=== PATIENT | female | born 1940 | race Caucasian/White ===

== ENCOUNTER 2021-12-04 18:03 | Emergency (ER) | payer MEDICARE, OTHER, SELFPAY ==
[2021-12-04 18:10] VITALS: BP 144/53; PULSE 56; TEMP 36.3; O2SAT 96; BMI 22.7
--- NOTE | 2021-12-04 18:23 | CRLHL7_ITS ---
For Patients: As a result of the Century Cures Act, medical imaging exams and procedure reports are released immediately into your electronic medical record. You may view this report before your referring provider. If you have questions, please contact your health care provider. Indication: Right buttock pain. Technique: Pelvis 1 view. Comparison: None. Findings: Bones: Alignment is normal. No fractures or bone lesions. Joint spaces: Mild degenerative changes of the bilateral SI joints and bilateral hips.. Soft tissues: Unremarkable. Impression: No findings to explain pain. Dictated by Jerry Reyes MD @ 12/04/2021 6:46:44 PM (Electronically Signed)
--- NOTE | 2021-12-04 18:24 | ED.BACK ---
HPI - Back Pain/Injury General Chief Complaint: Back Injury/Pain Stated Complaint: Lower back Pain Time Seen by Provider: 12/04/21 18:14 History of Present Illness HPI Narrative: This 81-year-old female comes in reporting pain in her right upper buttock radiating down a bit into her right upper leg. This began about a week ago and is not related to any particular injury event or strenuous activity. The patient states that she typically walks but has not had any new activity. She states that this pain keeps her awake at night. She does not report any midline pain along her spine. Related Data Home Medications Medication Instructions Recorded Confirmed fluoxetine 20 mg capsule 20 mg PO DAILY 12/04/21 12/04/21 folic acid 1 mg tablet 1 mg PO DAILY 12/04/21 12/04/21 methotrexate sodium 2.5 mg tablet 15 mg PO .weekly 12/04/21 12/04/21 Previous Rx's Medication Instructions Recorded methylprednisolone 4 mg tablets in 4 mg PO DAILY #21 ea 12/04/21 a dose pack (Medrol (Jessee)) Allergies Allergy/AdvReac Type Severity Reaction Status Date / Time No Known Drug Allergies Allergy Verified 12/04/21 18:13 Review of Systems Status of ROS: Reports: 10 or more systems reviewed and unremarkable except as noted in History and below Narrative: Constitutional: No fevers, no weight gain or loss. Eyes: No discharge. No vision changes. HENT: No congestion, no sore throat, no ear pain. Cardiovascular: No chest pain, no palpitations. Respiratory: No shortness of breath, no wheezes, no cough. Gastrointestinal: No abdominal pain, no vomiting, no diarrhea. Genitourinary: No dysuria, no hematuria. Musculoskeletal: Low back pain and right buttock pain as described above. Skin: No rashes, no pruritis. Neurological: No dizziness, weakness, sensory change, speech change. Endo/Heme/Allergies: No bruising or bleeding. No polydipsia. Pysch: no suicidality, no anxiety, no insomnia. All other systems reviewed and are negative. Exam Narrative: Exam Narrative: Constitutional: Well-developed, well-nourished, no acute distress. HEENT: Normocephalic, atraumatic. Neck: Normal range of motion. Nontender. Supple. Heart: Regular. No murmurs. Normal rate. Intact distal pulses. Lungs: Clear to auscultation. No chest discomfort. No wheezes, rhonchi, or rales. Abdomen: Normal bowel sounds. Nontender. No rebound tenderness. Genitalia: Deferred. Back: No midline tenderness. Normal range of motion. Pain is localized in right buttock just below the belt line and radiating a bit down into the lower buttock and right upper leg. Extremities: Normal range of motion. No injury. Skin: Intact. No rash. Warm. No erythema or pallor. Neurologic: No altered sensation. No weakness. Alert and oriented. Psychiatric: No suicidality. No anxiety or depression. No insomnia. Nursing notes and vitals signs are reviewed. Const: Vital Signs, click to edit/add: Vital Signs - 24 hr 12/04/21 18:10 Temperature 97.4 F L Pulse Rate [Left P ulse Oximeter] 56 L Blood Pressure [Ri ght Upper Arm] 144/53 H Pulse Oximetry 96 Oxygen Delivery Me thod Room Air Course Vital Signs Vital signs: Initial Vital Signs Temperature 97.4 F L 12/04/21 18:10 Temperature Source Temporal Artery Scan 12/04/21 18:10 Pulse Rate 56 L 12/04/21 18:10 Blood Pressure 144/53 H 12/04/21 18:10 Blood Pressure Mean 83 12/04/21 18:10 Blood Pressure Position Supine 12/04/21 18:10 Pulse Oximetry 96 12/04/21 18:10 Oxygen Delivery Method 12/04/21 18:10 Vital Signs Temperature 97.4 F L 12/04/21 18:10 Pulse Rate 56 L 12/04/21 18:10 Blood Pressure 144/53 H 12/04/21 18:10 Pulse Oximetry 96 12/04/21 18:10 Oxygen Delivery Method 12/04/21 18:10 Temperature 97.4 F L 12/04/21 18:10 Pulse Rate 56 L 12/04/21 18:10 Blood Pressure 144/53 H 12/04/21 18:10 Pulse Oximetry 96 12/04/21 18:10 Oxygen Delivery Method 12/04/21 18:10 MDM - Back Pain/Injury MDM Narrative Medical decision making narrative: This patient comes in with rather severe pain in her right buttock as described above. There was no particular injury event or strenuous activity to bring this on. X-ray of the pelvis was completed and the patient received an intramuscular injection of morphine 5 mg. X-ray of the pelvis shows no findings to explain the patient's pain. This is more likely due to soft tissue, in particular, the sciatic nerve and muscle spasm in the buttock. The patient did receive prescription for some tablets of [place] and Flexeril. These are sedating medicines but she was unable to sleep because the pain. She also received a prescription for Medrol Dosepak. I advised her to follow-up with her primary physician for further evaluation and management if not improving. Imaging Data XR Pelvis: Radiologist's impression: No findings to explain pain. Discharge Plan Discharge Clinical Impression: Sciatica Patient Disposition: Home, Self-Care Condition: Stable Instructions: Sciatica (ED) Additional Instructions: Take medication as needed and prescribed. Follow up with primary physician for ongoing management as needed. Prescriptions: New methylprednisolone [Medrol (Jessee)] 4 mg tablets,dose pack 4 mg PO DAILY Qty: 21 0RF No Action fluoxetine 20 mg capsule 20 mg PO DAILY Label Comments: TAKE ONE CAPSULE BY MOUTH (20MG) ONCE DAILY folic acid 1 mg tablet 1 mg PO DAILY Label Comments: TAKE ONE TABLET BY MOUTH ONCE DAILY methotrexate sodium 2.5 mg tablet 15 mg PO .weekly Label Comments: TAKE 6 TABLETS (15MG) BY MOUTH ONCE WEEKLY Follow Up/Referrals: Guerrero Hodge MD [Primary Care Provider] - Stand Alone Forms: [employer] Info Instructions
--- NOTE | 2021-12-04 18:36 | ED.NURSE ---
Apparent medication discrepancy noted by credit underwriter. Pt had 2 bottle of Prozac, many pills in both bottles still. Bottle instructions were 1 tablet daily. First bottle was fill date of 08/20/21 with original qty 90 pills (still many pills left). 2nd bottle was fill date of 11/15/21 and appeared unopened. MD and pt's daughter notified of discrepancy.
[2021-12-04] MEDS: MORPHINE 10 MG/ML inj 5 MG IM (18:51)
[2021-12-04 19:08] VITALS: BP 148/67; PULSE 56; RESP 18; O2SAT 95
== END 2021-12-04 19:15 | disposition home or self-care (01) ==
PROVIDERS: Emergency Provider Emergency Medicine Emergency Medical Services; PCP Family Medicine
DX: M54.41 Lumbago with sciatica, right side (principal)
CPT/HCPCS: 72170; 96372; 99283; 99284; J2270

== ENCOUNTER 2021-12-13 13:02 | Outpatient (CLI) | payer MEDICARE, OTHER, SELFPAY | END 2021-12-13 13:03 | disposition home or self-care (01) | PROVIDERS: PCP Family Medicine; Visit Provider Family Medicine | DX: S89.92XA Unspecified injury of left lower leg, initial encounter (principal); R44.1 Visual hallucinations; R41.82 Altered mental status, unspecified; W18.30XA Fall on same level, unspecified, initial encounter; Y92.099 Unspecified place in other non-institutional residence as the place of occurrence of the external cause | CPT/HCPCS: A0425; A0427 ==

== ENCOUNTER 2021-12-13 13:22 | Inpatient (IN) | payer MEDICARE, OTHER, SELFPAY ==
--- NOTE | 2021-12-13 13:47 | CRLHL7_ITS ---
For Patients: As a result of the Century Cures Act, medical imaging exams and procedure reports are released immediately into your electronic medical record. You may view this report before your referring provider. If you have questions, please contact your health care provider. INDICATION: Fall with confusion and weakness. TECHNIQUE: CT head without contrast. COMPARISON: None. FINDINGS: CSF spaces: Within normal limits for age. Brain parenchyma and extra-axial spaces: The schultz-white differentiation is normal. No sign of mass, hemorrhage, or midline shift. No extra-axial fluid collection. Right occipital lobe encephalomalacia. Skull base and calvarium: The visualized paranasal sinuses and mastoid air cells demonstrate no acute or significant findings. The visualized orbits are grossly unremarkable. No skull fractures. IMPRESSION: No acute findings present. 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 Remainder of the exam is unremarkable. Please note that all CT scans at this facility use dose modulation, iterative reconstruction, and/or weight-based dosing when appropriate to reduce radiation dose to as low as reasonably achievable. Dictated by Everardo Chandler MD @ 12/13/2021 2:40:31 PM (Electronically Signed)
--- NOTE | 2021-12-13 13:47 | CRLHL7_ITS ---
For Patients: As a result of the 21st Century Cures Act, medical imaging exams and procedure reports are released immediately into your electronic medical record. You may view this report before your referring provider. If you have questions, please contact your health care provider. INDICATION: Trauma COMPARISON: No TECHNIQUE: CT examination of the chest, abdomen and pelvis was performed without intravenous contrast. Thin section axial images were obtained from the thoracic inlet through the pubic symphysis. Oral contrast was not administered. Sagittal and coronal reformatted imaging was performed Please note that all CT scans at this facility use dose modulation, iterative reconstruction, and/or weight-based dosing when appropriate to reduce radiation dose to as low as reasonably achievable. FINDINGS: CHEST: Heart size normal. No mediastinal or hilar adenopathy or mass. No pericardial effusion. No abnormal fluid in the mediastinum. Atherosclerotic vascular and valvular calcifications noted. The lungs show biapical pleural-parenchymal scarring. Background pattern of emphysema and linear and reticular opacities consistent with scarring and fibrosis. Bibasilar atelectasis. No definite acute posttraumatic finding. No pleural effusion or pneumothorax. A few small nodules are noted which are statistically most likely benign. ABDOMEN AND PELVIS: LIVER/BILIARY SYSTEM:The liver is normal in size and configuration given the lack of intravenous contrast. There is no visible focal mass and there is no intra- or extra hepatic biliary ductal dilatation.The gall bladder appears normal. ADRENALS: Normal non-contrast appearance KIDNEYS, URETERS and BLADDER:The right kidney is unremarkable. And 2.8 centimeters cyst noted in the midpole on the left appearing to no obstructive uropathy. Distended but otherwise unremarkable appearing bladder. SPLEEN:Normal non-contrast appearance. PANCREAS: Normal non-contrast appearance. RETROPERITONEUM and MESENTERY: There is no mass, adenopathy or aortic aneurysm. Dense atherosclerotic vascular calcifications GASTROINTESTINAL SYSTEM: There is no evidence of diverticulitis, colitis, mechanical obstruction, or appendicitis. The small bowel as visualized appears normal.Fecal retention. Diverticulosis PELVIS: No mass, adenopathy or free fluid. OSSEOUS STRUCTURES and ABDOMINAL WALL: Demineralized osseous structures and degenerative changes. No visible acute osseous injury. Cutaneous and subcutaneous induration in the high left thoracic region anteriorly is probably hemorrhage associated with direct trauma. This is in the region of the left clavicle which is not fully visualized on this study. Consider radiography of this area. OTHER: No free fluid or free air. IMPRESSION: 1. CHEST: No evidence of intrathoracic injury on this noncontrast study. Chronic appearing abnormalities as described above 2. ABDOMEN AND PELVIS: No visible acute injury on this noncontrast study 3. SOFT TISSUES AND OSSEOUS STRUCTURES: Cutaneous and subcutaneous induration anterior to the left clavicle which is not fully visualized on this study. This is probably soft tissue contusion though consider clavicle radiography if this area is tender. No visible acute fracture or destructive process identified on this exam. Please note that all CT scans at this facility use dose modulation, iterative reconstruction, and/or weight-based dosing when appropriate to reduce radiation dose to as low as reasonably achievable. Dictated by Marko Bernard MD @ 12/13/2021 2:40:36 PM (Electronically Signed)
--- NOTE | 2021-12-13 13:51 | ED.GENADULT ---
HPI - General Adult General Time Seen by Provider: 13:51 Date Seen: 12/13/21 Chief complaint: Fall/Minor Trauma Stated complaint: Fall Time Seen by Provider: 12/13/21 13:33 Source: patient Mode of arrival: EMS Limitations: no limitations History of Present Illness HPI narrative: Patient is an 81 year white female who lives at [facility] in apparently assisted living, she was found on the ground this morning and brought by EMS to the hospital. The patient reports her about 3 years ago, but she has been confused about person place; at this point in the ER we do not note her baseline is in terms of mental status. She denies pain or injury, but there is some blistering on her left arm and some superficial skin avulsion consistent with being down for period of time. The patient's mouth is very dry. She denies other complaints. From her chart appear she has been on methotrexate. Denies cough fever, but the patient is a poor historian likely due to her medical illness Related Data Home Medications Medication Instructions Recorded Confirmed fluoxetine 20 mg capsule 20 mg PO DAILY 12/04/21 12/04/21 folic acid 1 mg tablet 1 mg PO DAILY 12/04/21 12/04/21 methotrexate sodium 2.5 mg tablet 15 mg PO .weekly 12/04/21 12/04/21 Previous Rx's Medication Instructions Recorded methylprednisolone 4 mg tablets in 4 mg PO DAILY #21 ea 12/04/21 a dose pack (Medrol ([place])) Allergies Allergy/AdvReac Type Severity Reaction Status Date / Time No Known Drug Allergies Allergy Verified 12/04/21 18:13 Review of Systems Narrative: Unable to obtain accurate review of systems due to patient's cognitive condition, she denies any pain or discomfort, denies chest pain or shortness of breath Exam Narrative: Exam Narrative: Objective: In general the patient is alert, she talks in understandable sentences, but she appears easily confused. Talks about living with her but he 3 years ago by her report Vital signs are being obtained HEENT shows severely dry mucous membranes in the mouth no obvious facial asymmetry neck is supple Chest is clear Heart rate and rhythm regular 2/6 systolic murmur occasional ectopic beat noted Abdomen benign soft nontender, extremities she moves her hips fully I am able to flex extend her hips fully internally externally rotate them she has got some skin changes on her left forearm that are like small blisters that are opened, non infectious, she denies any back pain. Neurologically is grossly nonfocal Const: Vital Signs, click to edit/add: Vital Signs - 24 hr 12/13/21 14:09 Temperature 96.7 F L Pulse Rate [Right Pulse Oximeter] 86 Respiratory Rate 18 Blood Pressure [Ri ght Upper Arm] 180/64 H Pulse Oximetry 97 Oxygen Delivery Me thod Room Air Course Vital Signs Vital signs: Initial Vital Signs Temperature 96.7 F L 12/13/21 14:09 Temperature Source Temporal Artery Scan 12/13/21 14:09 Pulse Rate 86 12/13/21 14:09 Respiratory Rate 18 12/13/21 14:09 Blood Pressure 180/64 H 12/13/21 14:09 Blood Pressure Mean 102 12/13/21 14:09 Blood Pressure Position Sitting 12/13/21 14:09 Pulse Oximetry 97 12/13/21 14:09 Oxygen Delivery Method 12/13/21 14:09 Vital Signs Temperature 96.7 F L 12/13/21 14:09 Pulse Rate 86 12/13/21 14:09 Respiratory Rate 18 12/13/21 14:09 Blood Pressure 180/64 H 12/13/21 14:09 Pulse Oximetry 97 12/13/21 14:09 Oxygen Delivery Method 12/13/21 14:09 Temperature 96.7 F L 12/13/21 14:09 Pulse Rate 86 12/13/21 14:09 Respiratory Rate 18 12/13/21 14:09 Blood Pressure 180/64 H 12/13/21 14:09 Pulse Oximetry 97 12/13/21 14:09 Oxygen Delivery Method 12/13/21 14:09 Medical Decision Making [facility] Narrative Medical decision making narrative: Patient is an 81 year white female with probable rheumatic disease on methotrexate by chart history, who lives in assisted living and has possibly been down for at least a couple of days on the ground. She is severely dehydrated. I think would be appropriate to rule out infection, check urinalysis, blood cultures, CT scan of the head chest abdomen. Urinalysis cardiac studies, EKG, telemetry, oximetry, IV fluid as mention. CPK will be checked as well rule out rhabdo Lab Data Labs: Lab Results 12/13/21 12/13/21 12/13/21 Range/Units 13:49 14:00 14:00 WBC 21.78 H (4.50-11.00) K/uL RBC 4.02 (4.00-5.20) m/uL Hgb 12.9 (12.0-16.0) gm/dL Hct 38.1 (33.0-51.0) % MCV 95 (80-100) fL MCH 32 (26-34) pg MCHC 34 (32-36) gm/dL RDW Coeff of Kathleen 15.0 (11.5-15.5) % Plt Count 237 (140-440) K/uL Neut % (Auto) 89.5 H (42.0-72.0) % Lymph % (Auto) 1.9 L (20-44) % Dillon % (Auto) 8.1 (0.0-11.0) % Eos % (Auto) 0.0 (0.0-7.0) % Baso % (Auto) 0.0 (0.0-3.0) % Neut # (Auto) 19.50 H (1.7-7.0) K/uL Lymph # (Auto) 0.40 L (0.90-2.90) K/uL Dillon # (Auto) 1.80 H (0.00-0.90) K/UL Eos # (Auto) 0.00 (0.00-0.50) K/uL Baso # (Auto) 0.00 (0.00-0.30) K/uL Abs Immat Gran (auto) 0.11 (0.00-0.30) K/uL VBG pH (7.32-7.43) VBG pCO2 (40-50) mmHG VBG pO2 (25-47) mmHG VBG HCO3 (21-28) mmol/L Sodium Cancelled Potassium Cancelled Chloride Cancelled Carbon Dioxide Cancelled BUN Cancelled Creatinine Cancelled Estimated Creat Clear Cancelled Estimated GFR Cancelled Glucose Cancelled Venous Lactic Acid (Serial Order) Calcium Cancelled Total Bilirubin (0.1-1.5) mg/dL Direct Bilirubin (0.0-0.5) mg/dL AST (12-35) U/L ALT (4-35) U/L Alkaline Phosphatase (40-150) U/L Total Creatine Kinase Cancelled Troponin I (0.01-0.04) ng/mL C-Reactive Protein (0.5-1.0) mg/dL NT-Pro-B Natriuret Pep (0-450) PG/mL Total Protein (6.0-8.3) g/dL Albumin (3.3-5.0) g/dL Amylase Cancelled Ethyl Alcohol (0.01-0.03) % SARS-CoV-2 (PCR) (Negative) 12/13/21 12/13/21 12/13/21 Range/Units 14:00 14:00 14:25 WBC (4.50-11.00) K/uL RBC (4.00-5.20) m/uL Hgb (12.0-16.0) gm/dL Hct (33.0-51.0) % MCV (80-100) fL MCH (26-34) pg MCHC (32-36) gm/dL RDW Coeff of Kathleen (11.5-15.5) % Plt Count (140-440) K/uL Neut % (Auto) (42.0-72.0) % Lymph % (Auto) (20-44) % Dillon % (Auto) (0.0-11.0) % Eos % (Auto) (0.0-7.0) % Baso % (Auto) (0.0-3.0) % Neut # (Auto) (1.7-7.0) K/uL Lymph # (Auto) (0.90-2.90) K/uL Dillon # (Auto) (0.00-0.90) K/UL Eos # (Auto) (0.00-0.50) K/uL Baso # (Auto) (0.00-0.30) K/uL Abs Immat Gran (auto) (0.00-0.30) K/uL VBG pH 7.343 (7.32-7.43) VBG pCO2 41 (40-50) mmHG VBG pO2 59.8 H (25-47) mmHG VBG HCO3 23 (21-28) mmol/L Sodium 136 Potassium 3.9 Chloride 101 Carbon Dioxide 21 BUN 42 H Creatinine 0.8 Estimated Creat Clear Estimated GFR 74 Glucose 147 H Venous Lactic Acid (Serial Order) Calcium 8.9 Total Bilirubin 1.1 (0.1-1.5) mg/dL Direct Bilirubin 0.7 H (0.0-0.5) mg/dL AST 87 H (12-35) U/L ALT 71 H (4-35) U/L Alkaline Phosphatase 145 (40-150) U/L Total Creatine Kinase 479 H Troponin I 0.02 (0.01-0.04) ng/mL C-Reactive Protein 5.4 H (0.5-1.0) mg/dL NT-Pro-B Natriuret Pep 2740 H (0-450) PG/mL Total Protein 7.9 (6.0-8.3) g/dL Albumin 3.9 (3.3-5.0) g/dL Amylase 61 Ethyl Alcohol < 0.01 L (0.01-0.03) % SARS-CoV-2 (PCR) Negative SARS-CoV-2 (Negative) Discharge Plan Discharge Clinical Impression: Weakness Prescriptions: No Action fluoxetine 20 mg capsule 20 mg PO DAILY Label Comments: TAKE ONE CAPSULE BY MOUTH (20MG) ONCE DAILY folic acid 1 mg tablet 1 mg PO DAILY Label Comments: TAKE ONE TABLET BY MOUTH ONCE DAILY methotrexate sodium 2.5 mg tablet 15 mg PO .weekly Label Comments: TAKE 6 TABLETS (15MG) BY MOUTH ONCE WEEKLY methylprednisolone [Medrol ([place])] 4 mg tablets,dose pack 4 mg PO DAILY Qty: 21 0RF Follow Up/Referrals: Guerrero Hodge MD [Primary Care Provider] -
[2021-12-13 14:09] VITALS: BP 180/64; PULSE 86; RESP 18; TEMP 35.9; O2SAT 97
[2021-12-13 14:11] LABS: HCO3 VBG 23 mmol/L (21-28); PCO2 VBG 41 mmHG (40-50); PO2 VBG 59.8 mmHG (25-47); pH VBG 7.343 (7.32-7.43)
[2021-12-13 14:18] LABS: Lactate Sepsis w/Reflex* 3.4 mmol/L (0.5-1.9)
[2021-12-13 14:42] LABS: INR 1.47 (0.91-1.10); Prothrombin Time 18.2 Seconds
[2021-12-13 14:43] LABS: Partial Thromboplastin Time* 36 Seconds (23-33)
[2021-12-13 14:47] LABS: Albumin* 3.9 g/dL (3.3-5.0); Chloride* 101 mmol/L (96-114)
[2021-12-13 14:48] LABS: Potassium* 3.9 mmol/L (3.6-5.1); Sodium* 136 mmol/L (135-149)
[2021-12-13 14:50] LABS: Amylase* 61 U/L (18-89); Bilirubin Direct* 0.7 mg/dL (0.0-0.5); Bilirubin Total* 1.1 mg/dL (0.1-1.5); Carbon Dioxide* 21 mmol/L (20-32); Creatinine* 0.8 mg/dL (0.5-1.5); Estimated Glomerular Filt Rate 74 ml/min; Total Protein* 7.9 g/dL (6.0-8.3)
[2021-12-13 14:51] LABS: Alanine Aminotransferase* 71 U/L (4-35); Alkaline Phosphatase* 145 U/L (40-150); Aspartate Amino Transferase* 87 U/L (12-35); Blood Urea Nitrogen* 42 mg/dL (7-30); Calcium* 8.9 mg/dL (8.4-10.6); Creatine Kinase* 479 U/L (41-117); Glucose* 147 mg/dL (60-115)
[2021-12-13 14:53] LABS: C Reactive Protein* 5.4 mg/dL (0.5-1.0)
[2021-12-13 14:54] LABS: Ethanol* < 0.01 % (0.01-0.03); Hematocrit 38.1 % (33.0-51.0); Hemoglobin* 12.9 gm/dL (12.0-16.0); Immature Granulocytes Abs Auto 0.11 K/uL (0.00-0.30); Lymphocytes Percent Auto 1.9 % (20-44); Mean Corpuscular HGB Conc 34 gm/dL (32-36); Mean Corpuscular Hemoglobin 32 pg (26-34); Mean Corpuscular Volume 95 fL (80-100); Monocytes Percent Auto 8.1 % (0.0-11.0); Neutrophils Percent Auto 89.5 % (42.0-72.0); Platelet Count* 237 K/uL (140-440); Red Blood Count 4.02 m/uL (4.00-5.20); White Blood Count* 21.78 K/uL (4.50-11.00)
[2021-12-13 14:56] LABS: Slide Review Reflex No
[2021-12-13 14:59] LABS: NT Pro B Type NatriureticPept* 2740 PG/mL (0-450)
[2021-12-13] MEDS: 0.9 % SODIUM CHLORIDE 1000 ml 1,000 ML 6000 ML IV (15:00)
[2021-12-13 15:02] LABS: Troponin I* 0.02 ng/mL (0.01-0.04)
[2021-12-13 15:33] VITALS: BP 170/78; PULSE 88; RESP 18; TEMP 36.2; O2SAT 97
[2021-12-13 15:33] LABS: SARS PCR* Negative SARS-CoV-2 (Negative)
[2021-12-13] MEDS: PIPERACILLIN/TAZOBACTAM 3.375 GM in 0.9 % SODIUM CHLORIDE Mini-bag 100 ML IVPB (15:48)
--- NOTE | 2021-12-13 15:54 | W.PC.EDHO ---
Primary Language: Preferred Language: Orientation Status: [] Alert & Oriented [x] Slight Confusion [] Known Dx Dementia Transfers By: [] Assist of 1 [x] Assist of 2 [] Lift Active Medications Discontinued Medications Generic Name Dose Route Start Last Admin Trade Name Freq PRN Reason Stop Dose Admin Sodium Chloride 1,000 mls @ 6,000 mls/hr 12/13/21 14:00 12/13/21 15:00 0.9 % Sodium Chloride 1000 Ml IV 12/13/21 14:09 6,000 mls/hr .Q10M JIMMY Administration Piperacillin Sod/Tazobactam 100 mls @ 200 mls/hr 12/13/21 15:03 12/13/21 15:48 Sod 3.375 gm/ Sodium Chloride IVPB 12/13/21 15:04 200 mls/hr ONCE ONE Administration Description of Symptoms ED Triage Present Problem per EMS, pt was found down on floor x 3 days. pt Description has no physical Female History Patient Patient No Oxygen Administration Pulse Oximetry 97 Oxygen Delivery Method Room Air
[2021-12-13 16:39] LABS: Lactate Sepsis 2 Hour 1.6 mmol/L (0.5-1.9)
[2021-12-13 17:03] VITALS: BP 163/72; PULSE 74; RESP 20; TEMP 37.4; O2SAT 97
[2021-12-13] MEDS: 0.9 % SODIUM CHLORIDE 1000 ml 1,000 ML IV (18:04)
--- NOTE | 2021-12-13 18:18 | PC.NURSE ---
End of Shift Note: Patient arrived to the floor around 1700 from the ER. Patient at first was answering questions appropriately she was able to tell me her name and that she was in the hospital but when asked her what year it is she responds with 2020. She the proceeds to talk to others in the room that are not present at this time as it was only her and this designer writer in the room. Noted her to be inc of urine so did wash her up from head to toe. Was able to then view her skin which is intact for the most part slightly pink groin. Her bottom is intact no open areas noted is slightly pink. Back too is intact. Under her breast is a little reddened. She is currently eating dinner so have not completed a whole assessment heart, lungs, bowels as of yet. She also needs to do some oral care yet. She does have two daughters who are present currently in the room with her. She is currently receiving IV fluids. Still needs to do a UA. When she was inc urine does appear to be on the dark side from what could see in her brief. She also has a cardiac catheterization technician on but with her eating and moving have been unable to get a tele strip ran on her. Will continue to monitor and give report to the next shift.
[2021-12-13 19:45] VITALS: BP 169/90; PULSE 94; RESP 24; TEMP 37.4; O2SAT 100
--- NOTE | 2021-12-13 20:05 | P.IMHP_ITS ---
Hospitalist- H&P: HPI History of Present Illness Time Seen by Provider: 15:00 Date Seen: 12/13/21 Chief complaint: Fall Narrative: Lori Scott is a 81 year old woman who lives in an assisted living setting at [facility]. Today the patient failed to pick and shovel worker her meals on wheels. Staff were concerned and checked on her and found her on the floor. Patient was not making sense when they try talking with her. They brought to the emergency department for further assessment. In trying to piecemeal what happened, they are getting virtually no meaningful information from the patient. According to the patient's daughters, the assisted living setting has a procedure for checking on patient's daily via telephone call and sometimes monitoring there temperatures daily. For some reason it appears as though this was not followed on Monday, Monday, Monday. In hindsight no one has spoken with the patient or seen the patient during this time frame. The conjecture that likely the patient was on the floor for at least the past 3 days. All of her medications that she ordinarily takes and are set up in [facility] [employer] were still not taken from that time frame. Patient has back and lower extremity pains and discomforts which are chronic. Does not have worsening of these pains. Does not have loss of function of any extremity or side of her body. It is difficult to carry on a conversation with the patient due to her hyper alert and manic type disposition. Be that as it may, she denies loss of consciousness. She does not recall much of the past several days. She states she has not ate or drank for a while and that she does not have an appetite. Denies fevers, rigors, diaphoresis. Denies chest heaviness, pressure, tightness, or pain. Denies dyspnea or cough. Denies syncope or near-syncope. Denies nausea or vomiting. Denies palpitations. Denies edema. Denies constipation, diarrhea. Denies dysphagia, odynophagia, dyspepsia or abdominal pain. Denies any type of blood loss. No recent trauma or injury. Review of Systems Status of ROS: Reports: 10 or more systems reviewed and unremarkable except as noted in History and below Narrative: No weight gain or weight loss. No upper or lower respiratory tract symptoms. No gastrointestinal or genitourinary tract symptoms. Seems to have very little memory of what transpired over the last 2-3 days. Speaking rapidly and sequentially about various things. She tells me and others to speak with people who are around her home we cannot see. Some of these people whom she refers to our relatives including her . Easily redirectable in conversation. No obvious suicidal thoughts or ideations. No obvious homicidal thoughts or ideations. No focal motor neurologic deficits. No polyuria, polydipsia, polyphagia. [facility] Medical History Cognitive impairment Dysthymia Essential (primary) hypertension Memory deficit Methotrexate, termite control service representative, current use Rheumatoid arthritis, seropositive Sensorineural hearing loss (SNHL) of both ears Surgical History History of section Family History Mother Gastric cancer Father Cancer Brother Cancer Social History Highest level of school completed/degree received: don't know Smoking Status: Unknown if ever smoked Do you use any of these nicotine containing products: None Second hand tobacco smoke exposure: No How often do you have a drink containing alcohol: monthly or less AUDIT-C Alcohol total score: 1 Non-prescribed substance use: denies use Meds Home Medications and Allergies Home Medications Medication Instructions Recorded Confirmed Type fluoxetine 20 mg capsule 20 mg PO DAILY 12/04/21 12/13/21 History folic acid 1 mg tablet 1 mg PO DAILY 12/04/21 12/13/21 History methotrexate sodium 2.5 mg tablet 15 mg PO .weekly 12/04/21 12/13/21 History aspirin 81 mg tablet,delayed 81 mg PO DAILY 12/13/21 12/13/21 History release donepezil 5 mg tablet 5 mg PO HS 12/13/21 12/13/21 History rivastigmine 4.6 mg/24 hour 1 patch transdermal DAILY 12/13/21 12/13/21 History transdermal patch Allergies Allergy/AdvReac Type Severity Reaction Status Date / Time No Known Drug Allergies Allergy Verified 12/04/21 18:13 Exam Narrative: Exam Narrative: Appears manic. Speaking a lot and not listening well. Moves from 1 topic to another quickly. Often interjects and ask questions of people who are not there and asked us to talk with him as well. Appears comfortable and in no acute distress. Alert, oriented to self only not place, time, or situation. Has disorganized thinking. Nevertheless recognizes her daughters. Has inattention. Difficult for her to focus. Almost has a flight of ideas. By the time I see her she is certainly moving all 4 extremities. Fidgety. Seems hypervigilant. Pupils are equally round and reactive to light and accommodation. Extraocular muscles intact. Vision seems preserved. Hearing for the most part preserved and intact. Normal tympanic membranes bilaterally. Midline nasal septum. Very dry buccal mucosa. Lungs remarkably clear to auscultation. Heart tones with regular rhythm normal S1-S2. Abdomen with active bowel sounds, soft, nontender. No rebound or guarding. [id number] swelling of left upper extremity with blistering. Reportedly this is improving over time from when she was 1st found. Skin otherwise intact. No petechiae, rashes, cyanosis. Moves all 4 extremities. Const: Vital Signs, click to edit/add: Vital Signs - 24 hr 12/13/21 14:09 12/13/21 15:33 12/13/21 17:03 Temperature 96.7 F L 97.2 F L 99.4 F Pulse Rate [Right Pulse Oximeter] 86 88 Pulse Rate [Right Radial] 74 Respiratory Rate 18 18 20 Blood Pressure [Ri ght Arm] 163/72 H Blood Pressure [Ri ght Upper Arm] 180/64 H 170/78 H Pulse Oximetry 97 97 97 Oxygen Delivery Me thod Room Air Room Air Room Air Documenting provider has reviewed patient's vital signs: yes Hospitalist - H&P: Result Labs Labs: Short CBC 12/13/21 Range/Units 14:00 WBC 21.78 H (4.50-11.00) K/uL Hgb 12.9 (12.0-16.0) gm/dL Hct 38.1 (33.0-51.0) % Plt Count 237 (140-440) K/uL BMP 12/13/21 12/13/21 14:00 14:00 Sodium Cancelled 136 Potassium Cancelled 3.9 Chloride Cancelled 101 Carbon Dioxide Cancelled 21 BUN Cancelled 42 H Creatinine Cancelled 0.8 Glucose Cancelled 147 H Calcium Cancelled 8.9 Cardiac Enzymes 12/13/21 12/13/21 12/13/21 Range/Units 14:00 14:00 14:00 Total Creatine Kinase Cancelled 479 H Cancelled Troponin I 0.02 (0.01-0.04) ng/mL Liver Function 12/13/21 Range/Units 14:00 Total Bilirubin 1.1 (0.1-1.5) mg/dL Direct Bilirubin 0.7 H (0.0-0.5) mg/dL AST 87 H (12-35) U/L ALT 71 H (4-35) U/L Alkaline Phosphatase 145 (40-150) U/L Albumin 3.9 (3.3-5.0) g/dL Assessment and Plan Assessment and plan (1) Acute delirium: Status: Acute Assessment and Plan: Etiology is likely multifactorial. With baseline declining cognition, most consistent with evolving dementia of the Alzheimer's type, in combination with her acute condition, these seem to have culminated in her delirious state. Consider head injury and trauma, liver failure, infection, evolving psychiatric condition. (2) Weakness: Status: Acute (3) Memory deficit: Status: Acute (4) Cognitive impairment: Status: Acute (5) Methotrexate, termite control service representative, current use: Status: Acute (6) Rheumatoid arthritis, seropositive: Status: Acute (7) Sciatica: Status: Acute (8) Sensorineural hearing loss (SNHL) of both ears: Status: Acute (9) Rhabdomyolysis: Status: Acute (10) Abnormal liver function tests: Status: Acute (11) Leukocytosis: Status: Acute (12) Dehydration: Status: Acute Plan 1. Reviewed impression with patient and her 2 daughters Supriya and Luciana. 2. Initiated discussion with our social insurance adviser staff, requesting them to assist with discharge disposition planning. 3. Physical occupational therapy to assess and treat. 4. Will attempt non pharmacological support of her delirium at this time. 5. IV fluid rehydration regarding the rhabdomyolysis. Monitor CKs. 6. Monitor other labs including CBC and liver function studies. Certainly the methotrexate that she takes can cause these liver function abnormalities. 7. Hold the methotrexate for now. 8. Continue with other supportive efforts. 9. Blood cultures urine cultures obtained. Will hold off on empiric antibiotics at this juncture. 10. The patient and her 2 daughters are agreeable to above stated plans and recommendations.
[2021-12-13 22:03] VITALS: PULSE 87
[2021-12-13 23:00] VITALS: BP 142/68; PULSE 88; RESP 28; TEMP 37.3; O2SAT 100
[2021-12-14] VITALS (21 sets, daily range): BP systolic 91–167; BP diastolic 47–79; PULSE 69–88; RESP 20–28; TEMP 36.2–37.2; O2SAT 92–98
--- NOTE | 2021-12-14 04:36 | PC.NURSE ---
[facility] notified of positive BC
--- NOTE | 2021-12-14 04:54 | W.PM.CROSSCO ---
Assessment and Plan Assessment and plan (1) Leukocytosis: Status: Acute (2) Bacteremia: Status: Acute Plan Clyde Immanuel Pattersonist Cross Cover Note eHospitalist was contacted by nursing staff with concern of positive blood cultures Notified of persistently positive blood cultures, + GPC. Chart reviewed. Patient is on vancomycin. Prior culture results reviewed, appears organism is MSSA. If no evidence of MRSA, would transition from vancomycin to cefazolin or nafcillin/oxacillin. Will defer to day provider to adjust if feel it is warranted. Thank you for including Carlos A Carvajal in this patient's care. This service is available for further assistance as requested by your care team by calling [phone]. Dictation Comment: This document was transcribed utilizing [id number] technology ([employer] software). Occasional mistranslation may occur.
[2021-12-14] MEDS: PIPERACILLIN/TAZOBACTAM 3.375 GM in 0.9 % SODIUM CHLORIDE Mini-bag 100 ML IVPB ×4 (05:42→22:39)
[2021-12-14 06:47] LABS: HCO3 VBG 24 mmol/L (21-28); Lactate* 0.8 mmol/L (0.5-1.9); PCO2 VBG 36 mmHG (40-50); PO2 VBG 79.7 mmHG (25-47); pH VBG 7.437 (7.32-7.43)
[2021-12-14 06:56] LABS: Basophils Percent Auto 0.1 % (0.0-3.0); Eosinophils Percent Auto 0.1 % (0.0-7.0); Hematocrit 31.3 % (33.0-51.0); Hemoglobin* 10.6 gm/dL (12.0-16.0); Immature Granulocytes Abs Auto 0.04 K/uL (0.00-0.30); Lymphocytes Percent Auto 4.2 % (20-44); Mean Corpuscular HGB Conc 34 gm/dL (32-36); Mean Corpuscular Hemoglobin 32 pg (26-34); Mean Corpuscular Volume 94 fL (80-100); Monocytes Percent Auto 9.5 % (0.0-11.0); Neutrophils Percent Auto 85.8 % (42.0-72.0); Platelet Count* 191 K/uL (140-440); RDW Coefficient of Variation % 15.5 % (11.5-15.5); Red Blood Count 3.32 m/uL (4.00-5.20); White Blood Count* 15.59 K/uL (4.50-11.00)
--- NOTE | 2021-12-14 06:58 | PC.NURSE ---
END OF SHIFT NOTE: PT PLEASANTLY CONFUSED. PT SHOWS SIGNS OF DELIRIUM; HALLUCINATING AND SPEAKING TO PEOPLE NOT PRESENT IN THE ROOM; INCLUDING HER WHO HAS BEEN FOR 1.5YRS. PT EASILY DISTRACTED AND SPEAKING TO HALLUCINATIONS.?ATTEMPTED TO PROVIDED ORAL HYGIENE TO PT; PT DECLINED. ATTEMPTED TO TRANSFER PT TO [facility] TO VOID, HOWEVER PT WAS TOO WEAK TO SIT UP. UPDATE VIA PHONE CALL WITH DAUGHTER ALIRIO. T&P Q2H. BLOOD CULTURE RESULTS- GRAM POSITIVE COCCI IN CLUSTERS. TELE READS NSR. PT STARTED ZOSYN AND VANCOMYCIN. MILD SWELLING TO LUE AND BLISTERING. OPEN TO AIR NO DRAINAGE. ATTEMPTED TO OBTAIN UA WITH BED KEE; PT UNABLE TO VOID AT THAT TIME. CHANGED X2 INCONTINENT WET BRIEFS.
[2021-12-14 07:06] LABS: Slide Review Reflex No
[2021-12-14 07:09] LABS: Albumin* 2.7 g/dL (3.3-5.0); Chloride* 105 mmol/L (96-114)
[2021-12-14 07:10] LABS: Potassium* 3.5 mmol/L (3.6-5.1); Sodium* 133 mmol/L (135-149)
[2021-12-14 07:11] LABS: Cholesterol* 163 mg/dL (90-199); Creatinine* 0.8 mg/dL (0.5-1.5); Est. Creatinine Clearance* 38.75; Estimated Glomerular Filt Rate 74 ml/min
[2021-12-14 07:12] LABS: Alkaline Phosphatase* 89 U/L (40-150); Aspartate Amino Transferase* 83 U/L (12-35); Bilirubin Direct* 0.3 mg/dL (0.0-0.5); Bilirubin Total* 0.6 mg/dL (0.1-1.5); Blood Urea Nitrogen* 31 mg/dL (7-30); Carbon Dioxide* 23 mmol/L (20-32); Gamma Glutamyl Transpeptidase* 51 U/L (8-55); Glucose* 129 mg/dL (60-115); Phosphorus* 2.1 mg/dL (2.5-4.5); Total Protein* 5.8 g/dL (6.0-8.3); Triglycerides* 88 mg/dL (40-149)
[2021-12-14 07:13] LABS: Alanine Aminotransferase* 51 U/L (4-35); Calcium* 7.7 mg/dL (8.4-10.6); HDL Cholesterol* 37 mg/dL (>=50); LDL Cholesterol Calculated 108 mg/dL (<100); Magnesium* 2.1 mg/dL (1.5-2.6)
[2021-12-14 07:34] LABS: INR 1.17 (0.91-1.10); Prothrombin Time 15.3 Seconds; Troponin I* 0.07 ng/mL (0.01-0.04)
[2021-12-14 07:42] LABS: Thyroid Stimulating Hormone* 0.777 uIU/mL (0.270-4.20)
[2021-12-14] MEDS: ACETAMINOPHEN 325 MG TABLET 650 MG PO (07:49)
[2021-12-14 08:00] LABS: Creatine Kinase* 206 U/L (41-117)
[2021-12-14 08:10] LABS: NT Pro B Type NatriureticPept* 3080 PG/mL (0-450)
[2021-12-14] MEDS: ASPIRIN 81 MG TABLET EC PO (08:37)
[2021-12-14] MEDS: FLUOXETINE HCL 20 MG CAPSULE PO (08:37)
[2021-12-14] MEDS: FOLIC ACID 1 MG TABLET PO (08:37)
[2021-12-14 10:07] LABS: Appearance Urine Slightly Cloudy (Clear); Bilirubin Urine Negative (Negative); Blood Urine 2+ (Negative); Color Urine Yellow (Yellow); Glucose Urine Negative (Negative); Ketones Urine Trace (Negative); Leukocyte Esterase Urine Negative (Negative); Nitrite Urine Negative (Negative); Protein Urine 2+ (Negative); Specific Gravity Urine 1.025 (1.000-1.030)
--- NOTE | 2021-12-14 10:11 | PM.IMPN1 ---
Progress Note: A&P Assessment and plan (1) Sepsis, Gram positive: Status: Acute Assessment and Plan: move to CCU portable chest place garza gram + bacteremia. source unclear at this time - mouth/skin. no obvious joints involved. IV vanc and zosyn fluids coagulopathy improved blood mayra unremarkable, reassuring bilirubin improving (2) Gram-positive bacteremia: Status: Acute Assessment and Plan: IV vanc/zosyn awaiting c/s (3) Acute delirium: Status: Acute Assessment and Plan: worsening. less responsive. (4) Leukocytosis: Status: Acute Assessment and Plan: improving (5) Rhabdomyolysis: Status: Acute Assessment and Plan: mild, improving. normal renal function. (6) CHF with unknown LVEF: Status: Acute Assessment and Plan: fluid status: weight is up from baseline, down overnight IV lasix one dose, potassium supplementation (7) Coagulation disorder: Status: Acute Assessment and Plan: improved (8) Cognitive impairment: Status: Acute (9) Rheumatoid arthritis, seropositive: Status: Acute (10) Methotrexate, alf, current use: Status: Acute Subjective Date Seen: 12/14/21 Interval history: Daily Progress Note - Hospital Medicine Day #: 1 CC: Sepsis, positive blood cultures. OVERNIGHT UPDATES FROM STAFF & MED, LAB, IMAGING UPDATES Team Note END OF SHIFT NOTE: PT PLEASANTLY CONFUSED. PT SHOWS SIGNS OF DELIRIUM; HALLUCINATING AND SPEAKING TO PEOPLE NOT PRESENT IN THE ROOM; INCLUDING HER WHO HAS BEEN FOR 1.5YRS. PT EASILY DISTRACTED AND SPEAKING TO HALLUCINATIONS. ATTEMPTED TO PROVIDED ORAL HYGIENE TO PT; PT DECLINED. ATTEMPTED TO TRANSFER PT TO [facility] TO VOID, HOWEVER PT WAS TOO WEAK TO SIT UP. UPDATE VIA PHONE CALL WITH DAUGHTER ALIRIO. T&P Q2H. BLOOD CULTURE RESULTS- GRAM POSITIVE COCCI IN CLUSTERS. TELE READS NSR. PT STARTED ZOSYN AND VANCOMYCIN. MILD SWELLING TO LUE AND BLISTERING. OPEN TO AIR NO DRAINAGE. ATTEMPTED TO OBTAIN UA WITH BED KEE; PT UNABLE TO VOID AT THAT TIME. CHANGED X2 INCONTINENT WET BRIEFS. Spoke with her daughters who are bedside this morning. Lori is much less responsive. We have noted the below findings which include positive blood cultures, bruising on the left side of her face. We discussed sepsis and the organ systems it seems to be affecting. I talked about my treatment plan. Spent 30 minutes bedside. All imaging reviewed: CT head, CAP CT and pelvic xray. LABS: Her leukocytosis is downtrending 21-15. She is growing Gram-positive cocci in at least 1 of her bottles. With hydration it shows that she is anemic 10.6 Coagulopathy has somewhat improved Troponin bumped this morning from normal yesterday Her potassium has dropped to mildly low Her CK is down trending. Blood gas was reassuring The bilirubin has improved REVIEW OF SYSTEMS: SEE SUBJECTIVE Not possible given her current alertness OBJECTIVE: VITALS: SEE ABOVE LUNGS: CLEAR. Coarse sounds bilaterally CARDIAC: S1S2. HER WEIGHT THE LAST TIME SHE WAS IN THE EMERGENCY ROOM EARLIER THIS MONTH WAS 58 KG, 127 LB. LAST NIGHT HER WEIGHT WAS 139.7 LB, 63.5 KILOS THIS MORNING IS 134, 61 KILOS Patient is less responsive today. sleeping and groggy to stimulation. I spoke to her and she opened her eyes and tried to smile - she looked to her left and noted her daughters and promptly went back to sleep. Mild tachypnea without accessory muscle use. Sats borderline at 90% on room air. The left side of her face, left shoulder are bruised/swollen. tender across left rib cage and grimaces with range of motion of her left leg. skin irritation on her right elbow and left forearm. DISPOSITION/POTENTIAL DISCHARGE - LIKELY TO RETURN TO PREVIOUS LIVING SITUATION. TOTAL TIME IS 35 MINUTES WITH GREATER THAN 50% SPENT IN COUNSELING AND COORDINATION OF CARE. Exam Const: Vital Signs, click to edit/add: Vital Signs - 24 hr 12/13/21 14:09 12/13/21 15:33 12/13/21 17:03 Temperature 96.7 F L 97.2 F L 99.4 F Pulse Rate Pulse Rate [Right Pulse Oximeter] 86 88 Pulse Rate [Right Radial] 74 Respiratory Rate 18 18 20 Blood Pressure [Ri ght Arm] 163/72 H Blood Pressure [Ri ght Upper Arm] 180/64 H 170/78 H Pulse Oximetry 97 97 97 Oxygen Delivery Me thod Room Air Room Air Room Air 12/13/21 19:45 12/13/21 22:03 12/13/21 23:00 Temperature 99.3 F Pulse Rate 87 Pulse Rate [Right Pulse Oximeter] Pulse Rate [Right Radial] 94 88 Respiratory Rate 24 28 H Blood Pressure [Ri ght Arm] 169/90 H Blood Pressure [Ri ght Upper Arm] Pulse Oximetry 100 Oxygen Delivery Me thod Room Air 12/13/21 23:00 12/14/21 03:00 12/14/21 07:00 Temperature 99.2 F 98.7 F Pulse Rate Pulse Rate [Right Pulse Oximeter] Pulse Rate [Right Radial] 88 86 88 Respiratory Rate 28 H 28 H 25 H Blood Pressure [Ri ght Arm] 142/68 H 156/74 H Blood Pressure [Ri ght Upper Arm] Pulse Oximetry 100 92 Oxygen Delivery Me thod Room Air Room Air 12/14/21 07:00 Temperature 98.9 F Pulse Rate Pulse Rate [Right Pulse Oximeter] Pulse Rate [Right Radial] 88 Respiratory Rate 25 H Blood Pressure [Ri ght Arm] 167/79 H Blood Pressure [Ri ght Upper Arm] Pulse Oximetry 95 Oxygen Delivery Me thod Room Air Labs Labs: Laboratory Results - last 24 hr 12/13/21 12/13/21 12/13/21 13:49 14:00 14:00 WBC 21.78 H RBC 4.02 Hgb 12.9 Hct 38.1 MCV 95 MCH 32 MCHC 34 RDW Coeff of Kathleen 15.0 Plt Count 237 Neut % (Auto) 89.5 H Lymph % (Auto) 1.9 L [place] % (Auto) 8.1 Eos % (Auto) 0.0 Baso % (Auto) 0.0 Neut # (Auto) 19.50 H Lymph # (Auto) 0.40 L [place] # (Auto) 1.80 H Eos # (Auto) 0.00 Baso # (Auto) 0.00 Abs Immat Gran (auto) 0.11 INR APTT VBG pH VBG pCO2 VBG pO2 VBG HCO3 Sodium Cancelled Potassium Cancelled Chloride Cancelled Carbon Dioxide Cancelled BUN Cancelled Creatinine Cancelled Estimated Creat Clear Cancelled Estimated GFR Cancelled Glucose Cancelled Lactate Venous Lactic Acid (Serial Order) Calcium Cancelled Phosphorus Magnesium Total Bilirubin Direct Bilirubin GGT AST ALT Alkaline Phosphatase Total Creatine Kinase Cancelled Troponin I C-Reactive Protein NT-Pro-B Natriuret Pep Total Protein Albumin Triglycerides Cholesterol LDL Cholesterol, Calc HDL Cholesterol Amylase Cancelled TSH Ethyl Alcohol SARS-CoV-2 (PCR) 12/13/21 12/13/21 12/13/21 14:00 14:00 14:00 WBC RBC Hgb Hct MCV MCH MCHC RDW Coeff of Kathleen Plt Count Neut % (Auto) Lymph % (Auto) [place] % (Auto) Eos % (Auto) Baso % (Auto) Neut # (Auto) Lymph # (Auto) [place] # (Auto) Eos # (Auto) Baso # (Auto) Abs Immat Gran (auto) INR 1.47 H APTT 36 H VBG pH 7.343 VBG pCO2 41 VBG pO2 59.8 H VBG HCO3 23 Sodium 136 Potassium 3.9 Chloride 101 Carbon Dioxide 21 BUN 42 H Creatinine 0.8 Estimated Creat Clear Estimated GFR 74 Glucose 147 H Lactate Venous Lactic Acid (Serial Order) Calcium 8.9 Phosphorus Magnesium Total Bilirubin 1.1 Direct Bilirubin 0.7 H GGT AST 87 H ALT 71 H Alkaline Phosphatase 145 Total Creatine Kinase 479 H Troponin I 0.02 C-Reactive Protein 5.4 H NT-Pro-B Natriuret Pep 2740 H Total Protein 7.9 Albumin 3.9 Triglycerides Cholesterol LDL Cholesterol, Calc HDL Cholesterol Amylase 61 TSH Ethyl Alcohol < 0.01 L SARS-CoV-2 (PCR) 12/13/21 12/13/21 12/14/21 14:00 14:25 06:12 WBC 15.59 H RBC 3.32 L Hgb 10.6 L Hct 31.3 L MCV 94 MCH 32 MCHC 34 RDW Coeff of Kathleen 15.5 Plt Count 191 Neut % (Auto) 85.8 H Lymph % (Auto) 4.2 L [place] % (Auto) 9.5 Eos % (Auto) 0.1 Baso % (Auto) 0.1 Neut # (Auto) 13.40 H Lymph # (Auto) 0.70 L [place] # (Auto) 1.50 H Eos # (Auto) 0.00 Baso # (Auto) 0.00 Abs Immat Gran (auto) 0.04 INR APTT VBG pH VBG pCO2 VBG pO2 VBG HCO3 Sodium Potassium Chloride Carbon Dioxide BUN Creatinine Estimated Creat Clear Estimated GFR Glucose Lactate Venous Lactic Acid (Serial Order) Calcium Phosphorus Magnesium Total Bilirubin Direct Bilirubin GGT AST ALT Alkaline Phosphatase Total Creatine Kinase Cancelled Troponin I C-Reactive Protein NT-Pro-B Natriuret Pep Total Protein Albumin Triglycerides Cholesterol LDL Cholesterol, Calc HDL Cholesterol Amylase TSH Ethyl Alcohol SARS-CoV-2 (PCR) Negative SARS-CoV-2 12/14/21 12/14/21 12/14/21 06:12 06:12 06:12 WBC RBC Hgb Hct MCV MCH MCHC RDW Coeff of Kathleen Plt Count Neut % (Auto) Lymph % (Auto) [place] % (Auto) Eos % (Auto) Baso % (Auto) Neut # (Auto) Lymph # (Auto) [place] # (Auto) Eos # (Auto) Baso # (Auto) Abs Immat Gran (auto) INR 1.17 H APTT VBG pH 7.437 H VBG pCO2 36 L VBG pO2 79.7 H VBG HCO3 24 Sodium 133 L Potassium 3.5 L Chloride 105 Carbon Dioxide 23 BUN 31 H Creatinine 0.8 Estimated Creat Clear 38.75 Estimated GFR 74 Glucose 129 H Lactate 0.8 Venous Lactic Acid (Serial Order) Calcium 7.7 L Phosphorus 2.1 L Magnesium 2.1 Total Bilirubin 0.6 Direct Bilirubin 0.3 GGT 51 AST 83 H ALT 51 H Alkaline Phosphatase 89 Total Creatine Kinase 206 H Troponin I 0.07 H* C-Reactive Protein NT-Pro-B Natriuret Pep 3080 H Total Protein 5.8 L Albumin 2.7 L Triglycerides 88 Cholesterol 163 LDL Cholesterol, Calc 108 H HDL Cholesterol 37 L Amylase TSH Ethyl Alcohol SARS-CoV-2 (PCR) 12/14/21 06:12 WBC RBC Hgb Hct MCV MCH MCHC RDW Coeff of Kathleen Plt Count Neut % (Auto) Lymph % (Auto) [place] % (Auto) Eos % (Auto) Baso % (Auto) Neut # (Auto) Lymph # (Auto) [place] # (Auto) Eos # (Auto) Baso # (Auto) Abs Immat Gran (auto) INR APTT VBG pH VBG pCO2 VBG pO2 VBG HCO3 Sodium Potassium Chloride Carbon Dioxide BUN Creatinine Estimated Creat Clear Estimated GFR Glucose Lactate Venous Lactic Acid (Serial Order) Calcium Phosphorus Magnesium Total Bilirubin Direct Bilirubin GGT AST ALT Alkaline Phosphatase Total Creatine Kinase Troponin I C-Reactive Protein NT-Pro-B Natriuret Pep Total Protein Albumin Triglycerides Cholesterol LDL Cholesterol, Calc HDL Cholesterol Amylase TSH 0.777 Ethyl Alcohol SARS-CoV-2 (PCR)
[2021-12-14 10:43] LABS: WBC Urine 0-2 (0-5)
[2021-12-14 10:44] LABS: Amorphous Sediment Urine Moderate; Bacteria Urine Moderate
--- NOTE | 2021-12-14 10:45 | CRLHL7_ITS ---
For Patients: As a result of the Cures Act, medical imaging exams and procedure reports are released immediately into your electronic medical record. You may view this report before your referring provider. If you have questions, please contact your health care provider. INDICATION: Sepsis. TECHNIQUE: Chest 1 views. COMPARISON: None. FINDINGS: Lungs: Coarse interstitial markings suggest chronic changes. No focal consolidation. Pleura: Small left pleural effusion. Heart and Mediastinum: The cardiomediastinal silhouette is normal. The vessels are unremarkable. Bones: Unremarkable. IMPRESSION: Small left pleural effusion. Dictated by Keagan Delgado MD @ 12/14/2021 11:16:52 AM (Electronically Signed)
--- NOTE | 2021-12-14 10:57 | REH.PT ---
Pt moving to CCU advised writer technical publications to hold PT at this time. Will recheck status tomorrow.
[2021-12-14] MEDS: POTASSIUM CHLORIDE 10 MEQ/100 ML PIGGYBACK 100 MEQ IVPB ×2 (10:59→12:13)
[2021-12-14] MEDS: FUROSEMIDE 10 MG/ML inj 40 MG IVP (10:59)
[2021-12-14] MEDS: 0.9 % SODIUM CHLORIDE 1000 ml 1,000 ML 100 ML IV ×2 (11:34→20:47)
[2021-12-14] MEDS: PANTOPRAZOLE SODIUM 40 MG INJ IVP (11:36)
[2021-12-14 12:18] LABS: PCR FLU A Negative PCR FLU A (Negative); PCR FLU B Negative PCR FLU B (Negative); PCR RSV Negative PCR RSV (Negative)
[2021-12-14 12:19] LABS: SARS PCR* Negative SARS-CoV-2 (Negative)
--- NOTE | 2021-12-14 13:00 | PC.NURSE ---
orthostatic blood pressure not done as patient is too weak to participate and just woke up at noon today. Is visiting with the daughters at bedside.
[2021-12-14 13:23] LABS: C Reactive Protein* 8.9 mg/dL (0.5-1.0)
[2021-12-14 13:42] LABS: Troponin I* 0.08 ng/mL (0.01-0.04)
--- NOTE | 2021-12-14 14:42 | PC.NURSE ---
Pt transferred from room 245 to CCU status for sepsis/AMS (CCU-3) at 10:55 am. Pt unresponsive and on 2L/NC. Please see frequent VS and eMar for medications administered. Assumed care of this patient from Maryse Miguel RN, pt settled per Paulo Tompkins RN w/assist of Herminia Pham RN and myself. Dtr Supriya updated and present in room. Pt received IV Lasix 40 mg and first of KCL 10 mEQ IV infusions. Second IV site started #20 R hand by Paulo BEY. IVF NS @ 100cc/hr initiated, pt also received IV Protonix 40 mg and IV Zosyn per the 2nd IV site. Portable CXR completed. Second Potassium 10mEq infused w/o difficulty to left IV site. COVID swab, influenza A& B and RSV obtained, all serology results negative. Troponin repeated 0.08 and CRP noted to be 8.9, Herminia Pham RN notified Dr. Heaton of these elevated lab values. Pt became more awake after #16 Garza catheter inserted and she couldn't remember what had happened earlier in the shift. Pt's dtr (POA) Luciana updated on lab results and plan of care for her mother at bedside. Echocardiogram completed. Pt sleeping on the left side, RR normal, sats maintained on room air at this time. Tele indicates NSR w/o ectopy. Orthostatic bps deferred d/to pt's weakness and AMS this am. Tolerated 75% of her lunch tray and 1000cc drained from garza catheter (450cc from initial insertion and 550cc @ 1400). Report to oncoming shift.
--- NOTE | 2021-12-14 15:28 | PC.NURSE ---
Pt. lethargic and difficult to arouse, woke w/sternal rub. Tachypneic w/RR 28, O2 sats 89% MD notified in to see pt. at bedside. 2L NC placed, family at bedside. Straight cath for UA. transferred to CCU at 1050.
--- NOTE | 2021-12-14 18:14 | PC.NURSE ---
Pt. drowsy, lethargic. Continuous visitors presented throughout the afternoon/evening, pt. able to carry on meaningful conversations. O2 sats mid 90s on RA. RR 18-20. Lung sounds coarse throughout. Afebrile. Denies pain.
[2021-12-14] MEDS: ENOXAPARIN 40 MG/0.4 ML INJ SUBCUT (20:47)
[2021-12-15] VITALS (11 sets, daily range): BP systolic 125–178; BP diastolic 56–78; PULSE 66–82; RESP 18–48; TEMP 36.7–37.9; O2SAT 93–96
[2021-12-15] MEDS: ACETAMINOPHEN 325 MG TABLET 650 MG PO ×3 (01:22→18:21)
[2021-12-15] MEDS: PIPERACILLIN/TAZOBACTAM 3.375 GM in 0.9 % SODIUM CHLORIDE Mini-bag 100 ML IVPB ×3 (04:49→17:06)
--- NOTE | 2021-12-15 05:15 | PC.NURSE ---
Positive blood culture called to [facility]
--- NOTE | 2021-12-15 06:52 | PC.NURSE ---
Alert and pleasantly confused. Needs reminders for orientation. Vitals stable. On room air. Afebrile. Slept late around 0100 because she wanted to go home. Reoriented and repositioned to help with back pain. Tylenol also administered for pain. Valladares intact and patent. Abx administered as per orders. No further concerns noted
[2021-12-15 07:08] LABS: HCO3 VBG 27 mmol/L (21-28); Ionized Calcium* 1.02 mmol/L (1.11-1.30); Lactate* 0.8 mmol/L (0.5-1.9); PCO2 VBG 43 mmHG (40-50); PO2 VBG 49.4 mmHG (25-47); pH VBG 7.403 (7.32-7.43)
[2021-12-15 07:12] LABS: Hematocrit 30.6 % (33.0-51.0); Hemoglobin* 10.4 gm/dL (12.0-16.0); Mean Corpuscular HGB Conc 34 gm/dL (32-36); Mean Corpuscular Hemoglobin 32 pg (26-34); Mean Corpuscular Volume 93 fL (80-100); Platelet Count* 172 K/uL (140-440); Red Blood Count 3.28 m/uL (4.00-5.20); White Blood Count* 11.34 K/uL (4.50-11.00)
[2021-12-15 07:13] LABS: Slide Review Reflex No
[2021-12-15 07:34] LABS: INR 1.26 (0.91-1.10); Prothrombin Time 16.2 Seconds
[2021-12-15 07:40] LABS: Albumin* 2.3 g/dL (3.3-5.0); Chloride* 102 mmol/L (96-114); Sodium* 133 mmol/L (135-149)
[2021-12-15 07:43] LABS: Alkaline Phosphatase* 106 U/L (40-150); Aspartate Amino Transferase* 85 U/L (12-35); Bilirubin Total* 0.7 mg/dL (0.1-1.5); Carbon Dioxide* 25 mmol/L (20-32); Creatinine* 0.8 mg/dL (0.5-1.5); Est. Creatinine Clearance* 38.75; Estimated Glomerular Filt Rate 74 ml/min; Total Protein* 5.1 g/dL (6.0-8.3)
[2021-12-15 07:44] LABS: Alanine Aminotransferase* 58 U/L (4-35); Blood Urea Nitrogen* 18 mg/dL (7-30); Calcium* 6.9 mg/dL (8.4-10.6); Gamma Glutamyl Transpeptidase* 145 U/L (8-55); Glucose* 101 mg/dL (60-115); Lipase* 75 U/L (23-300); Magnesium* 1.8 mg/dL (1.5-2.6)
[2021-12-15 07:52] LABS: NT Pro B Type NatriureticPept* 2860 PG/mL (0-450)
[2021-12-15 07:53] LABS: Potassium* 2.7 mmol/L (3.6-5.1)
[2021-12-15 07:59] LABS: Troponin I* 0.12 ng/mL (0.01-0.04)
[2021-12-15 08:14] LABS: Creatine Kinase* 73 U/L (41-117)
--- NOTE | 2021-12-15 08:14 | CRLHL7_ITS ---
For Patients: As a result of the Century Cures Act, medical imaging exams and procedure reports are released immediately into your electronic medical record. You may view this report before your referring provider. If you have questions, please contact your health care provider. Indication: LT CLAVICULAR/SHOULDER PAIN Technique: Two views left clavicle Comparison: None Findings: No fracture is present. Scarring at the right lung apex. Vascular calcifications. Chronic degenerative cystic changes at the left humeral head at the greater tuberosity. Mild spurring at the AC joint. Left lung apex clear. Impression: Intact left clavicle without fracture or destructive osseous lesion. Dictated by Dalton Ramirez MD @ 12/15/2021 10:42:49 AM (Electronically Signed)
[2021-12-15] MEDS: POTASSIUM CHLORIDE 10 MEQ/100 ML PIGGYBACK 100 MEQ IVPB ×3 (08:41→11:11)
--- NOTE | 2021-12-15 09:41 | P.IMPN_ITS ---
Progress Note: A&P Assessment and plan (1) Rhabdomyolysis: Status: Acute Assessment and Plan: Improving with normal CK today. (2) Gram-positive bacteremia: Status: Acute Assessment and Plan: Continue to follow blood cultures until negative. Continue vancomycin and Zosyn. (3) Abnormal liver function tests: Status: Acute Assessment and Plan: Presumably related to recent fall and acute illness. Continue to follow. (4) Rheumatoid arthritis, seropositive: Status: Acute (5) Sciatica: Status: Acute Assessment and Plan: Appreciate input from PT. Trial of Lidocaine patch. (6) Weakness: Status: Acute Assessment and Plan: Appreciate input from PT and OT; will likely require SNF placement on discharge. (7) Hypokalemia: Status: Acute Assessment and Plan: Replace, continue to follow. (8) Normocytic anemia: Status: Acute Assessment and Plan: No evidence of acute bleeding, continue to follow. (9) Elevated troponin: Status: Acute Assessment and Plan: Patient denies chest pain. Echo findings per above. Plan 81-year-old female admitted after fall at home, down for 3 days, problem list per above. Lovenox for prophylaxis. Dispo: See above; appreciate input from PT, OT, and social work. Daughters updated at bedside, questions answered. Time Spent With Patient Total time spent: 45, > 50% in chart review and coordination Subjective Date Seen: 12/15/21 Interval history: Lori continues to have intermittent confusion, but symptoms are improved from admission. Her primary complaint is pain in her right lateral hip region, somewhat different than her known right-sided sciatica. She had been treated with steroids for her sciatica just prior to admission; she did not complete the course of steroids as prescribed (had 2 days of steroids left when she fell at home). Specifically denies chest pain or dyspnea, continues to have intermittent L shoulder pain. Dedicated clavicular x-ray negative for acute fx. TTE was completed on 12/14 with the below findings: 1. Normal left ventricular size, mildly increased wall thickness, hyperdynamic global systolic function, calculated EF of 78 %. 2. Grade 1 pattern of LV diastolic filling. 3. The aortic valve is trileaflet and sclerotic, no stenosis and no re gurgitation. 4. The mitral valve is sclerotic, mild mitral regurgitation. 5. Mildly increased estimated pulmonary pressures by tricuspid regurgitation velocity and right atrial pressure (32 mmHg plus RAP). Exam Narrative: Exam Narrative: GEN: Laying comfortably in bed. She is alert, intermittently requires redirection HEENT: Normal external ears, EOMIs bilaterally, no scleral icterus CV: RRR, No concerning murmurs, rubs, or gallops R: LCTA bilaterally without concerning wheezing, rales, or rhonchi, air movement adequate Ext: wwp, no concerning edema. Tenderness over left clavicle without any obvious deformity Skin: Abrasions to bilateral upper extremities, unchanged from admission Const: Vital Signs, click to edit/add: Vital Signs - 24 hr 12/14/21 10:57 12/14/21 10:39 12/14/21 11:44 Temperature 98.0 F Pulse Rate Pulse Rate [Right Radial] 74 Respiratory Rate 28 H 28 H 26 H Blood Pressure [Ri ght Arm] 122/58 L Pulse Oximetry 96 96 96 Oxygen Delivery Me thod Room Air Nasal Cannula Nasal Cannula Oxygen Flow Rate 2 Fraction of Inspir ed Oxygen 2 12/14/21 12:50 12/14/21 13:00 12/14/21 11:00 Temperature 97.1 F L Pulse Rate 70 Pulse Rate [Right Radial] 71 Respiratory Rate 28 H Blood Pressure [Ri ght Arm] 120/61 Pulse Oximetry 96 96 Oxygen Delivery Me thod Room Air Nasal Cannula Oxygen Flow Rate 2 Fraction of Inspir ed Oxygen 12/14/21 11:07 12/14/21 12:00 12/14/21 12:30 Temperature Pulse Rate Pulse Rate [Right Radial] 70 70 69 Respiratory Rate 24 22 22 Blood Pressure [Ri ght Arm] 120/62 128/60 108/58 L Pulse Oximetry 97 97 97 Oxygen Delivery Me thod Nasal Cannula Room Air Room Air Oxygen Flow Rate 2 Fraction of Inspir ed Oxygen 12/14/21 13:00 12/14/21 13:30 12/14/21 14:00 Temperature 97.5 F L Pulse Rate Pulse Rate [Right Radial] 76 83 80 Respiratory Rate 20 20 20 Blood Pressure [Ri ght Arm] 114/62 107/51 L 98/63 Pulse Oximetry 97 98 96 Oxygen Delivery Me thod Room Air Room Air Room Air Oxygen Flow Rate Fraction of Inspir ed Oxygen 12/14/21 16:31 12/14/21 15:49 12/14/21 16:00 Temperature 98.2 F Pulse Rate 76 Pulse Rate [Right Radial] 80 73 Respiratory Rate 20 Blood Pressure [Ri ght Arm] 91/49 L 97/47 L Pulse Oximetry 96 Oxygen Delivery Me thod Room Air Oxygen Flow Rate Fraction of Inspir ed Oxygen 12/14/21 17:00 12/14/21 18:00 12/14/21 21:13 Temperature 98.2 F Pulse Rate Pulse Rate [Right Radial] 75 74 79 Respiratory Rate 20 Blood Pressure [Ri ght Arm] 105/54 L 111/56 L 122/64 Pulse Oximetry 94 Oxygen Delivery Me thod Room Air Oxygen Flow Rate Fraction of Inspir ed Oxygen 12/14/21 22:51 12/14/21 22:54 12/15/21 02:00 Temperature 98.2 F Pulse Rate 73 Pulse Rate [Right Radial] 83 70 Respiratory Rate 20 Blood Pressure [Ri ght Arm] 147/61 H Pulse Oximetry 94 Oxygen Delivery Me thod Room Air Oxygen Flow Rate Fraction of Inspir ed Oxygen 12/15/21 05:30 Temperature 98.2 F Pulse Rate Pulse Rate [Right Radial] 70 Respiratory Rate 20 Blood Pressure [Ri ght Arm] 147/61 H Pulse Oximetry 94 Oxygen Delivery Me thod Room Air Oxygen Flow Rate 2 Fraction of Inspir ed Oxygen 2 Labs Labs: Laboratory Results - last 24 hr 12/13/21 12/14/21 12/14/21 10:00 06:12 10:48 WBC RBC Hgb Hct MCV MCH MCHC Plt Count INR VBG pH VBG pCO2 VBG pO2 VBG HCO3 Sodium Potassium Chloride Carbon Dioxide BUN Creatinine Estimated Creat Clear Estimated GFR Glucose Lactate Calcium Ionized Calcium Leatha Magnesium Total Bilirubin GGT AST ALT Alkaline Phosphatase Total Creatine Kinase Troponin I C-Reactive Protein 8.9 H NT-Pro-B Natriuret Pep Total Protein Albumin Lipase Urine Color Yellow Urine Appearance Slightly Cloudy A Urine pH 6.0 Ur Specific Springer 1.025 Urine Protein 2+ A Urine Glucose (UA) Negative Urine Ketones Trace A Urine Blood 2+ A Urine Nitrite Negative Urine Bilirubin Negative Urine Urobilinogen 1.0 Ur Leukocyte Esterase Negative Urine RBC 2-5 A Urine WBC 0-2 Ur Squamous Epith Cells None Amorphous Sediment Moderate A Urine Bacteria Moderate A SARS-CoV-2 (PCR) Negative SARS-CoV-2 Influenza Type A (PCR) Negative PCR FLU A Influenza Type B (PCR) Negative PCR FLU B RSV (PCR) Negative PCR RSV 12/14/21 12/15/21 12/15/21 12:57 06:44 06:44 WBC 11.34 H RBC 3.28 L Hgb 10.4 L Hct 30.6 L MCV 93 MCH 32 MCHC 34 Plt Count 172 INR 1.26 H VBG pH VBG pCO2 VBG pO2 VBG HCO3 Sodium Potassium Chloride Carbon Dioxide BUN Creatinine Estimated Creat Clear Estimated GFR Glucose Lactate Calcium Ionized Calcium Leatha Magnesium Total Bilirubin GGT AST ALT Alkaline Phosphatase Total Creatine Kinase Troponin I 0.08 H* C-Reactive Protein NT-Pro-B Natriuret Pep Total Protein Albumin Lipase Urine Color Urine Appearance Urine pH Ur Specific Springer Urine Protein Urine Glucose (UA) Urine Ketones Urine Blood Urine Nitrite Urine Bilirubin Urine Urobilinogen Ur Leukocyte Esterase Urine RBC Urine WBC Ur Squamous Epith Cells Amorphous Sediment Urine Bacteria SARS-CoV-2 (PCR) Influenza Type A (PCR) Influenza Type B (PCR) RSV (PCR) 12/15/21 12/15/21 06:44 06:44 WBC RBC Hgb Hct MCV MCH MCHC Plt Count INR VBG pH 7.403 VBG pCO2 43 VBG pO2 49.4 H VBG HCO3 27 Sodium 133 L Potassium 2.7 L* Chloride 102 Carbon Dioxide 25 BUN 18 Creatinine 0.8 Estimated Creat Clear 38.75 Estimated GFR 74 Glucose 101 Lactate 0.8 Calcium 6.9 L Ionized Calcium Leatha 1.02 L Magnesium 1.8 Total Bilirubin 0.7 GGT 145 H AST 85 H ALT 58 H Alkaline Phosphatase 106 Total Creatine Kinase 73 Troponin I 0.12 H* C-Reactive Protein 17.0 H NT-Pro-B Natriuret Pep 2860 H Total Protein 5.1 L Albumin 2.3 L Lipase 75 Urine Color Urine Appearance Urine pH Ur Specific Springer Urine Protein Urine Glucose (UA) Urine Ketones Urine Blood Urine Nitrite Urine Bilirubin Urine Urobilinogen Ur Leukocyte Esterase Urine RBC Urine WBC Ur Squamous Epith Cells Amorphous Sediment Urine Bacteria SARS-CoV-2 (PCR) Influenza Type A (PCR) Influenza Type B (PCR) RSV (PCR)
[2021-12-15] MEDS: LIDOCAINE 5% PATCH 1 PATCH TRANSDERMA (09:55)
--- NOTE | 2021-12-15 11:05 | PC.SOCIAL ---
Met with pt. and daughters to discuss discharge plans. Pt. will need short-term rehab at discharge and prefer [facility]. [facility] has a bed and is assessing.
[2021-12-15] MEDS: 0.9 % SODIUM CHLORIDE 1000 ml 1,000 ML 100 ML IV ×2 (12:29→22:51)
[2021-12-15 14:56] LABS: Potassium* 3.1 mmol/L (3.6-5.1)
--- NOTE | 2021-12-15 15:12 | PC.NURSE ---
Pt evaluated by Dr. Mayorga, PT, OT and myself on day shift. Dtrs Luciana and Supriya updated on pt's new lab values and plan of care by hospitalist. Blood cultures repeated times two. Clavicle of left X-ray completed at bedside. Pt had a total of 3 IVPB potassium bumps, IV Zosyn and one IVPB of Calcium Gluconate. Please see Medication record for other meds given with sips of water. Pt received prn tylenol for her chronic Right Lower Back pain secondary to sciatica. New order for Lidoderm patch to Right Lower Back initiated. Rivastigmine patch not available from pharmacy. RN was able to obtain a set of orthostatic BPs during therapy session. Lying BP 133/66 HR 71 Sats 94%, Sitting 132/58 HR 76 Sats 93%, Standing 118/88 HR 75 w/sats 95%. Pt remains weak and was returned to bed after therapy. Rested aromatherapy patch allowed pt to rest this shift. Hourly checks. Report to oncoming shift. Troponin 0.08 is trending down.
[2021-12-15 15:21] LABS: Troponin I* 0.08 ng/mL (0.01-0.04)
--- NOTE | 2021-12-15 15:22 | PC.NURSE ---
Tele indicates NSR on this patient w/o ectopy noted.
--- NOTE | 2021-12-15 15:36 | PC.NURSE ---
Critical troponin 0.08 called from lab at shift change, results shared with Dr. Lewis who also reviewed orthostatic bps taken during therapy session.
--- NOTE | 2021-12-15 17:27 | PC.NURSE ---
PATIENT PLEASANT AND COOPERATIVE, [facility], FAMILY AT BEDSIDE, POOR APPETITE BUT WILLING TO TRY SOME SOUP FOR DINNER, TURN AND REPO, NEFF CATH DRAINING, DECLINING PAIN.
[2021-12-15] MEDS: ENOXAPARIN 40 MG/0.4 ML INJ SUBCUT (20:32)
--- NOTE | 2021-12-15 21:19 | CRLHL7_ITS ---
For Patients: As a result of the Cures Act, medical imaging exams and procedure reports are released immediately into your electronic medical record. You may view this report before your referring provider. If you have questions, please contact your health care provider. INDICATION: Tachypnea. Fever. COMPARISON: 14 December 2021. FINDINGS: Small left dependent pleural effusion and left base airspace opacity similar to comparison. Pulmonary vascularity is normal. No new focal airspace opacity. Dictated by Scott Hernandez MD @ 12/15/2021 9:58:25 PM (Electronically Signed)
[2021-12-15 21:46] LABS: HCO3 VBG 24 mmol/L (21-28); PCO2 VBG 33 mmHG (40-50); PO2 VBG 54.7 mmHG (25-47); pH VBG 7.478 (7.32-7.43)
[2021-12-15 21:57] LABS: Lactate* 2.2 mmol/L (0.5-1.9)
--- NOTE | 2021-12-15 22:06 | W.PM.CROSSCO ---
Subjective Subjective Time Seen by Provider: 21:00 Date Seen: 12/15/21 Principal diagnosis: T 100.2, RR 40 Interval history: Nurse notified me of change in patient vitals. Patient indicates she generally feels well. Has right iliac crest pain, not new. She has no chest heaviness, pressure, tightness, or pain. Denies cough or dyspnea. Denies pre-syncope, near syncope, or syncope. Denies palpitations, nausea, vomiting, or abdominal pain. Objective Objective Data Details: Vitals are reviewed. T 100.2, RR 40 bpm at rest and semi-recumbent. Pulse 80 bpm, regular. SBP 150 mmHg. No acute distress. Appears comfortable. Talkative. Articulate. Alert, oriented to self, place; re-orientable to time and situation. No focal motor deficits, except chronic decreased hearing bilaterally. Lungs are for the most part clear, except fine, end-inspiratory rales right > left bases. Heart tones with regular rhythm, normal S1S2. Abdomen with active bowels sounds, soft, non-tender. Extremities without edema. No peripheral edema. Capillary refill < 3 seconds. No cyanosis, petechia, or rashes. ECG: NSR. No acute ST segment changes. Portable CXR (my interpretation) is essentially unchanged from earlier today. Poor inspiratory effort. LLL small pleural effusion. Venous pH 7.48, pCO2 33 mmHg. Lactate 2.2. Tro-I and D-Dimer are pending. I nikunj another blood culture. Initial blood culture grew out G+ cocci (organism not specified) pham-sensitive. I reviewed the transthoracic ECHO report. Assessment and Plan Assessment and plan (1) Hyperventilation: Status: Acute (2) Respiratory alkalosis: Status: Acute (3) Lactic acidosis: Status: Acute (4) Pulmonary atelectasis: Status: Acute (5) Gram-positive bacteremia: Status: Acute (6) Cognitive impairment: Status: Acute (7) Hypertensive heart disease with biventricular congestive heart failure: Status: Acute Plan 1. NS IVF bolus. 2. Recheck lactate level. 3. If persistent, consider chest CT with PE protocol - on enoxaparin 40 mg subcut qHS for VTE prophylaxis already. 4. Recheck labs in AM, including repeat NT pro-BNP. 5. Daily weight. 6. Consider furosemide diuresis. 7. Await organism ID. Stop IV Zosyn and Vanco. Start IV cefazolin.
[2021-12-15 22:16] LABS: D Dimer Quantitative* 4.81 ug/ml (0.00-0.50)
[2021-12-15 22:26] LABS: Lactate* 1.9 mmol/L (0.5-1.9)
[2021-12-15 22:30] LABS: Troponin I* 0.07 ng/mL (0.01-0.04)
[2021-12-15] MEDS: 0.9 % SODIUM CHLORIDE 1000 ml 1,000 ML IV (22:51)
[2021-12-16] VITALS (9 sets, daily range): BP systolic 121–190; BP diastolic 54–76; PULSE 69–78; RESP 18–40; TEMP 35.9–38; O2SAT 91–98
[2021-12-16] MEDS: CEFAZOLIN 2 GM in 0.9 % SODIUM CHLORIDE Mini-bag 100 ML IVPB ×3 (00:23→16:27)
--- NOTE | 2021-12-16 03:58 | PC.NURSE ---
Addendum entered by Kyrie Hdz RN 12/16/21 06:44: Then c/o lower back pain warm gel pad tucked under Addendum entered by Kyrie Hdz RN 12/16/21 06:36: Tylenol given for right hip pain when up to scale Addendum entered by Kyrie Hdz RN 12/16/21 04:26: Tele NSR Original Note: Temp 100.2 gave Tylenol. RR 48 w/slight end expiratory wheeze to left base, provided IS used to 500, has not required O2 w/sats remaining >90%. Dr. Lewis was notified and orders given for labs, 12 lead, PCXR and 1L NS bolus. Dr. Lewis notified of previous blood culture sensitivity results and antibiotic orders were changed which was then run late d/t pharmacy problems and subsequent doses were retimed. Temp resolved by 0300. Has denied pain. Has a couple of abrasions to left forearm and thigh. The distal abrasion on the left forearm seems to be associated with an area of redness. Pt was initially very confused and wanted to go to her room etc needing multiple episodes of reorientation and is very much not aware of situation. Was up to BR tolerated ambulation well and over the course of about 1.5 hours had a smear of BM. Pt was however independent w/cares using minimal cueing. Valladares draining clear lt yasmany urine lightening some towards morning.
[2021-12-16] MEDS: ACETAMINOPHEN 325 MG TABLET 650 MG PO ×2 (06:24→16:45)
[2021-12-16 07:32] LABS: HCO3 VBG 27 mmol/L (21-28); Lactate* 1.2 mmol/L (0.5-1.9); PCO2 VBG 38 mmHG (40-50); PO2 VBG 40.4 mmHG (25-47); pH VBG 7.458 (7.32-7.43)
[2021-12-16 07:35] LABS: Basophils Percent Auto 0.1 % (0.0-3.0); Hemoglobin* 10.2 gm/dL (12.0-16.0); Immature Granulocytes Abs Auto 0.14 K/uL (0.00-0.30); Lymphocytes Percent Auto 8.5 % (20-44); Mean Corpuscular HGB Conc 34 gm/dL (32-36); Mean Corpuscular Hemoglobin 32 pg (26-34); Mean Corpuscular Volume 93 fL (80-100); Monocytes Percent Auto 10.1 % (0.0-11.0); Neutrophils Percent Auto 79.1 % (42.0-72.0); Platelet Count* 195 K/uL (140-440); RDW Coefficient of Variation % 15.2 % (11.5-15.5); Red Blood Count 3.24 m/uL (4.00-5.20); White Blood Count* 11.79 K/uL (4.50-11.00)
[2021-12-16 07:55] LABS: Slide Review Reflex No
[2021-12-16 08:02] LABS: Blood Urea Nitrogen* 8 mg/dL (7-30); Carbon Dioxide* 27 mmol/L (20-32); Creatinine* 0.6 mg/dL (0.5-1.5); Est. Creatinine Clearance* 38.75; Estimated Glomerular Filt Rate 91 ml/min
[2021-12-16 08:03] LABS: Calcium* 7.1 mg/dL (8.4-10.6); Glucose* 111 mg/dL (60-115); Phosphorus* 1.4 mg/dL (2.5-4.5)
[2021-12-16 08:05] LABS: NT Pro B Type NatriureticPept* 3500 PG/mL (0-450)
[2021-12-16 08:08] LABS: Troponin I* 0.05 ng/mL (0.01-0.04)
[2021-12-16 08:13] LABS: Procalcitonin* 1.84 ng/mL (<0.50)
[2021-12-16 08:16] LABS: C Reactive Protein* 16.3 mg/dL (0.5-1.0)
[2021-12-16 08:18] LABS: Potassium* 2.9 mmol/L (3.6-5.1); Sodium* 131 mmol/L (135-149)
[2021-12-16 08:19] LABS: Albumin* 2.2 g/dL (3.3-5.0); Chloride* 101 mmol/L (96-114)
[2021-12-16 08:23] LABS: D Dimer Quantitative* 4.73 ug/ml (0.00-0.50)
[2021-12-16] MEDS: POTASSIUM BICARB 25 MEQ EFFERVESCENT TAB PO ×5 (08:46→16:45)
--- NOTE | 2021-12-16 09:30 | CRLHL7_ITS ---
For Patients: As a result of the Century Cures Act, medical imaging exams and procedure reports are released immediately into your electronic medical record. You may view this report before your referring provider. If you have questions, please contact your health care provider. INDICATION: Left facial droop. Technique Multiplanar multisequence noncontrast MR images acquired. Comparison CT brain 12/13/2021. Findings Prominence of the ventricles and sulci compatible mild to moderate diffuse cerebral volume loss. No mass effect or midline shift. Scattered T2 FLAIR hyperintensities in the supratentorial white matter, typical for mild chronic microvascular ischemic changes. Moderate chronic infarction right occipital lobe associated with ex vacuo dilatation of the right occipital horn. No diffusion restriction to suggest acute infarction. No recent intracranial hemorrhage or pathologic extra-axial fluid collection. The major arterial flow voids of the skullbase are preserved. The globes are symmetric. Mild right sphenoid sinus mucosal thickening. Trace bilateral mastoid effusions. Small osteoma projecting from the outer table of the right frontal calvarium. IMPRESSION: 1. No acute infarction, mass effect, or recent intracranial hemorrhage. 2. Moderate chronic infarction right occipital lobe. 3. Mild chronic microvascular ischemic changes and [id number] diffuse cerebral volume loss. Dictated by David Kennedy MD @ 12/16/2021 1:05:50 PM (Electronically Signed)
[2021-12-16 09:38] LABS: Alanine Aminotransferase* 48 U/L (4-35); Alkaline Phosphatase* 126 U/L (40-150); Aspartate Amino Transferase* 76 U/L (12-35); Bilirubin Direct* 0.3 mg/dL (0.0-0.5); Bilirubin Total* 0.4 mg/dL (0.1-1.5); Total Protein* 5.2 g/dL (6.0-8.3)
[2021-12-16] MEDS: LIDOCAINE 5% PATCH 1 PATCH TRANSDERMA (09:48)
[2021-12-16] MEDS: 0.9 % SODIUM CHLORIDE 1000 ml 1,000 ML 100 ML IV ×2 (10:22→22:51)
--- NOTE | 2021-12-16 10:28 | CRLHL7_ITS ---
For Patients: As a result of the Century Cures Act, medical imaging exams and procedure reports are released immediately into your electronic medical record. You may view this report before your referring provider. If you have questions, please contact your health care provider. INDICATION: Leg pain and swelling. TECHNIQUE: Ultrasound venous duplex lower right extremity. Compression venous exam was performed using schultz-scale, color Doppler, and spectral Doppler analysis. COMPARISON: None. FINDINGS: Deep veins: Sonographic imaging demonstrates the right common femoral, deep femoral, superficial femoral, popliteal, posterior tibial and the contralateral left common femoral veins to be fully compressible with normal color Doppler blood flow. Superficial veins: Greater saphenous vein is fully compressible. Soft tissues: No popliteal cyst. IMPRESSION: Normal right lower extremity venous ultrasound, no sign of deep venous thrombosis. Dictated by Keagan Delgado MD @ 12/16/2021 1:04:51 PM (Electronically Signed)
--- NOTE | 2021-12-16 11:33 | P.IMPN_ITS ---
Progress Note: A&P Assessment and plan (1) Gram-positive bacteremia: Problem details: Transitioned from Vancomycin and Zosyn to Ancef on 12/15 Status: Acute Assessment and Plan: Continue to follow blood cultures (+ for Gram positive cocci without formal identification), will discuss long-term plan with ID when organism is formally identified. (2) Rhabdomyolysis: Status: Acute Assessment and Plan: Significantly improved. (3) Hypertensive heart disease with biventricular congestive heart failure: Problem details: TTE was completed on 12/14 with the below findings: ?1. Normal left ventricular size, mildly increased wall thickness, hyperdynamic global systolic function, calculated EF of 78 %. ?2. Grade 1 pattern of LV diastolic filling. ?3. The aortic valve is trileaflet and sclerotic, no stenosis and no regurgita tion. ?4. The mitral valve is sclerotic, mild mitral regurgitation. ?5. Mildly increased estimated pulmonary pressures by tricuspid regurgitation velocity and right atrial pressure (32 mmHg plus RAP). Status: Acute Assessment and Plan: Patient's weight is up 2 kg at this time. Her rhabdomyolysis has significantly improved, and she is tolerating p.o. intake well. Given concern for fluid overload, will give 1 time dose of IV Lasix, continuing to watch potassium and fluid balance closely. (4) Hypokalemia: Status: Acute Assessment and Plan: Continue to replace with close monitoring. (5) Weakness: Status: Acute Assessment and Plan: Appreciate input from PT and OT. Patient will likely need SNF placement upon discharge for long-term rehab. Given findings, in addition to left-sided facial droop, will obtain MRI of brain today. (6) Pulmonary atelectasis: Status: Acute Assessment and Plan: Likely source of fever overnight. Patient is tolerating incentive spirometry. (7) Cognitive impairment: Status: Acute (8) Elevated troponin: Problem details: Peaked at 0.12, TTE performed 12/13 Status: Acute Plan Continue Ancef for bacteremia per above. MRI performed for left-sided facial droop and weakness; no acute findings, but chronic right occipital infarction noted. Lovenox for prophylaxis. Dispo: Will likely need SNF when medically stable, appreciate input from PT, OT, and social work. Time Spent With Patient Total time spent: 45, including chart review, coordination of care, and updating family at [facility]. Subjective Date Seen: 12/16/21 Interval history: Lori had a fever and intermittent tachypnea overnight; repeat cultures and chest x-ray obtained. Given 1 L normal saline bolus. Tolerating incentive spirometry. Weight is up 2 kilos from admission. She is starting to tolerate p.o. intake and is becoming more active with therapies. Noted to have right calf pain during OT today; ultrasound obtained and negative for DVT. Exam Narrative: Exam Narrative: GEN: Alert and appropriate, sitting comfortably in bedside chair in eating breakfast HEENT: Normal external ears, EOMIs bilaterally, no scleral icterus CV: RRR, No concerning murmurs, rubs, or gallops R: LCTA bilaterally without concerning wheezing, rales, or rhonchi Ext: wwp, no concerning edema Skin: Abrasions from admission on upper extremities are stable, no other concerning skin findings noted Neuro: Mild left-sided facial droop noted this morning (appears to have been present since admission, more notable now that patient is out of bed), no other focal abnormalities Psych: Appropriate Const: Vital Signs, click to edit/add: Vital Signs - 24 hr 12/15/21 12:00 12/15/21 15:00 12/15/21 15:00 Temperature 98.5 F Pulse Rate 79 Pulse Rate [Right Radial] 80 80 Respiratory Rate 20 18 Blood Pressure [Ri ght Arm] 125/78 Pulse Oximetry 94 Oxygen Delivery Me thod Room Air 12/15/21 16:00 12/15/21 19:58 12/15/21 23:00 Temperature 99.6 F 100.2 F H 98.1 F Pulse Rate Pulse Rate [Right Radial] 80 82 74 Respiratory Rate 18 48 H 44 H Blood Pressure [Ri ght Arm] 141/68 H 153/71 H 133/56 L Pulse Oximetry 95 96 93 Oxygen Delivery Me thod Room Air Room Air Room Air 12/15/21 23:26 12/15/21 23:32 12/16/21 03:35 Temperature 98.3 F Pulse Rate 77 Pulse Rate [Right Radial] 77 Respiratory Rate 44 H 40 H Blood Pressure [Ri ght Arm] 132/65 Pulse Oximetry 91 Oxygen Delivery Me thod Room Air Labs Labs: Laboratory Results - last 24 hr 12/15/21 12/15/21 12/15/21 14:15 14:15 21:32 WBC RBC Hgb Hct MCV MCH MCHC RDW Coeff of Kathleen Plt Count Neut % (Auto) Lymph % (Auto) [place] % (Auto) Eos % (Auto) Baso % (Auto) Neut # (Auto) Lymph # (Auto) [place] # (Auto) Eos # (Auto) Baso # (Auto) Abs Immat Gran (auto) D-Dimer Quant (PE/DVT) 4.81 H VBG pH VBG pCO2 VBG pO2 VBG HCO3 Sodium Potassium 3.1 L Chloride Carbon Dioxide BUN Creatinine Estimated Creat Clear Estimated GFR Glucose Lactate Calcium Phosphorus Total Bilirubin Direct Bilirubin AST ALT Alkaline Phosphatase Troponin I 0.08 H* C-Reactive Protein NT-Pro-B Natriuret Pep Total Protein Albumin Procalcitonin 12/15/21 12/15/21 12/15/21 21:32 21:32 22:20 WBC RBC Hgb Hct MCV MCH MCHC RDW Coeff of Kathleen Plt Count Neut % (Auto) Lymph % (Auto) [place] % (Auto) Eos % (Auto) Baso % (Auto) Neut # (Auto) Lymph # (Auto) [place] # (Auto) Eos # (Auto) Baso # (Auto) Abs Immat Gran (auto) D-Dimer Quant (PE/DVT) VBG pH 7.478 H VBG pCO2 33 L VBG pO2 54.7 H VBG HCO3 24 Sodium Potassium Chloride Carbon Dioxide BUN Creatinine Estimated Creat Clear Estimated GFR Glucose Lactate 2.2 H 1.9 Calcium Phosphorus Total Bilirubin Direct Bilirubin AST ALT Alkaline Phosphatase Troponin I 0.07 H* C-Reactive Protein NT-Pro-B Natriuret Pep Total Protein Albumin Procalcitonin 12/16/21 12/16/21 12/16/21 06:52 06:52 06:52 WBC 11.79 H RBC 3.24 L Hgb 10.2 L Hct 30.0 L MCV 93 MCH 32 MCHC 34 RDW Coeff of Kathleen 15.2 Plt Count 195 Neut % (Auto) 79.1 H Lymph % (Auto) 8.5 L [place] % (Auto) 10.1 Eos % (Auto) 1.0 Baso % (Auto) 0.1 Neut # (Auto) 9.30 H Lymph # (Auto) 1.00 [place] # (Auto) 1.20 H Eos # (Auto) 0.10 Baso # (Auto) 0.00 Abs Immat Gran (auto) 0.14 D-Dimer Quant (PE/DVT) 4.73 H VBG pH VBG pCO2 VBG pO2 VBG HCO3 Sodium 131 L Potassium 2.9 L* Chloride 101 Carbon Dioxide 27 BUN 8 Creatinine 0.6 Estimated Creat Clear 38.75 Estimated GFR 91 Glucose 111 Lactate Calcium 7.1 L Phosphorus 1.4 L Total Bilirubin 0.4 Direct Bilirubin 0.3 AST 76 H ALT 48 H Alkaline Phosphatase 126 Troponin I 0.05 H C-Reactive Protein 16.3 H NT-Pro-B Natriuret Pep 3500 H Total Protein 5.2 L Albumin 2.2 L Procalcitonin 1.84 H 12/16/21 06:52 WBC RBC Hgb Hct MCV MCH MCHC RDW Coeff of Kathleen Plt Count Neut % (Auto) Lymph % (Auto) [place] % (Auto) Eos % (Auto) Baso % (Auto) Neut # (Auto) Lymph # (Auto) [place] # (Auto) Eos # (Auto) Baso # (Auto) Abs Immat Gran (auto) D-Dimer Quant (PE/DVT) VBG pH 7.458 H VBG pCO2 38 L VBG pO2 40.4 VBG HCO3 27 Sodium Potassium Chloride Carbon Dioxide BUN Creatinine Estimated Creat Clear Estimated GFR Glucose Lactate 1.2 Calcium Phosphorus Total Bilirubin Direct Bilirubin AST ALT Alkaline Phosphatase Troponin I C-Reactive Protein NT-Pro-B Natriuret Pep Total Protein Albumin Procalcitonin
[2021-12-16] MEDS: FUROSEMIDE 10 MG/ML inj 20 MG IVP (12:46)
[2021-12-16] MEDS: POTASSIUM CHLORIDE 10 MEQ CAPSULE ER 20 MEQ PO ×2 (12:46→20:36)
[2021-12-16 15:43] LABS: Potassium* 3.5 mmol/L (3.6-5.1)
--- NOTE | 2021-12-16 18:45 | PC.NURSE ---
shift note: pt had temp 100.4 late this afternoon. pt up 1/walker to bed & chair and ambulated to bathroom with slow steady gait. pt states lower back pain 0/10 this afternoon. rt hip sore with unrated pain. Pt has 2 small abrasions to lt FA. IV patent. dc'd rt hand IV intact due to infiltrate. LS with LLQ fine crkls. sats cont @94-98%. Pt had MRI this a.m and tolerated well. bedside ultrasound done on rt l/e. PP+ bilat. Pt repetitive with statements regarding wanting to go home. Pt family at bedside supporting pt. Pt oriented to place, time and person. Pleasant demeanor and follows direction.
[2021-12-16] MEDS: ENOXAPARIN 40 MG/0.4 ML INJ SUBCUT (20:37)
[2021-12-17] VITALS (8 sets, daily range): BP systolic 150–181; BP diastolic 61–95; PULSE 69–76; RESP 18–32; TEMP 36.4–37.1; O2SAT 90–98
[2021-12-17] MEDS: CEFAZOLIN 2 GM in 0.9 % SODIUM CHLORIDE Mini-bag 100 ML IVPB ×3 (00:10→16:58)
[2021-12-17] MEDS: ACETAMINOPHEN 325 MG TABLET 650 MG PO (03:15)
--- NOTE | 2021-12-17 04:19 | PC.NURSE ---
Shift note 23-: Pt continues w/ delirious state, aware of self and but completely unaware of surroundings/situation, communicating/seeing people who are not present. One episode of back pain, relieved w/ Tylenol. Turned and repositioned Q2h, skin intact, mepilex intact to R elbow. Valladares patent w/ lg UOP. Afebrile, tachypneic only when restless/fidgety. Tele reads SR/SB.
[2021-12-17 06:31] LABS: Ionized Calcium* 1.08 mmol/L (1.11-1.30)
[2021-12-17 06:44] LABS: Basophils Absolute Auto 0.02 K/uL (0.00-0.30); Basophils Percent Auto 0.2 % (0.0-3.0); Eosinophils Absolute Auto 0.08 K/uL (0.00-0.50); Eosinophils Percent Auto 0.7 % (0.0-7.0); Hematocrit 30.4 % (33.0-51.0); Hemoglobin* 10.5 gm/dL (12.0-16.0); Immature Granulocytes Abs Auto 0.15 K/uL (0.00-0.30); Lymphocytes Percent Auto 11.8 % (20-44); Mean Corpuscular HGB Conc 35 gm/dL (32-36); Mean Corpuscular Hemoglobin 32 pg (26-34); Mean Corpuscular Volume 91 fL (80-100); Monocytes Percent Auto 10.9 % (0.0-11.0); Platelet Count* 232 K/uL (140-440); Red Blood Count 3.33 m/uL (4.00-5.20); White Blood Count* 10.78 K/uL (4.50-11.00)
[2021-12-17 06:59] LABS: Slide Review Reflex No
[2021-12-17 07:00] LABS: Chloride* 101 mmol/L (96-114)
[2021-12-17 07:01] LABS: Albumin* 2.4 g/dL (3.3-5.0); Potassium* 3.8 mmol/L (3.6-5.1); Sodium* 133 mmol/L (135-149)
[2021-12-17 07:04] LABS: Alanine Aminotransferase* 26 U/L (4-35); Alkaline Phosphatase* 140 U/L (40-150); Aspartate Amino Transferase* 64 U/L (12-35); Bilirubin Total* 0.5 mg/dL (0.1-1.5); Blood Urea Nitrogen* 10 mg/dL (7-30); Carbon Dioxide* 30 mmol/L (20-32); Creatinine* 0.6 mg/dL (0.5-1.5); Est. Creatinine Clearance* 38.75; Estimated Glomerular Filt Rate 91 ml/min; Glucose* 109 mg/dL (60-115); Phosphorus* 1.3 mg/dL (2.5-4.5); Total Protein* 5.3 g/dL (6.0-8.3)
[2021-12-17 07:05] LABS: Calcium* 7.7 mg/dL (8.4-10.6)
[2021-12-17] MEDS: POTASSIUM CHLORIDE 10 MEQ CAPSULE ER 20 MEQ PO ×2 (08:33→17:30)
[2021-12-17] MEDS: FLUOXETINE HCL 20 MG CAPSULE PO (08:33)
[2021-12-17] MEDS: QUETIAPINE 25 MG TABLET PO ×2 (08:33→21:27)
[2021-12-17] MEDS: LIDOCAINE 5% PATCH 1 PATCH TRANSDERMA (08:34)
[2021-12-17] MEDS: POTASSIUM PHOS/SODIUM PHOS 250 MG TABLET PO ×4 (09:14→21:27)
--- NOTE | 2021-12-17 11:47 | P.IMPN_ITS ---
Progress Note: A&P Assessment and plan (1) Gram-positive bacteremia: Problem details: Blood cultures have resulted MSSA. Transitioned from Vancomycin and Zosyn to Ancef on 12/15. Status: Acute (2) Rhabdomyolysis: Status: Acute Assessment and Plan: Resolved. (3) Hypertensive heart disease with biventricular congestive heart failure: Problem details: TTE was completed on 12/14 with the below findings: ?1. Normal left ventricular size, mildly increased wall thickness, hyperdynamic global systolic function, calculated EF of 78 %. ?2. Grade 1 pattern of LV diastolic filling. ?3. The aortic valve is trileaflet and sclerotic, no stenosis and no regurgitation. ?4. The mitral valve is sclerotic, mild mitral regurgitation. ?5. Mildly increased estimated pulmonary pressures by tricuspid regurgitation velocity and right atrial pressure (32 mmHg plus RAP). Status: Acute (4) Hypokalemia: Status: Acute (5) Weakness: Status: Acute (6) Pulmonary atelectasis: Status: Acute (7) Cognitive impairment: Status: Acute Assessment and Plan: Exhibiting some agitation and anxiety secondary to cognitive impairment. Discussed case with daughters; they aware that her mother will need SNF upon discharge and are amenable to trial of Seroquel to help with patient's symptoms related to cognitive impairment. (8) Elevated troponin: Problem details: Peaked at 0.12, TTE performed 12/13 Status: Acute Plan 81-year-old female, admitted 12/13 after being found down at home for approximately 3 days: - Rhabdomyolysis on admission: Resolved at this point. - MSSA bacteremia: Presumably skin source given upper extremity abrasions. Reassuring TTE. Continue Ancef. - Cognitive impairment with behavioral changes: Trial of scheduled Seroquel starting 12/17. No acute findings on MRI. Patient does not drink alcohol as an outpatient. - Lab abnormalities including normocytic anemia, hypophosphatemia, hypokalemia, hypocalcemia: Tolerating replacement. Continue to follow hemoglobin. No concerns for acute bleeding. - Continue Lovenox for prophylaxis. - Dispo: Will require SNF on discharge. Subjective Date Seen: 12/17/21 Interval history: Lori continues to have intermittent confusion with agitation, redirectable. She denies pain. Vital signs and labs are stable. Most recent blood cultures are not exhibiting any growth. Exam Narrative: Exam Narrative: GEN: Alert with intermittent agitation, redirectable HEENT: Normal external ears, EOMIs bilaterally CV: RRR, No concerning murmurs, rubs, or gallops R: Decreased throughout, no acute wheezing, rales, or rhonchi Ext: wwp, no concerning edema Skin:? Abrasions on bilateral upper extremities are stable, no other concerning skin findings noted Neuro:? Mild left-sided facial droop is stable, no other focal abnormalities Psych: Intermittently agitated and confused Const: Vital Signs, click to edit/add: Vital Signs - 24 hr 12/16/21 16:21 12/16/21 16:45 12/16/21 15:00 Temperature 100.4 F H 100.4 F H Pulse Rate 77 Pulse Rate [Right Radial] 75 Respiratory Rate 18 Blood Pressure [Ri ght Arm] 148/65 H Pulse Oximetry 95 Oxygen Delivery Me thod Room Air 12/16/21 18:12 12/16/21 20:10 12/17/21 00:00 Temperature 96.9 F L 97.9 F Pulse Rate 72 Pulse Rate [Right Radial] 69 72 Respiratory Rate 40 H 20 Blood Pressure [Ri ght Arm] 121/54 L 177/95 H Pulse Oximetry 96 96 Oxygen Delivery Me thod Room Air Room Air 12/17/21 03:00 12/17/21 09:30 12/17/21 09:30 Temperature 97.7 F 97.7 F Pulse Rate 69 Pulse Rate [Right Radial] 75 76 Respiratory Rate 20 20 Blood Pressure [Ri ght Arm] 169/64 H 179/75 H Pulse Oximetry 97 96 Oxygen Delivery Fl thod Room Air Room Air Labs Labs: Laboratory Results - last 24 hr 12/16/21 12/17/21 12/17/21 15:15 06:00 06:00 WBC 10.78 RBC 3.33 L Hgb 10.5 L Hct 30.4 L MCV 91 MCH 32 MCHC 35 RDW Coeff of Kathleen 15.0 Plt Count 232 Neut % (Auto) 75.0 H Lymph % (Auto) 11.8 L [place] % (Auto) 10.9 Eos % (Auto) 0.7 Baso % (Auto) 0.2 Neut # (Auto) 8.10 H Lymph # (Auto) 1.30 [place] # (Auto) 1.20 H Eos # (Auto) 0.08 Baso # (Auto) 0.02 Abs Immat Gran (auto) 0.15 Sodium 133 L Potassium 3.5 L 3.8 Chloride 101 Carbon Dioxide 30 BUN 10 Creatinine 0.6 Estimated Creat Clear 38.75 Estimated GFR 91 Glucose 109 Calcium 7.7 L Ionized Calcium [place] Phosphorus 1.3 L Total Bilirubin 0.5 AST 64 H ALT 26 Alkaline Phosphatase 140 Total Protein 5.3 L Albumin 2.4 L 12/17/21 06:00 WBC RBC Hgb Hct MCV MCH MCHC RDW Coeff of Kathleen Plt Count Neut % (Auto) Lymph % (Auto) [place] % (Auto) Eos % (Auto) Baso % (Auto) Neut # (Auto) Lymph # (Auto) [place] # (Auto) Eos # (Auto) Baso # (Auto) Abs Immat Gran (auto) Sodium Potassium Chloride Carbon Dioxide BUN Creatinine Estimated Creat Clear Estimated GFR Glucose Calcium Ionized Calcium [place] 1.08 L Phosphorus Total Bilirubin AST ALT Alkaline Phosphatase Total Protein Albumin
--- NOTE | 2021-12-17 15:01 | PC.SOCIAL ---
Spoke with daughter Supriya again today that [facility] declined pt. due to her confusion. If she clears more they will re-assess. Daughter states she will not consider [facility], [facility], or [place] and the cities [place] far. [place] can be explored but they are still hoping pt. can discharge to [facility]. [facility] is willing to accept pt. but per daughter they are at the bottom of their list at this time. Insurance Defense Paralegal will continue to work on discharge planning needs.
--- NOTE | 2021-12-17 18:30 | PC.NURSE ---
Shift Summary: Patient confused and at times difficult to redirect. After lunch today had hallucinations, needing frequent redirection, this has since subsided. two assist, walker and gait belt due to patients impulsiveness. Tolerating regular diet but has poor appetite. C/o pain with position change but appears comfortable when resting. SCDs taken off, patient confused and convinced someone was trying to grab her while she is wearing them. Frequently repositioned in bed or transferred between bed and recliner. Valladares cath in place. New IV placed maine Gonzalez RN.
[2021-12-17] MEDS: ENOXAPARIN 40 MG/0.4 ML INJ SUBCUT (21:27)
[2021-12-17] MEDS: SODIUM CHLORIDE 0.9 % (FLUSH) 10 ML SYRINGE 5 ML IVF (21:28)
[2021-12-18] VITALS (8 sets, daily range): BP systolic 146–175; BP diastolic 62–73; PULSE 69–80; RESP 16–36; TEMP 36.4–37.2; O2SAT 95–97
[2021-12-18] MEDS: CEFAZOLIN 2 GM in 0.9 % SODIUM CHLORIDE Mini-bag 100 ML IVPB ×3 (00:36→15:41)
--- NOTE | 2021-12-18 05:50 | PC.NURSE ---
shift [id number] pt this shift cooperative and pleasant. Occasional hallucination regarding in the room in the bed while pt in chair. When pt stood up and saw no one in the bed, pt asked where yet. is 3 years according to ED report. Talked to repairer typewriter about kids, grand-kids, and career before prison. Assist of 2 from chair to bed. C/O lower back pain, rolled up towel placed on lower back while in bed, pt verbalized pain relief. U/O dark yasmany, clear in garza bag. IV in left forearm patent and asymptomatic. Pt slept comfortably throughout the night. Assist to change position in bed NOC.
[2021-12-18 07:23] LABS: Basophils Absolute Auto 0.02 K/uL (0.00-0.30); Basophils Percent Auto 0.2 % (0.0-3.0); Eosinophils Absolute Auto 0.14 K/uL (0.00-0.50); Eosinophils Percent Auto 1.5 % (0.0-7.0); Hematocrit 29.2 % (33.0-51.0); Hemoglobin* 9.9 gm/dL (12.0-16.0); Immature Granulocytes Abs Auto 0.16 K/uL (0.00-0.30); Lymphocytes Percent Auto 20.9 % (20-44); Mean Corpuscular HGB Conc 34 gm/dL (32-36); Mean Corpuscular Hemoglobin 31 pg (26-34); Mean Corpuscular Volume 92 fL (80-100); Neutrophils Absolute Auto 6.11 K/uL (1.7-7.0); Neutrophils Percent Auto 63.7 % (42.0-72.0); Platelet Count* 291 K/uL (140-440); RDW Coefficient of Variation % 15.4 % (11.5-15.5); Red Blood Count 3.17 m/uL (4.00-5.20); White Blood Count* 9.58 K/uL (4.50-11.00)
[2021-12-18 07:27] LABS: Slide Review Reflex No
[2021-12-18 07:41] LABS: Albumin* 2.4 g/dL (3.3-5.0); Chloride* 99 mmol/L (96-114)
[2021-12-18 07:42] LABS: Potassium* 3.6 mmol/L (3.6-5.1); Sodium* 132 mmol/L (135-149)
[2021-12-18 07:44] LABS: Creatinine* 0.6 mg/dL (0.5-1.5); Est. Creatinine Clearance* 38.75; Estimated Glomerular Filt Rate 91 ml/min
[2021-12-18 07:45] LABS: Alanine Aminotransferase* 31 U/L (4-35); Alkaline Phosphatase* 144 U/L (40-150); Aspartate Amino Transferase* 120 U/L (12-35); Bilirubin Total* 0.3 mg/dL (0.1-1.5); Blood Urea Nitrogen* 13 mg/dL (7-30); Calcium* 7.8 mg/dL (8.4-10.6); Carbon Dioxide* 30 mmol/L (20-32); Glucose* 98 mg/dL (60-115); Total Protein* 5.4 g/dL (6.0-8.3)
[2021-12-18] MEDS: SODIUM CHLORIDE 0.9 % (FLUSH) 10 ML SYRINGE 5 ML IVF ×3 (07:59→21:36)
[2021-12-18] MEDS: ACETAMINOPHEN 325 MG TABLET 650 MG PO ×2 (08:10→16:56)
[2021-12-18 08:11] LABS: C Reactive Protein* 13.7 mg/dL (0.5-1.0)
[2021-12-18] MEDS: POTASSIUM CHLORIDE 10 MEQ CAPSULE ER 20 MEQ PO ×2 (08:17→18:14)
[2021-12-18] MEDS: POTASSIUM PHOS/SODIUM PHOS 250 MG TABLET PO ×4 (09:02→21:35)
[2021-12-18] MEDS: LIDOCAINE 5% PATCH 1 PATCH TRANSDERMA (09:02)
[2021-12-18] MEDS: QUETIAPINE 25 MG TABLET PO ×2 (09:03→21:35)
[2021-12-18] MEDS: FLUOXETINE HCL 20 MG CAPSULE PO (09:03)
--- NOTE | 2021-12-18 16:29 | PM.IMPN1 ---
Progress Note: A&P Assessment and plan (1) Gram-positive bacteremia: Problem details: Blood cultures have resulted MSSA. Transitioned from Vancomycin and Zosyn to Ancef on 12/15. Suspected source is multiple places on skin where patient has been picking. Status: Acute Assessment and Plan: Blood cultures from 12/16 became positive today. Continue Ancef. Continue to do daily blood cultures. May need to consult Infectious Disease and possibly even transfer for [facility] if patient has persistently positive blood cultures. (2) Hypertensive heart disease with biventricular congestive heart failure: Problem details: TTE was completed on 12/14 with the below findings: ?1. Normal left ventricular size, mildly increased wall thickness, hyperdynamic global systolic function, calculated EF of 78 %. ?2. Grade 1 pattern of LV diastolic filling. ?3. The aortic valve is trileaflet and sclerotic, no stenosis and no regurgitation. ?4. The mitral valve is sclerotic, mild mitral regurgitation. ?5. Mildly increased estimated pulmonary pressures by tricuspid regurgitation velocity and right atrial pressure (32 mmHg plus RAP). Status: Acute Assessment and Plan: Chronic, stable. (3) Hypokalemia: Status: Acute Assessment and Plan: Resolved. (4) Weakness: Status: Acute Assessment and Plan: Improving. Continue PT and OT. (5) Pulmonary atelectasis: Status: Acute Assessment and Plan: Start incentive spirometry. (6) Cognitive impairment: Status: Acute Assessment and Plan: She recently started Seroquel to help with behaviors; she is calm and cooperative today. May need SNF upon discharge. (7) Elevated troponin: Problem details: Peaked at 0.12, TTE performed 12/13 Status: Acute Plan VTE prophylaxis: Low-dose nightly enoxaparin, Gael's, and SCDs. Subjective Time Seen by Provider: 10:00 Date Seen: 12/18/21 Interval history: Lori is feeling well and has no complaints. She denies chest pain or shortness of breath. Exam Narrative: Exam Narrative: General: No acute distress. Awake, alert, oriented to self. Pleasant and interactive. Cooperative. No pallor. No jaundice. Oropharynx: Clear. Mucous membranes moist. Cardiovascular: Regular rate and rhythm. No murmurs, gallops, or rubs. Respiratory: Clear to auscultation bilaterally. No wheezes or crackles. Abdomen: Bowel sounds present. Soft, nondistended, nontender. Const: Vital Signs, click to edit/add: Vital Signs - 24 hr 12/17/21 19:00 12/17/21 23:00 12/17/21 23:00 Temperature 98.8 F 98.1 F Pulse Rate 74 Pulse Rate [Right Radial] 72 71 Respiratory Rate 18 32 H Blood Pressure [Ri ght Arm] 153/89 H 150/61 H Pulse Oximetry 93 92 Oxygen Delivery Me thod Room Air Room Air 12/18/21 03:00 12/18/21 07:34 12/18/21 08:30 Temperature 99.0 F 97.6 F Pulse Rate 73 Pulse Rate [Right Radial] 71 74 Respiratory Rate 30 H 18 Blood Pressure [Ri ght Arm] 151/65 H 171/62 H Pulse Oximetry 97 97 Oxygen Delivery Me thod Room Air Room Air 12/18/21 11:44 12/18/21 15:35 12/18/21 15:47 Temperature 97.8 F 97.9 F Pulse Rate 71 Pulse Rate [Right Radial] 69 80 Respiratory Rate 16 18 Blood Pressure [Ri ght Arm] 146/67 H 169/73 H Pulse Oximetry 95 96 Oxygen Delivery Me thod Room Air Room Air Labs Labs: Laboratory Results - last 24 hr 12/18/21 12/18/21 06:33 06:33 WBC 9.58 RBC 3.17 L Hgb 9.9 L Hct 29.2 L MCV 92 MCH 31 MCHC 34 RDW Coeff of Kathleen 15.4 Plt Count 291 Neut % (Auto) 63.7 Lymph % (Auto) 20.9 [place] % (Auto) 12.0 H Eos % (Auto) 1.5 Baso % (Auto) 0.2 Neut # (Auto) 6.11 Lymph # (Auto) 2.00 [place] # (Auto) 1.10 H Eos # (Auto) 0.14 Baso # (Auto) 0.02 Abs Immat Gran (auto) 0.16 Sodium 132 L Potassium 3.6 Chloride 99 Carbon Dioxide 30 BUN 13 Creatinine 0.6 Estimated Creat Clear 38.75 Estimated GFR 91 Glucose 98 Calcium 7.8 L Total Bilirubin 0.3 AST 120 H ALT 31 Alkaline Phosphatase 144 C-Reactive Protein 13.7 H Total Protein 5.4 L Albumin 2.4 L
--- NOTE | 2021-12-18 17:21 | PC.NURSE ---
Shift Summary: Patient pleasant and cooperative. Requiring two assist to transfer from bed to standing position, otherwise one assist with walker and gait belt. Was able to walk in the [place] this afternoon. C/o pain in lower right back, managed with PRN medication. Vitals stable and WNL, o2 sats >90% on RA. Appetite improved since yesterday. Frequently transferred between chair and bed for patients comfort.
[2021-12-18] MEDS: ENOXAPARIN 40 MG/0.4 ML INJ SUBCUT (21:35)
[2021-12-19] MEDS: CEFAZOLIN 2 GM in 0.9 % SODIUM CHLORIDE Mini-bag 100 ML IVPB ×3 (00:23→16:00)
[2021-12-19] MEDS: ACETAMINOPHEN 325 MG TABLET 650 MG PO ×3 (01:35→18:13)
[2021-12-19 03:00] VITALS: BP 158/56; PULSE 69; RESP 36; TEMP 37.5; O2SAT 93
--- NOTE | 2021-12-19 06:24 | PC.NURSE ---
Shift [id number] Pt ready for bed beginning of shift. VSS, c/o R posterior low back pain. Wind Technician gave gentle massage to the area and pt verbalized improvement. Later in the night, K-pad heating pad used with PRN tylenol (see eMAR). Pt calm and cooperative. Abrasion to L inner elbow likely from adhesive tape, is red, puffy, and warm. Left open to air and will continue to monitor. Valladares catheter patent, u/o clear dark yasmany color, no odor. SCD applied NOC. Skin proximal to IV is bruised. Wounds on L arm continue to heal, bandage on R elbow CDI. Oral cares performed after dinner by FLORA.
[2021-12-19] MEDS: SODIUM CHLORIDE 0.9 % (FLUSH) 10 ML SYRINGE 5 ML IVF ×3 (08:23→20:17)
[2021-12-19] MEDS: POTASSIUM CHLORIDE 10 MEQ CAPSULE ER 20 MEQ PO ×2 (08:23→17:28)
[2021-12-19 08:57] VITALS: BP 182/74; PULSE 67; RESP 20; TEMP 36.4; O2SAT 96
[2021-12-19] MEDS: LIDOCAINE 5% PATCH 1 PATCH TRANSDERMA (09:29)
[2021-12-19] MEDS: FLUOXETINE HCL 20 MG CAPSULE PO (09:29)
[2021-12-19] MEDS: QUETIAPINE 25 MG TABLET PO ×2 (09:29→20:17)
[2021-12-19] MEDS: POTASSIUM PHOS/SODIUM PHOS 250 MG TABLET PO ×4 (09:29→20:15)
[2021-12-19 11:26] VITALS: BP 133/57; PULSE 70; RESP 18; TEMP 36.6; O2SAT 96
--- NOTE | 2021-12-19 14:36 | PM.IMPN1 ---
Progress Note: A&P Assessment and plan (1) Gram-positive bacteremia: Problem details: Blood cultures have resulted MSSA. Transitioned from Vancomycin and Zosyn to Ancef on 12/15. Suspected source is multiple places on skin where patient has been picking. Status: Acute Assessment and Plan: Blood cultures from 12/16 became positive yesterday. Blood culture from 12/17 is so far negative. Continue Ancef. Continue to do daily blood cultures. I spoke with Dr. Archibald about the persistently positive cultures. She recommended 4 weeks of IV cefazolin, a repeat a TTE, and to check her IV sites to see if those are red or tender. I have ordered that for tomorrow. Dr. Archibald also recommended transfer for an inpatient [facility] if the blood culture from 12/17 becomes positive. (2) Hypertensive heart disease with biventricular congestive heart failure: Problem details: TTE was completed on 12/14 with the below findings: ?1. Normal left ventricular size, mildly increased wall thickness, hyperdynamic global systolic function, calculated EF of 78 %. ?2. Grade 1 pattern of LV diastolic filling. ?3. The aortic valve is trileaflet and sclerotic, no stenosis and no regurgitation. ?4. The mitral valve is sclerotic, mild mitral regurgitation. ?5. Mildly increased estimated pulmonary pressures by tricuspid regurgitation velocity and right atrial pressure (32 mmHg plus RAP). Status: Chronic Assessment and Plan: Chronic, stable. (3) Weakness: Status: Acute Assessment and Plan: Improving. Continue PT and OT. (4) Pulmonary atelectasis: Status: Acute Assessment and Plan: Continue incentive spirometry. (5) Cognitive impairment: Status: Acute Assessment and Plan: She recently started Seroquel to help with behaviors; she is calm and cooperative. Planning SNF upon discharge. (6) Elevated troponin: Problem details: Peaked at 0.12, TTE performed 12/13 Status: Acute (7) Hypocalcemia: Status: Acute Assessment and Plan: Low ionized calcium on 12/17/2021. Recheck tomorrow. Also check magnesium. Plan VTE prophylaxis: Low-dose nightly enoxaparin, Gael's, and SCDs. Subjective Time Seen by Provider: 10:32 Date Seen: 12/19/21 Interval history: Lori is feeling well and has no complaints. She denies chest pain or shortness of breath. She told me about her daughter who is a beautician and a her other daughter, Supriya, who is soon traveling to see her oldest son. I spoke with Supriya over the phone this afternoon about the persistently positive blood cultures and the possible need for [facility]. Exam Narrative: Exam Narrative: General: No acute distress. Awake, alert, oriented to self. Pleasant and interactive. Cooperative. No pallor. No jaundice. Oropharynx: Clear. Mucous membranes moist. Cardiovascular: Regular rate and rhythm. No murmurs, gallops, or rubs. Respiratory: Clear to auscultation bilaterally. No wheezes or crackles. Abdomen: Bowel sounds present. Soft, nondistended, nontender. Skin: R forearm IV site has no erythema or tenderness. Const: Vital Signs, click to edit/add: Vital Signs - 24 hr 12/18/21 15:35 12/18/21 15:47 12/18/21 19:00 Temperature 97.9 F Pulse Rate 71 Pulse Rate [Right Radial] 80 70 Respiratory Rate 18 36 H Blood Pressure [Ri ght Arm] 169/73 H 172/68 H Pulse Oximetry 96 95 Oxygen Delivery Me thod Room Air Room Air 12/18/21 23:00 12/18/21 23:00 12/19/21 03:00 Temperature 98.8 F 99.5 F Pulse Rate Pulse Rate [Right Radial] 75 69 Respiratory Rate 34 H 34 H 36 H Blood Pressure [Ri ght Arm] 175/71 H 158/56 H Pulse Oximetry 95 93 Oxygen Delivery Me thod Room Air Room Air 12/19/21 08:57 12/19/21 11:26 Temperature 97.6 F 97.9 F Pulse Rate Pulse Rate [Right Radial] 67 70 Respiratory Rate 20 18 Blood Pressure [Ri ght Arm] 182/74 H 133/57 L Pulse Oximetry 96 96 Oxygen Delivery Me thod Room Air Room Air
[2021-12-19 15:50] VITALS: BP 151/63; PULSE 73; RESP 20; TEMP 36.4; O2SAT 96
--- NOTE | 2021-12-19 17:37 | PC.NURSE ---
Shift Summary: Patient pleasant and cooperative. Up with 2 assist to go from lying to sitting, one assist with ambulation. Vitals stable and WNL. C/o more pain today, needing frequent repositioning, some pain relief with PRN medication and heat. Unable to walk in halls due to pain, ambulated in room with staff. Tolerating regular diet, appetite improved. IV in left forearm infiltrated, new IV placed by Shannan BEY in right wrist.
[2021-12-19 19:00] VITALS: BP 140/60; PULSE 76; RESP 40; TEMP 37.5; O2SAT 95
[2021-12-19] MEDS: ENOXAPARIN 40 MG/0.4 ML INJ SUBCUT (20:15)
[2021-12-19] MEDS: FUROSEMIDE 10 MG/ML inj 20 MG IVP (20:16)
[2021-12-19 23:00] VITALS: BP 141/66; PULSE 67; RESP 33; TEMP 37; O2SAT 93
[2021-12-20] MEDS: CEFAZOLIN 2 GM in 0.9 % SODIUM CHLORIDE Mini-bag 100 ML IVPB ×3 (00:15→16:06)
[2021-12-20] MEDS: OXYCODONE 5 MG TABLET PO (01:57)
[2021-12-20 03:00] VITALS: BP 164/58; PULSE 68; RESP 40; TEMP 37.1; O2SAT 93
--- NOTE | 2021-12-20 05:36 | PC.NURSE ---
Shift [id number] Pt this shift in bed for the night upon arrival. Auscultated fine crackles throughout bilat lungs, diminished bases, and bilat pitting +2 edema in feet. Respirations 40. notified and Lasix ordered, see eMAR. Pt daughter visited [facility] and updated on POC. Pt primary c/o NOC was severe R side sciatic pain. Pt heard calling out for help around 0200 in pain stating I just can't keep on with this pain. Its too much. Area had been massaged frequently by flex o writer operator for temporary relief. Heat pad on 30 min intermittently, rolled up towel for a counter pressure splint and position change not effective. MD notified and single dose of oxycodone given, pt slept comfortably rest of night. U/o significant and clear pale yellow, see I&O. Weight at 0200 was 60.328 for 1# weight loss in 24 hours.
[2021-12-20 07:17] LABS: Basophils Absolute Auto 0.03 K/uL (0.00-0.30); Basophils Percent Auto 0.3 % (0.0-3.0); Eosinophils Absolute Auto 0.14 K/uL (0.00-0.50); Eosinophils Percent Auto 1.3 % (0.0-7.0); Hematocrit 28.6 % (33.0-51.0); Hemoglobin* 9.9 gm/dL (12.0-16.0); Immature Granulocytes Abs Auto 0.46 K/uL (0.00-0.30); Lymphocytes Percent Auto 17.9 % (20-44); Mean Corpuscular HGB Conc 35 gm/dL (32-36); Mean Corpuscular Hemoglobin 31 pg (26-34); Mean Corpuscular Volume 91 fL (80-100); Monocytes Percent Auto 10.5 % (0.0-11.0); Neutrophils Absolute Auto 6.81 K/uL (1.7-7.0); Neutrophils Percent Auto 65.6 % (42.0-72.0); Platelet Count* 383 K/uL (140-440); RDW Coefficient of Variation % 15.5 % (11.5-15.5); Red Blood Count 3.15 m/uL (4.00-5.20); White Blood Count* 10.39 K/uL (4.50-11.00)
[2021-12-20 07:23] LABS: Slide Review Reflex No
[2021-12-20 07:33] LABS: Chloride* 95 mmol/L (96-114); Potassium* 4.1 mmol/L (3.6-5.1); Sodium* 131 mmol/L (135-149)
[2021-12-20 07:35] LABS: Creatinine* 0.7 mg/dL (0.5-1.5); Est. Creatinine Clearance* 38.75; Estimated Glomerular Filt Rate 87 ml/min
[2021-12-20 07:36] LABS: Blood Urea Nitrogen* 15 mg/dL (7-30); Calcium* 8.1 mg/dL (8.4-10.6); Carbon Dioxide* 35 mmol/L (20-32); Glucose* 100 mg/dL (60-115); Magnesium* 1.6 mg/dL (1.5-2.6)
[2021-12-20 07:38] VITALS: BP 157/75; PULSE 70; RESP 34; TEMP 37.1; O2SAT 94
[2021-12-20] MEDS: POTASSIUM CHLORIDE 10 MEQ CAPSULE ER 20 MEQ PO ×2 (07:47→17:26)
[2021-12-20] MEDS: QUETIAPINE 25 MG TABLET PO ×2 (08:25→20:25)
[2021-12-20] MEDS: FLUOXETINE HCL 20 MG CAPSULE PO (08:26)
[2021-12-20] MEDS: POTASSIUM PHOS/SODIUM PHOS 250 MG TABLET PO ×4 (08:26→20:25)
[2021-12-20] MEDS: LIDOCAINE 5% PATCH 1 PATCH TRANSDERMA (08:26)
[2021-12-20] MEDS: SODIUM CHLORIDE 0.9 % (FLUSH) 10 ML SYRINGE 5 ML IVF ×2 (08:27→21:00)
--- NOTE | 2021-12-20 09:16 | NUTR.NU ---
LOS Note Day 7: Patient admitted after fall. Diet is regular with meal intakes averaging ~60% since admit, however intakes have improved recently. Weight has been stable since admit; Current weight 133 lbs, admit weight (12/13/21) 134 lbs. Current BMI is normal at 22.2 kg/m2. Patient is from assisted living at [facility]. Per IDT today, plan is for patient to be placed in SNF upon discharge. With weight stable and adequate oral intakes - no nutrition interventions at this time. RDN will continue to monitor and follow-up prn.
--- NOTE | 2021-12-20 09:45 | CRLHL7_ITS ---
For Patients: As a result of the 21st Century Cures Act, medical imaging exams and procedure reports are released immediately into your electronic medical record. You may view this report before your referring provider. If you have questions, please contact your health care provider. INDICATION: Right flank and low back pain. TECHNIQUE: CT of the abdomen and pelvis with 65 cc Isovue 370 IV contrast. Coronal and sagittal reconstructions. COMPARISON: CT chest, abdomen, pelvis 12/13/2021. FINDINGS: The liver, gallbladder, spleen, pancreas, and adrenal glands are negative. The common bile duct is mildly dilated measuring 9 mm in diameter. Hepatic and portal veins are patent. Symmetric enhancement of the kidneys. Left renal cyst. No hydronephrosis or ureteral dilation. No obstructing urinary calculi identified. Interval placement of a Valladares catheter in the bladder. New mild diffuse bladder wall thickening. Gas within the bladder likely related to instrumentation. There is a new focus of intraluminal hyperdensity in the anterior bladder which may represent blood clot (series 2 image 136). No bowel dilation. Moderate to large amount of stool throughout the colon. Nonspecific presacral fat stranding and trace free fluid. No significant colonic wall thickening in this region. The appendix is not identified. No intraperitoneal free air. The endometrial lining is thickened measuring 10 mm. No adnexal mass. Aortoiliac vascular calcifications. No lymphadenopathy. Left convex lumbar curve. Degenerative changes of the lumbar spine. There is a possible epidural collection anteriorly at L3-L4 measuring approximately 5 cm in length (series 5, image 48). New subcutaneous fat stranding in the left flank and pelvis. Elevation of the left hemidiaphragm. New small left pleural effusion with associated compressive atelectasis. Minimal right basilar atelectasis. Emphysema in the lung bases. Coronary artery calcifications. IMPRESSION: 1. Possible epidural collection anteriorly at L3-L4. This could be further evaluated with lumbar spine MRI if clinically indicated. 2. New small left pleural effusion with associated compressive atelectasis. 3. Interval Valladares catheter placement with new mild bladder wall thickening. New focus of intraluminal hyperdensity in the bladder may represent blood clot. 4. The endometrial lining is thickened for a postmenopausal female. This could be further evaluated with pelvic ultrasound. 5. New subcutaneous fat stranding in the left flank and pelvis. Correlate with physical exam. Please note that all CT scans at this facility use dose modulation, iterative reconstruction, and/or weight-based dosing when appropriate to reduce radiation dose to as low as reasonably achievable. Dictated by Hyun Pulido MD @ 12/20/2021 12:12:51 PM (Electronically Signed)
[2021-12-20] MEDS: LORazepam 0.5 MG TABLET PO (10:02)
[2021-12-20 10:53] LABS: Albumin* 2.5 g/dL (3.3-5.0)
[2021-12-20 10:56] LABS: Alanine Aminotransferase* 18 U/L (4-35); Alkaline Phosphatase* 153 U/L (40-150); Aspartate Amino Transferase* 88 U/L (12-35); Bilirubin Direct* 0.2 mg/dL (0.0-0.5); Bilirubin Total* 0.2 mg/dL (0.1-1.5); Total Protein* 5.8 g/dL (6.0-8.3)
[2021-12-20 11:06] VITALS: BP 156/57; PULSE 71; RESP 32; TEMP 36.6; O2SAT 94
[2021-12-20 16:00] VITALS: BP 155/64; PULSE 71; RESP 30; TEMP 37.2; O2SAT 94
--- NOTE | 2021-12-20 16:37 | P.DS_ITS ---
Transfer Discharge Sum: Prov Provider Date Seen: 12/20/21 Date of admission: 12/13/21 16:03 Primary care physician: Guerrero Hodge MD Consults: 12/13/21 16:57 Consult to Physical Therapy [CONS] Routine Comment: Reason(s) for PT Consult:: Evaluate and Treat Any Restrictions?:: No Restrictions Comment: Unwitnessed fall Consult to Distribution Transformer Assembler [CONS] Routine Comment: Reason for Consult:: Discharge Planning Needs 12/13/21 17:01 Consult to Occupational Therapy [CONS] Routine Comment: Reason(s) for OT Consult:: Evaluate and Treat Any Restrictions?:: No Restrictions Comment: MOCA and ADLs DS: Diagnosis Discharge Diagnosis (1) Epidural abscess: Status: Suspected Problem details: Possible epidural abscess. On CT abd 12/20/21: Possible epidural collection anteriorly at L3-L4. (2) Hypocalcemia: Status: Acute (3) Hypertensive heart disease with biventricular congestive heart failure: Status: Chronic Problem details: TTE was completed on 12/14 with the below findings: ?1. Normal left ventricular size, mildly increased wall thickness, hyperdynamic global systolic function, calculated EF of 78 %. ?2. Grade 1 pattern of LV diastolic filling. ?3. The aortic valve is trileaflet and sclerotic, no stenosis and no regurgitation. ?4. The mitral valve is sclerotic, mild mitral regurgitation. ?5. Mildly increased estimated pulmonary pressures by tricuspid regurgitation velocity and right atrial pressure (32 mmHg plus RAP). (4) Pulmonary atelectasis: Status: Acute (5) Lactic acidosis: Status: Acute (6) Respiratory alkalosis: Status: Acute (7) Hyperventilation: Status: Acute (8) Elevated troponin: Status: Acute Problem details: Peaked at 0.12, TTE performed 12/13 (9) Normocytic anemia: Status: Acute (10) Hypokalemia: Status: Acute (11) Rhabdomyolysis: Status: Acute (12) Gram-positive bacteremia: Status: Acute Problem details: Blood cultures have resulted MSSA. Transitioned from Vancomycin and Zosyn to Ancef on 12/15. Suspected source is multiple places on skin where patient has been picking. (13) Dehydration: Status: Acute (14) Coagulation disorder: Status: Acute (15) Cognitive impairment: Status: Acute (16) Sensorineural hearing loss (SNHL) of both ears: Status: Acute (17) Acute delirium: Status: Acute (18) Abnormal liver function tests: Status: Acute (19) Leukocytosis: Status: Acute (20) Bacteremia: Status: Acute (21) Sepsis, Gram positive: Status: Acute (22) Methotrexate, terminal clerk, current use: Status: Acute (23) Rheumatoid arthritis, seropositive: Status: Acute (24) Weakness: Status: Acute (25) Open wound of left forearm: Status: Acute Problem details: appears to be from chronic picking (26) Thickened endometrium: Status: Acute Problem details: Seen on CT abd/pelvis 12/20/21 Transfer Discharge Sum: Med Medications Active and Home Medications: Home Medications fluoxetine 20 mg capsule 20 mg PO DAILY 12/04/21 [History Confirmed 12/13/21] folic acid 1 mg tablet 1 mg PO DAILY 12/04/21 [History Confirmed 12/13/21] methotrexate sodium 2.5 mg tablet 15 mg PO .weekly 12/04/21 [History Confirmed 12/13/21] aspirin 81 mg tablet,delayed release 81 mg PO DAILY 12/13/21 [History Confirmed 12/13/21] donepezil 5 mg tablet 5 mg PO HS 12/13/21 [History Confirmed 12/13/21] rivastigmine 4.6 mg/24 hour transdermal patch 1 patch transdermal DAILY 12/13/21 [History Confirmed 12/13/21] Active Medications Acetaminophen (Acetaminophen 325 Mg Tablet) 650 mg PO Q6H PRN PRN Reason: Pain Last Admin: 12/19/21 18:13 Dose: 650 mg Aspirin (Aspirin 81 Mg Tablet Ec) 81 mg PO DAILY [facility] Last Admin: 12/14/21 08:37 Dose: 81 mg Calcium Carbonate (Calcium Carbonate/Vitamin D3 (500mg/5mcg) Tablet) 1 tab PO BID [facility] Last Admin: 12/20/21 08:25 Dose: 1 tab Enoxaparin Sodium (Enoxaparin 40 Mg/0.4 Ml Inj) 40 mg [facility] Last Admin: 12/19/21 20:15 Dose: 40 mg Fluoxetine HCl (Fluoxetine Hcl 20 Mg Capsule) 20 mg PO DAILY [facility] Last Admin: 12/20/21 08:26 Dose: 20 mg Folic Acid (Folic Acid 1 Mg Tablet) 1 mg PO DAILY [facility] Last Admin: 12/14/21 08:37 Dose: 1 mg Cefazolin Sodium 2 gm/ Sodium (Chloride) 100 mls @ 200 mls/hr IVPB Q8H [facility] Last Admin: 12/20/21 16:06 Dose: 200 mls/hr IV Miscellaneous Supplies (Rivastigmine) 1 patch TOPICAL DAILY [facility] Last Admin: 12/20/21 08:42 Dose: Not Given Lidocaine (Lidocaine 5% Patch) 1 patch TRANSDERMA Q24H [facility] Last Admin: 12/20/21 08:26 Dose: 1 patch Ondansetron HCl (Ondansetron Odt 4 Mg Tab) 4 mg PO Q6H PRN Ondansetron HCl (Ondansetron 2 Mg/Ml Inj) 4 mg IVP Q4H PRN PRN Reason: Nausea Oxycodone HCl (Oxycodone 5 Mg Tablet) 2.5 mg PO Q4H PRN Potassium Chloride (Potassium Chloride 10 Meq Capsule Er) 20 meq PO BIDWM [facility] Last Admin: 12/20/21 07:47 Dose: 20 meq Potassium Phosphate (Potassium Phos/Sodium Phos 250 Mg Tablet) 250 mg PO QID [facility] Last Admin: 12/20/21 13:09 Dose: 250 mg Quetiapine Fumarate (Quetiapine 25 Mg Tablet) 25 mg PO BID [facility] Last Admin: 12/20/21 08:25 Dose: 25 mg Sodium Chloride (Sodium Chloride 0.9 % (Flush) 10 Ml Syringe) 5 ml IVF .FLUSH PRN Last Admin: 12/19/21 15:59 Dose: 5 ml Sodium Chloride (Sodium Chloride 0.9 % (Flush) 10 Ml Syringe) 5 ml IVF BID [facility] Last Admin: 12/20/21 08:27 Dose: 5 ml Transfer Discharge Sum: Hosp Hospital Course Hospital course: Lori Scott is a 81 year old female who lives in assisted living at [facility] had failed to warehouse picker her meals on wheels prompting staff to be concerned and check on her. They found her on the floor and she was not making sense when they tried to talk with her. It is possible that she was on the floor for at least 3 days. She has chronic back and lower extremity pain in on admission it was noted that she did not have any worsening of these pains recently. She did not have any focal neurologic findings. On admission she had hyper alert and manic type disposition and it was noted that it was difficult to get meaningful information from her. She does have a history of cognitive impairment and has been on methotrexate for seropositive rheumatoid arthritis. She was admitted and started on Zosyn and vancomycin. She was treated for rhabdomyolysis. A lidocaine patch was placed on her right low back for chronic low back pain from sciatica. Blood cultures drawn at admission became positive within the 1st 12-18 hours. They ultimately grew out MSSA and she was transitioned to Ancef. 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 Her last fever, at 100.4? F, was on 12/16/2021. Her most recent positive blood culture was on 12/16/2021. Since we do not have LELA capability, a TTE was obtained on 12/14/2021, the results of which are above. Her blood culture drawn 12/17/2021 is negative, now at 72 hours. On 12/19/2021, I spoke with [place] [facility] was improving, but then on 12/20/2021, her back pain flared and a CT abdomen and pelvis with contrast was obtained that showed possible epidural collection anteriorly at L3-L4. I spoke with the patient's daughter, Supriya, and discussed the possibility that this is an epidural abscess considering MSSA bacteremia. Supriya noted that she wanted us to pursue transfer to [facility]. We called [facility] to speak with Neurosurgery, however at this time of 5:14 p.m., we still have not heard back from them. We have tried again, without results. We tried [facility], however there was no answer. We [place] [facility] they were full. I spoke with [facility], Dr. Rucker from neuro surgery, wanted this patient on their wait list for the medical floor. I then spoke with Dr. Ruano from Internal Medicine who accepted this patient onto their wait list for regular med surg bed. The call center noted that it might be tomorrow before the patient would be able to be transferred. Both Dr. Rucker and Dr. Ruano confirmed that she did not need an MRI lumbar spine here since they would do 1 there if needed. Also they had no further recommendations for a change in her plan of care while she remains here waiting for a bed there. Time Spent with Patient Time attestation: Total time spent providing and/or coordinating transfer services: Total time spent: Greater than 30 minutes (Spoke with patient, daughters, physicians at other facilities for transfer) Exam Narrative: Exam Narrative: General: Anxious, painful, tachypneic. Awake, alert, oriented to self. Cooperative. No pallor. No jaundice. Oropharynx: Clear. Mucous membranes moist. Cardiovascular: Regular rate and rhythm. No murmurs, gallops, or rubs. Respiratory: Clear to auscultation bilaterally. No wheezes or crackles. Back: Tender to palpation about 3 inches above R SI joint that reproduces the pain she is experiencing. R SI joint has only mild tenderness that does not reproduce the pain. Abdomen: Bowel sounds present. Soft, nondistended, nontender. Skin: R forearm IV site has no erythema or tenderness. Left forearm near posterior wrist has chronic open sore, with surrounding mild erythema and tenderness. Const: Vital Signs, click to edit/add: Vital Signs - 24 hr 12/19/21 19:00 12/19/21 23:00 12/19/21 23:00 Temperature 99.5 F 98.6 F Pulse Rate [Left R adial] Pulse Rate [Right Radial] 76 67 Respiratory Rate 40 H 33 H 33 H Blood Pressure [Le ft Arm] Blood Pressure [Ri ght Arm] 140/60 H 141/66 H Pulse Oximetry 95 93 Oxygen Delivery Me thod Room Air Room Air 12/20/21 03:00 12/20/21 07:38 12/20/21 11:06 Temperature 98.8 F 98.8 F 97.9 F Pulse Rate [Left R adial] 70 Pulse Rate [Right Radial] 68 71 Respiratory Rate 40 H 34 H 32 H Blood Pressure [Le ft Arm] 164/58 H 157/75 H Blood Pressure [Ri ght Arm] 156/57 H Pulse Oximetry 93 94 94 Oxygen Delivery Me thod Room Air Room Air Room Air Transfer Discharge Sum: Data Data Completed and Pending Completed studies during hospitalization: Ordering Physician: Charly Hunt M.D. Date of Service: 12/13/21 Procedure(s): CT chest abdomen pelv wo con Accession Number(s): [id number] cc: Guerrero Hodge MD; Charly Hunt M.D.~ For Patients: As a result of the 21st Century Cures Act, medical imaging exams and procedure reports are released immediately into your electronic medical record. You may view this report before your referring provider. If you have questions, please contact your health care provider. INDICATION: Trauma COMPARISON: No TECHNIQUE: CT examination of the chest, abdomen and pelvis was performed without intravenous contrast. Thin section axial images were obtained from the thoracic inlet through the pubic symphysis. Oral contrast was not administered. Sagittal and coronal reformatted imaging was performed Please note that all CT scans at this facility use dose modulation, iterative reconstruction, and/or weight-based dosing when appropriate to reduce radiation dose to as low as reasonably achievable. FINDINGS: CHEST: Heart size normal. No mediastinal or hilar adenopathy or mass. No pericardial effusion. No abnormal fluid in the mediastinum. Atherosclerotic vascular and valvular calcifications noted. The lungs show biapical pleural-parenchymal scarring. Background pattern of emphysema and linear and reticular opacities consistent with scarring and fibrosis. Bibasilar atelectasis. No definite acute posttraumatic finding. No pleural effusion or pneumothorax. A few small nodules are noted which are statistically most likely benign. ABDOMEN AND PELVIS: LIVER/BILIARY SYSTEM:The liver is normal in size and configuration given the lack of intravenous contrast. There is no visible focal mass and there is no intra- or extra hepatic biliary ductal dilatation.The gall bladder appears normal. ADRENALS: Normal non-contrast appearance KIDNEYS, URETERS and BLADDER:The right kidney is unremarkable. And 2.8 centimeters cyst noted in the midpole on the left appearing to no obstructive uropathy. Distended but otherwise unremarkable appearing bladder. SPLEEN:Normal non-contrast appearance. PANCREAS: Normal non-contrast appearance. RETROPERITONEUM and MESENTERY: There is no mass, adenopathy or aortic aneurysm. Dense atherosclerotic vascular calcifications GASTROINTESTINAL SYSTEM: There is no evidence of diverticulitis, colitis, mechanical obstruction, or appendicitis. The small bowel as visualized appears normal.Fecal retention. Diverticulosis PELVIS: No mass, adenopathy or free fluid. OSSEOUS STRUCTURES and ABDOMINAL WALL: Demineralized osseous structures and degenerative changes. No visible acute osseous injury. Cutaneous and subcutaneous induration in the high left thoracic region anteriorly is probably hemorrhage associated with direct trauma. This is in the region of the left clavicle which is not fully visualized on this study. Consider radiography of this area. OTHER: No free fluid or free air. IMPRESSION: 1. CHEST: No evidence of intrathoracic injury on this noncontrast study. Chronic appearing abnormalities as described above 2. ABDOMEN AND PELVIS: No visible acute injury on this noncontrast study 3. SOFT TISSUES AND OSSEOUS STRUCTURES: Cutaneous and subcutaneous induration anterior to the left clavicle which is not fully visualized on this study. This is probably soft tissue contusion though consider clavicle radiography if this area is tender. No visible acute fracture or destructive process identified on this exam. Please note that all CT scans at this facility use dose modulation, iterative reconstruction, and/or weight-based dosing when appropriate to reduce radiation dose to as low as reasonably achievable. Dictated by Marko Bernard MD @ 12/13/2021 2:40:36 PM (Electronically Signed) Ordering Physician: Charly Hunt M.D. Date of Service: 12/13/21 Procedure(s): CT head/brain wo con Accession Number(s): [id number] cc: Guerrero Hodge MD; Charly Hunt M.D.~ For Patients: As a result of the Century Cures Act, medical imaging exams and procedure reports are released immediately into your electronic medical record. You may view this report before your referring provider. If you have questions, please contact your health care provider. INDICATION: Fall with confusion and weakness. TECHNIQUE: CT head without contrast. COMPARISON: None. FINDINGS: CSF spaces: Within normal limits for age. Brain parenchyma and extra-axial spaces: The schultz-white differentiation is normal. No sign of mass, hemorrhage, or midline shift. No extra-axial fluid collection. Right occipital lobe encephalomalacia. Skull base and calvarium: The visualized paranasal sinuses and mastoid air cells demonstrate no acute or significant findings. The visualized orbits are grossly unremarkable. No skull fractures. IMPRESSION: No acute findings present. 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 Remainder of the exam is unremarkable. Please note that all CT scans at this facility use dose modulation, iterative reconstruction, and/or weight-based dosing when appropriate to reduce radiation dose to as low as reasonably achievable. Dictated by Everardo Chandler MD @ 12/13/2021 2:40:31 PM (Electronically Signed) 12/14/2021 Echocardiogram: Normal LV size, mildly increased wall thickness, hyperdynamic global systolic function, calculated EF 78%. Grade 1 pattern LV diastolic filling. Aortic valve is trileaflet and sclerotic, no stenosis and no regurgitation. Mitral valve is sclerotic, mild mitral regurgitation. Mildly increased estimated pulmonary pressures by tricuspid regurgitation velocity and right atrial pressure 32 mm Hg plus RAP. Ordering Physician: Nini Heaton M.D. Date of Service: 12/14/21 Procedure(s): XR chest 1V portable Accession Number(s): [id number] cc: Nini Heaton M.D.; Guerrero Hodge MD~ For Patients: As a result of the Cures Act, medical imaging exams and procedure reports are released immediately into your electronic medical record. You may view this report before your referring provider. If you have questions, please contact your health care provider. INDICATION: Sepsis. TECHNIQUE: Chest 1 views. COMPARISON: None. FINDINGS: Lungs: Coarse interstitial markings suggest chronic changes. No focal consolidation. Pleura: Small left pleural effusion. Heart and Mediastinum: The cardiomediastinal silhouette is normal. The vessels are unremarkable. Bones: Unremarkable. IMPRESSION: Small left pleural effusion. Dictated by Keagan Delgado MD @ 12/14/2021 11:16:52 AM (Electronically Signed) Ordering Physician: Sneha Mayorga M.D. Date of Service: 12/15/21 Procedure(s): XR clavicle LT Accession Number(s): [id number] cc: Sneha Mayorga M.D.; Guerrero Hodge MD~ For Patients: As a result of the Cures Act, medical imaging exams and procedure reports are released immediately into your electronic medical record. You may view this report before your referring provider. If you have questions, please contact your health care provider. Indication: LT CLAVICULAR/SHOULDER PAIN Technique: Two views left clavicle Comparison: None Findings: No fracture is present. Scarring at the right lung apex. Vascular calcifications. Chronic degenerative cystic changes at the left humeral head at the greater tuberosity. Mild spurring at the AC joint. Left lung apex clear. Impression: Intact left clavicle without fracture or destructive osseous lesion. Dictated by Dalton Ramirez MD @ 12/15/2021 10:42:49 AM (Electronically Signed) Ordering Physician: Ja Lewis M.D. Date of Service: 12/15/21 Procedure(s): XR chest 1V portable Accession Number(s): [id number] cc: Ja Lewis M.D.; Guerrero Hodge MD~ For Patients: As a result of the Cures Act, medical imaging exams and procedure reports are released immediately into your electronic medical record. You may view this report before your referring provider. If you have questions, please contact your health care provider. INDICATION: Tachypnea. Fever. COMPARISON: 14 December 2021. FINDINGS: Small left dependent pleural effusion and left base airspace opacity similar to comparison. Pulmonary vascularity is normal. No new focal airspace opacity. Dictated by Scott Hernandez MD @ 12/15/2021 9:58:25 PM (Electronically Signed) 12/15/2021 EKG: Normal sinus rhythm, 78 beats per minute, cannot rule out anterior infarct, age undetermined, poor R-wave progression. 12/13/2021 EKG: Normal sinus rhythm, 87 beats per minute. Possible left atrial enlargement, septal infarct, age undetermined, ST and T-wave abnormalities, consider inferior ischemia, ST and T-wave abnormality, consider anterior lateral ischemia. Ordering Physician: Sneha Mayorga M.D. Date of Service: 12/16/21 Procedure(s): MR head/brain wo con Accession Number(s): [id number] cc: Sneha Mayorga M.D.; Guerrero Hodge MD~ For Patients: As a result of the Cures Act, medical imaging exams and procedure reports are released immediately into your electronic medical record. You may view this report before your referring provider. If you have questions, please contact your health care provider. INDICATION: Left facial droop. Technique Multiplanar multisequence noncontrast MR images acquired. Comparison CT brain 12/13/2021. Findings Prominence of the ventricles and sulci compatible mild to moderate diffuse cerebral volume loss. No mass effect or midline shift. Scattered T2 FLAIR hyperintensities in the supratentorial white matter, typical for mild chronic microvascular ischemic changes. Moderate chronic infarction right occipital lobe associated with ex vacuo dilatation of the right occipital horn. No diffusion restriction to suggest acute infarction. No recent intracranial hemorrhage or pathologic extra-axial fluid collection. The major arterial flow voids of the skullbase are preserved. The globes are symmetric. Mild right sphenoid sinus mucosal thickening. Trace bilateral mastoid effusions. Small osteoma projecting from the outer table of the right frontal calvarium. IMPRESSION: 1. No acute infarction, mass effect, or recent intracranial hemorrhage. 2. Moderate chronic infarction right occipital lobe. 3. Mild chronic microvascular ischemic changes and [id number] diffuse cerebral volume loss. Dictated by David Kennedy MD @ 12/16/2021 1:05:50 PM (Electronically Signed) Ordering Physician: Sneha Mayorga M.D. Date of Service: 12/16/21 Procedure(s): US venous LE RT Accession Number(s): [id number] cc: Sneha Mayorga M.D.; Guerrero Hodge MD~ For Patients: As a result of the Cures Act, medical imaging exams and procedure reports are released immediately into your electronic medical record. You may view this report before your referring provider. If you have questions, please contact your health care provider. INDICATION: Leg pain and swelling. TECHNIQUE: Ultrasound venous duplex lower right extremity. Compression venous exam was performed using schultz-scale, color Doppler, and spectral Doppler analysis. COMPARISON: None. FINDINGS: Deep veins: Sonographic imaging demonstrates the right common femoral, deep femoral, superficial femoral, popliteal, posterior tibial and the contralateral left common femoral veins to be fully compressible with normal color Doppler blood flow. Superficial veins: Greater saphenous vein is fully compressible. Soft tissues: No popliteal cyst. IMPRESSION: Normal right lower extremity venous ultrasound, no sign of deep venous thrombosis. Dictated by Keagan Delgado MD @ 12/16/2021 1:04:51 PM (Electronically Signed) Ordering Physician: Christian Mosqueda MD Date of Service: 12/20/21 Procedure(s): CT abdomen pelvis w con Accession Number(s): [id number] cc: Christina Mosqueda MD; Guerrero Hodge MD~ For Patients: As a result of the Cures Act, medical imaging exams and procedure reports are released immediately into your electronic medical record. You may view this report before your referring provider. If you have questions, please contact your health care provider. INDICATION: Right flank and low back pain. TECHNIQUE: CT of the abdomen and pelvis with 65 cc Isovue 370 IV contrast. Coronal and sagittal reconstructions. COMPARISON: CT chest, abdomen, pelvis 12/13/2021. FINDINGS: The liver, gallbladder, spleen, pancreas, and adrenal glands are negative. The common bile duct is mildly dilated measuring 9 mm in diameter. Hepatic and portal veins are patent. Symmetric enhancement of the kidneys. Left renal cyst. No hydronephrosis or ureteral dilation. No obstructing urinary calculi identified. Interval placement of a Valladares catheter in the bladder. New mild diffuse bladder wall thickening. Gas within the bladder likely related to instrumentation. There is a new focus of intraluminal hyperdensity in the anterior bladder which may represent blood clot (series 2 image 136). No bowel dilation. Moderate to large amount of stool throughout the colon. Nonspecific presacral fat stranding and trace free fluid. No significant colonic wall thickening in this region. The appendix is not identified. No intraperitoneal free air. The endometrial lining is thickened measuring 10 mm. No adnexal mass. Aortoiliac vascular calcifications. No lymphadenopathy. Left convex lumbar curve. Degenerative changes of the lumbar spine. There is a possible epidural collection anteriorly at L3-L4 measuring approximately 5 cm in length (series 5, image 48). New subcutaneous fat stranding in the left flank and pelvis. Elevation of the left hemidiaphragm. New small left pleural effusion with associated compressive atelectasis. Minimal right basilar atelectasis. Emphysema in the lung bases. Coronary artery calcifications. IMPRESSION: 1. Possible epidural collection anteriorly at L3-L4. This could be further evaluated with lumbar spine MRI if clinically indicated. 2. New small left pleural effusion with associated compressive atelectasis. 3. Interval Valladares catheter placement with new mild bladder wall thickening. New focus of intraluminal hyperdensity in the bladder may represent blood clot. 4. The endometrial lining is thickened for a postmenopausal female. This could be further evaluated with pelvic ultrasound. 5. New subcutaneous fat stranding in the left flank and pelvis. Correlate with physical exam. Please note that all CT scans at this facility use dose modulation, iterative reconstruction, and/or weight-based dosing when appropriate to reduce radiation dose to as low as reasonably achievable. Dictated by Hyun Pulido MD @ 12/20/2021 12:12:51 PM (Electronically Signed) Discharge Plan Discharge Disposition: Xfer Other Discharge Location: [facility] Date of Admission: 12/13/21 16:03 Attending Provider on Discharge: Christina Mosqueda Primary Care Provider: Guerrero Hodge Discharge Medications: Continued fluoxetine 20 mg capsule 20 mg PO DAILY Label Comments: TAKE ONE CAPSULE BY MOUTH (20MG) ONCE DAILY folic acid 1 mg tablet 1 mg PO DAILY Label Comments: TAKE ONE TABLET BY MOUTH ONCE DAILY methotrexate sodium 2.5 mg tablet 15 mg PO .weekly Label Comments: TAKE 6 TABLETS (15MG) BY MOUTH ONCE WEEKLY aspirin 81 mg tablet,delayed release (DR/EC) 81 mg PO DAILY donepezil 5 mg tablet 5 mg PO HS Label Comments: TAKE 1 TABLET (5 MG) BY MOUTH AT BEDTIME. rivastigmine 4.6 mg/24 hour patch 24 hour 1 patch transdermal DAILY Label Comments: APPLY 1 PATCH ON DRY, CLEAN, HAIRLESS SKIN ONCE DAILY. Discharge Orders: Discharge Order (Routine); Ordered 12/20/21 Ordered By: Shyam Phillip Activity Level: Up with assist Discharge Diet: Regular Follow Up Appointments: Guerrero Hodge MD [Primary Care Provider] - Forms: [facility] Info Instructions
[2021-12-20] MEDS: OXYCODONE 5 MG TABLET 2.5 MG PO (18:22)
--- NOTE | 2021-12-20 18:43 | PC.NURSE ---
Pt. will be transferring to [facility] this evening. [id number] report given to Maria R Nurse on [address].
[2021-12-20 19:29] LABS: SARS PCR* Negative SARS-CoV-2 (Negative)
[2021-12-20] MEDS: ENOXAPARIN 40 MG/0.4 ML INJ SUBCUT (20:25)
--- NOTE | 2021-12-20 21:39 | PC.NURSE ---
Pt. AO, following commands, VSS. EMS at bedside picked pt. to transfer to [facility], nurse to nurse report given by SOTERO Jolly during mid shift. Daughter at bedside, all belongings given to daughter.
== END 2021-12-20 21:20 | disposition other institution (70) | DRG 871 ==
LOC: ED 14:25 → MEDSURG 16:04
PROVIDERS: Family Medicine; Internal Medicine; Admitting Provider Family Medicine; Emergency Provider Family Medicine; PCP Family Medicine; Visit Provider Family Medicine
DX: A41.01 Sepsis due to Methicillin susceptible Staphylococcus aureus (principal); G06.2 Extradural and subdural abscess, unspecified; F05 Delirium due to known physiological condition; M62.82 Rhabdomyolysis; J98.11 Atelectasis; E87.2 Acidosis; E87.3 Alkalosis; E83.51 Hypocalcemia; E87.6 Hypokalemia; M05.9 Rheumatoid arthritis with rheumatoid factor, unspecified; E86.0 Dehydration; G30.9 Alzheimer's disease, unspecified; F02.80 Dementia in other diseases classified elsewhere, unspecified severity, without behavioral disturbance, psychotic disturbance, mood disturbance, and anxiety; D64.9 Anemia, unspecified; I11.0 Hypertensive heart disease with heart failure; I50.82 Biventricular heart failure; W19.XXXA Unspecified fall, initial encounter; Y92.099 Unspecified place in other non-institutional residence as the place of occurrence of the external cause; S50.912A Unspecified superficial injury of left forearm, initial encounter; F34.1 Dysthymic disorder; Z79.899 Other long term (current) drug therapy; H90.3 Sensorineural hearing loss, bilateral; M54.30 Sciatica, unspecified side
CPT/HCPCS: 36415; 51701; 70450; 70551; 71045; 71250; 73000; 74176; 74177; 80048; 80053; 80061; 80069; 80076; 81001; 82077; 82150; 82330; 82550; 82803; 82977; 83605; 83690; 83735; 83880; 84100; 84132; 84145; 84443; 84484; 85025; 85027; 85379; 85610; 85730; 86140; 87040; 87086; 87186; 87502; 87634; 87635; 93005; 93306; 93307; 93971; 97110; 97116; 97163; 97166; 97530; 97535; 99284; 99285; G0378; A9270; C9113; J0610; J0690; J1650; J1940; J2543; J3370; J3480; J7030; J7050; Q9967

== ENCOUNTER 2021-12-20 21:16 | Outpatient (CLI) | payer MEDICARE, OTHER, SELFPAY | END 2021-12-20 21:17 | disposition home or self-care (01) | LOC: AMB 12-25 21:33 | PROVIDERS: PCP Family Medicine; Visit Provider Family Medicine | DX: J90 Pleural effusion, not elsewhere classified (principal); G06.2 Extradural and subdural abscess, unspecified; E83.51 Hypocalcemia | CPT/HCPCS: A0425; A0428 ==

== ENCOUNTER 2022-09-29 11:20 | Outpatient (RCR) | payer SELFPAY | END 2022-10-18 16:58 | disposition home or self-care (01) | LOC: MOW 11:20 | PROVIDERS: PCP Family Medicine; Visit Provider Family Medicine | DX: Z76.0 Encounter for issue of repeat prescription (principal) | CPT/HCPCS: S5170 ==

== ENCOUNTER 2023-08-22 11:52 | Outpatient (REF) | payer MEDICARE, OTHER, SELFPAY ==
[2023-08-22 12:40] LABS: Basophils Absolute Auto 0.03 K/uL (0.00-0.30); Basophils Percent Auto 0.5 % (0.0-3.0); Eosinophils Absolute Auto 0.14 K/uL (0.00-0.50); Eosinophils Percent Auto 2.4 % (0.0-7.0); Hematocrit 43.1 % (33.0-51.0); Hemoglobin* 13.9 gm/dL (12.0-16.0); Immature Granulocytes Abs Auto 0.02 K/uL (0.00-0.30); Immature Granulocytes Pct Auto 0.3 %; Lymphocytes Absolute Auto 2.01 K/uL (0.90-2.90); Lymphocytes Percent Auto 34.2 % (20-44); Mean Corpuscular HGB Conc 32 gm/dL (32-36); Mean Corpuscular Hemoglobin 31 pg (26-34); Mean Corpuscular Volume 97 fL (80-100); Neutrophils Absolute Auto 3.09 K/uL (1.7-7.0); Neutrophils Percent Auto 52.6 % (42.0-72.0); Platelet Count* 227 K/uL (140-440); Red Blood Count 4.46 m/uL (4.00-5.20); White Blood Count* 5.88 K/uL (4.50-11.00)
[2023-08-22 13:00] LABS: Slide Review Reflex No
[2023-08-22 13:25] LABS: Albumin* 3.9 g/dL (3.3-5.0)
[2023-08-22 13:28] LABS: Aspartate Amino Transferase* 30 U/L (12-35); Bilirubin Direct* 0.1 mg/dL (0.0-0.5); Bilirubin Total* 0.4 mg/dL (0.1-1.5); Total Protein* 7.4 g/dL (6.0-8.3)
[2023-08-22 13:29] LABS: Alanine Aminotransferase* 15 U/L (4-35); Alkaline Phosphatase* 63 U/L (40-150)
== END 2023-08-22 11:53 | disposition home or self-care (01) ==
LOC: NPINS 11:52
PROVIDERS: PCP Family Medicine; Visit Provider Family Medicine
DX: M06.00 Rheumatoid arthritis without rheumatoid factor, unspecified site (principal)
CPT/HCPCS: 80076; 85025

== ENCOUNTER 2024-09-17 12:42 | Outpatient (CLI) | payer MEDICARE, OTHER, SELFPAY ==
[2024-09-17 13:11] LABS: Basophils Absolute Auto 0.03 K/uL (0.00-0.30); Basophils Percent Auto 0.7 % (0.0-3.0); Eosinophils Absolute Auto 0.13 K/uL (0.00-0.50); Eosinophils Percent Auto 2.9 % (0.0-7.0); Hematocrit 43.3 % (33.0-51.0); Hemoglobin* 13.8 gm/dL (12.0-16.0); Immature Granulocytes Abs Auto 0.01 K/uL (0.00-0.30); Immature Granulocytes Pct Auto 0.2 %; Lymphocytes Absolute Auto 1.27 K/uL (0.90-2.90); Lymphocytes Percent Auto 27.9 % (20-44); Mean Corpuscular HGB Conc 32 gm/dL (32-36); Mean Corpuscular Hemoglobin 31 pg (26-34); Mean Corpuscular Volume 98 fL (80-100); Monocytes Percent Auto 11.6 % (0.0-11.0); Neutrophils Absolute Auto 2.58 K/uL (1.7-7.0); Neutrophils Percent Auto 56.7 % (42.0-72.0); Platelet Count* 213 K/uL (140-440); RDW Coefficient of Variation % 14.9 % (11.5-15.5); Red Blood Count 4.41 m/uL (4.00-5.20); White Blood Count* 4.55 K/uL (4.50-11.00)
[2024-09-17 13:12] LABS: Alanine Aminotransferase* 19 U/L (4-35); Alkaline Phosphatase* 59 U/L (40-150); Aspartate Amino Transferase* 41 U/L (12-35); Bilirubin Direct* 0.3 mg/dL (0.0-0.5); Bilirubin Total* 0.6 mg/dL (0.1-1.5); Estimated Glomerular Filt Rate 56 ml/min; Total Protein* 7.2 g/dL (6.0-8.3)
[2024-09-17 13:44] LABS: Slide Review Reflex No
== END 2024-09-17 12:43 | disposition home or self-care (01) ==
LOC: NPINS 12:46
PROVIDERS: PCP Family Medicine; Visit Provider Family Medicine
DX: M05.9 Rheumatoid arthritis with rheumatoid factor, unspecified (principal); Z79.631 Long term (current) use of antimetabolite agent; Z79.899 Other long term (current) drug therapy; I11.0 Hypertensive heart disease with heart failure; I50.82 Biventricular heart failure; I50.1 Left ventricular failure, unspecified
CPT/HCPCS: 80076; 82565; 85025

== ENCOUNTER 2024-10-18 14:33 | Outpatient (CLI) | payer MEDICARE, OTHER, SELFPAY ==
--- OUTSIDE RECORDS SUMMARY | 2024-10-22 00:17 | XMS_ITS | Clinical Summary ---
Author Organization [email or web address] Address [address] [place] [address] Care Team Providers Care Medical Equipment Sales Name Role Phone Guerrero Hodge MD Primary Care Provider +1- [phone] Allergies No known active allergies Medications aspirin [...] age 65+ Completed 2007 (Completed outside of [facility]) Tdap Completed 10/28/2013 Pneumococcal series for age 50+ Completed 11/04/2015, 05/19/2006 Hepatitis B series for 19+ Aged Out N o longer eligible based on patient's age to complete this topic Insurance LxDATA MR PB ONLY [employer] HB MEDICARE PART B HB ONLY [id number] [facility] [place] [id number] MEDICARE PROVIDER BASED [employer] Advance Directives Documents on File Type Date Recorded Patient Rn Geriatric Expl anation POLST 11/17/2021 * DNR (Latest Code Status on File) Date Activated Date Inactivated Comments 01/28/2022 7:58 AM 01/28/2022 3:12 PM With yana wallace Question Answer Comments Code Status Discussion: Reviewed Preferences * Full Code Date Activated Date Inactivated Comments 01/27/2022 2:48 PM 01/28/2022 7:58 AM Question Answer Comments Code Status Discussion: Reviewed Preferences Care Teams Medical Equipment Sales Relationship Specialty Start Date End Date [place] [address] PCP - General Family Practice 12/14/21
--- OUTSIDE RECORDS SUMMARY | 2024-10-22 00:17 | XMS_ITS | Clinical Summary ---
Author Organization [place] Address [facility] [place] [address] Care Team Providers Care Cleaner Operator Name Role Phone Guerrero Hodge MD Primary Care Provider +1- [phone] Jane Acosta MD Unavailable Allergies No known [...] and gender (Leah et al., NEJ, DOI: 10.1056/[id number]) Blood STRUCTURE OF RIGHT UPPER LIMB / Unknown Venipuncture / Unknown 02/08/2022 5:18 AM CDT 02/08/2022 10:18 AM CDT us Cori Hogan MD LAB - BLOOD ORDERABLES Final R esult U LAB[facility]ATORY [facility] Core Lab [address] [facility], [address] [address], [facility] [phone] * TSH with free T4 reflex (12/21/2021 4:17 AM CDT) TSH 2.15 0.30 - 4.20 uIU/mL 12/21/2021 6:52 AM CDT [facility] Blood STRUCTURE OF RIGHT UPPER LIMB / Unknown Venipuncture / Unknown 12/21/2021 4:17 AM CDT 12/21/2021 4:22 AM CDT us Ang Madrid MD LAB - BLOOD ORDERABLES Final Result U LABORATORY [facility] [place] [facility] Lab [address] [facility], [address] [place] [address], [facility] [phone] * (ABNORMAL) Comprehensive metabolic panel (12/21/2021 4:17 [...] creatinine equation which includes age and gender (Herd Tester et al., NEJM, DOI: 10.1056/[id number]) Blood STRUCTURE OF RIGHT UPPER LIMB / Unknown Venipuncture / Unknown 12/21/2021 4:17 AM CDT 12/21/2021 4:22 AM CDT Ang Madrid MD LAB - BLOOD ORDERABLES Final Result [facility] [place] [facility] [address] [facility], [address] [place] [address], [facility] [phone] from Last 3 Months or Most Recently Relevant to Health Maintenance Insurance [employer] MEDICARE Advance Directives For more information, please contact: [phone] * No CPR- Do NOT Intubate (Latest [...] continue PREVIOUSLY ORDERED code status Care Teams Cleaner Operator Relationship Specialty Start Date End Date Guerrero Hodge MD PCP - General Family Medicine 12/21/21 Jane Acosta MD Resident Internal Medicine 12/30/21
== END 2024-10-18 14:34 | disposition home or self-care (01) ==
LOC: AMB 10-21 09:44
PROVIDERS: PCP Family Medicine; Visit Provider Internal Medicine
DX: S09.90XA Unspecified injury of head, initial encounter (principal); W16.212A Fall in (into) filled bathtub causing other injury, initial encounter; Y93.E1 Activity, personal bathing and showering; Y92.031 Bathroom in apartment as the place of occurrence of the external cause
CPT/HCPCS: A0425; A0429

== ENCOUNTER 2024-10-18 15:13 | Emergency (ER) | payer MEDICARE, OTHER, SELFPAY ==
[2024-10-18 15:15] VITALS: BP 158/69; PULSE 55; RESP 24; TEMP 36.3; O2SAT 89
--- OUTSIDE RECORDS SUMMARY | 2024-10-18 15:15 | XMS_ITS | Clinical Summary ---
Author Organization [facility] Address [facility] [place] [address] Care Team Providers Care Janitor Custodian Name Role Phone Guerrero Hodge MD Primary Care Provider [phone]- [phone] Jane Acosta MD Unavailable Allergies No known active allergies Medications FLUoxetine (PROZAC) 20 MG capsule Take 20 mg by mouth daily Active folic acid (FOLVITE) 1 MG tablet Take 1 mg by mouth daily Active methotrexate 2.5 MG tablet Take 15 mg by mouth every 7 days Active aspirin 81 MG EC tablet Take 81 mg by mouth daily Active acetaminophen (TYLENOL) 325 MG tabletIndicatio ns:Spinal abscess (H) Take 2 tablets (650 mg) by mouth every 6 hours 2 Active QUEtiapine (SEROQUEL) 25 MG tabletIndicatio ns:Spinal abscess (H) Take 0.5 tablets (12.5 mg) by mouth At Bedtime for 30 days 15 tablet 2 Active menthol (ICY HOT) 5 % PTCHIndications :Spinal abscess (H),Pain Apply 1 patch topically every 8 hours as needed for muscle soreness 2 Active oxyCODONE (ROXICODONE) 5 MG tabletIndicatio ns:Spinal abscess (H) Take 0.5 tablets (2.5 mg) by mouth every 4 hours as needed for moderate to severe pain 25 tablet 2 Active Active Problems Problem Noted Date Diagnosed Date 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 Social History Tobacco Use Types Packs/Day Years Used Date Smoking Tobacco: Never Assessed Adolescent Education Answer Date Record ed Getting School Help Needed Not on file 01/21 Comments Unknown Sex and Gender Information Value Date Recorded Sex Assigned at Not on file Legal Sex Female 4:51 PM CDT Gender Identity Not on file Sexual Orientation Not on file Last Filed Vital Signs Vital Sign Reading Time Taken Comments Blood Pressure 168/68 12/30/2021 6:21 AM CDT Pulse 62 12/30/2021 6:21 AM CDT Temperature 36.8 C (98.3 F) 12/30/2021 6:21 AM CDT Respiratory Rate 18 12/30/2021 6:21 AM CDT Oxygen Saturation 96% 12/30/2021 6:21 AM CDT Inhaled Oxygen Concentration - - Weight 57.4 kg (126 lb 8.7 oz) 12/29/2021 5:28 P M CDT Height 157.5 cm (5' 2) 12/29/2021 5:57 PM CDT Body Mass Index 23.15 12/29/2021 5:28 PM CDT Plan of Treatment Health Maintenance Due Date Last Done Comments ANNUAL REVIEW OF HM ORDERS 1941 DEXA 1941 HF ACTION PLAN 1941 LIPID 1941 FALL RISK ASSESSMENT 2006 RSV VACCINE (1 - 1-dose 75+ series) 2016 ZOSTER VACCINE (1 of 2) 01/19/2017 11/24/2016 BMP 08/09/2022 02/08/2022, 07/2021, 01/25/2022, Additional history exists MEDICARE ANNUAL WELLNESS VISIT 08/20/2022 08/20/2021 ALT 12/21/2022 12/21/2021 CBC 02/08/2023 02/08/2022, 0 07/2021, 01/25/2022, Additional history exists DTAP/TDAP/TD VACCINE (2 - Td or Tdap) 10/29/2023 10/28/2013, 05/19/2006, 02/17/1997, Additional history exists COVID-19 VACCINE ( season) 2023 02/24/2022, 10/25/2021, 04/01/2021, Additional history exists PHQ-2 (once per calendar year) 2024 02/10/2022 INFLUENZA VACCINE (Season Ended) 2024 02/16/2022, 02/03/2022, 02/22/2021, Additional history exists ADVANCE CARE PLANNING 09/03/2028 09/04/2023, 022 PNEUMOCOCCAL VACCINE 50+ YEARS Completed 11/04/2015, 05/19/2006 TSH W/FREE T4 REFLEX Completed 12/21/2021 HPV VACCINE Aged Out No longer eligi ble based on patient's age to complete this topic MENINGITIS VACCINE Aged Out No longer eligible based on patient's age to complete this topic Procedures Procedure Name Priority Date/Time Associated Diagnosis Comments CBC WITH PLATELETS & DIFFERENTIAL Routine 02/08/2022 5:18 AM CDT care home (current) use of antibiotics Osteomyelitis of vertebra, lumbar region (H) Essential (primary) hypertension BASIC METABOLIC PANEL Routine 02/08/2022 5:18 AM CDT care home (current) use of antibiotics Osteomyelitis of vertebra, lumbar region (H) Essential (primary) hypertension TSH WITH FREE T4 REFLEX Add-On 12/21/2021 4:17 AM CDT COMPREHENSIVE METABOLIC PANEL Routine 12/21/2021 4:17 AM CDT from Last 3 Months or Most Recently Relevant to Health Maintenance Results * Basic metabolic panel (02/08/2022 5:18 AM CDT) Sodium 138 136 - 145 mmol/L 02/08/2022 11:58 AM CDT [facility] Potassium 4.5 3.4 - 5.3 mmol/L 02/08/2022 11:58 AM CDT [facility] Chloride 103 98 - 107 mmol/L 02/08/2022 11:58 AM CDT [facility] Carbon Dioxide (CO2) 28 22 - 29 mmol/L 02/08/2022 11:58 AM CDT [facility] Anion Gap 7 7 - 15 mmol/L 02/08/2022 11:58 AM CDT [facility] Urea Nitrogen 20.6 8.0 - 23.0 mg/dL 02/08/2022 11:58 AM CDT [facility] Creatinine 0.77 0.51 - 0.95 mg/dL 02/08/2022 11:58 AM CDT [facility] Calcium 9.0 8.8 - 10.2 mg/dL 02/08/2022 11:58 AM CDT [facility] Glucose 73 70 - 99 mg/dL 02/08/2022 11:58 AM CDT [facility] GFR Estimate 78 >60 mL/min/1.7 3m2 02/08/2022 11:58 AM CDT [facility] Comment:Effective April 012020 eGFRcr in adults is calculated using the 2020 CKD-EPI creatinine equation which includes age and gender (Leah et al., NEJ, DOI: 10.1056/FXJUdc1132565) Blood STRUCTURE OF RIGHT UPPER LIMB / Unknown Venipuncture / Unknown 02/08/2022 5:18 AM CDT 02/08/2022 10:18 AM CDT us Cori Hogan MD LAB - BLOOD ORDERABLES Final R esult [facility] [address] [facility], [address] [address], [facility] [phone] * TSH with free T4 reflex (12/21/2021 4:17 AM CDT) TSH 2.15 0.30 - 4.20 uIU/mL 12/21/2021 6:52 AM CDT [facility] Blood STRUCTURE OF RIGHT UPPER LIMB / Unknown Venipuncture / Unknown 12/21/2021 4:17 AM CDT 12/21/2021 4:22 AM CDT us Ang Madrid MD LAB - BLOOD ORDERABLES Final Result [facility] [address] [facility], [address] [place] [id number], [facility] [phone] * (ABNORMAL) Comprehensive metabolic panel (12/21/2021 4:17 AM CDT) Sodium 131(L) 136 - 145 mmol/L 12/21/2021 4:55 AM CDT [facility] Potassium 4.2 3.4 - 5.3 mmol/L 12/21/2021 4:55 AM CDT [facility] Creatinine 0.78 0.51 - 0.95 mg/dL 12/21/2021 4:55 AM CDT [facility] Urea Nitrogen 12.2 8.0 - 23.0 mg/dL 12/21/2021 4:55 AM CDT [facility] Chloride 96(L) 98 - 107 mmol/L 12/21/2021 4:55 AM CDT [facility] Carbon Dioxide (CO2) 29 22 - 29 mmol/L 12/21/2021 4:55 AM CDT [facility] Anion Gap 6(L) 7 - 15 mmol/L 12/21/2021 4:55 AM CDT [facility] Glucose 100(H) 70 - 99 mg/dL 12/21/2021 4:55 AM CDT [facility] Calcium 8.3(L) 8.8 - 10.2 mg/dL 12/21/2021 4:55 AM CDT [facility] Protein Total 5.6(L) 6.4 - 8.3 g/dL 12/21/2021 4:55 AM CDT [facility] Albumin 2.4(L) 3.5 - 5.2 g/dL 12/21/2021 4:55 AM CDT [facility] Bilirubin Total 0.2 <=1.2 mg/dL 12/21/2021 4:55 AM CDT [facility] Alkaline Phosphatase 118(H) 35 - 104 U/L 12/21/2021 4:55 AM CDT [facility] AST 42(H) 10 - 35 U/L 12/21/2021 4:55 AM CDT [facility] ALT <5(L) 10 - 35 U/L 12/21/2021 4:55 AM CDT [facility] GFR Estimate 76 >60 mL/min/1.7 3m2 12/21/2021 4:55 AM CDT [facility] Comment:Effective April 012020 eGFRcr in adults is calculated using the 2020 CKD-EPI creatinine equation which includes age and gender ([employer] Developer et al., NEJM, DOI: 10.1056/GDFIpu4732203) Blood STRUCTURE OF RIGHT UPPER LIMB / Unknown Venipuncture / Unknown 12/21/2021 4:17 AM CDT 12/21/2021 4:22 AM CDT Ang Madrid MD LAB - BLOOD ORDERABLES Final Result [facility] [address] [facility], [address] [place] [address], [facility] [phone] from Last 3 Months or Most Recently Relevant to Health Maintenance Insurance [employer] MEDICARE Advance Directives For more information, please contact: [phone] * No CPR- Do NOT Intubate (Latest Code Status on File) Date Activated Date Inactivated Comments 12/23/2021 1:35 PM 12/30/2021 1:52 PM NO basic or a dvanced life-sustaining interventions are performed Return to DNR/DNI now that patient has completed her LELA procedure. Question Answer Comments Code status determined by: Other (please documen t) * Full Code Date Activated Date Inactivated Comments 12/23/2021 11:24 AM 12/23/2021 1:35 PM All basic a nd advanced life-sustaining interventions are performed as appropriate Question Answer Comments Code status determined by: Discussion with patie nt/ legal decision maker * No CPR- Do NOT Intubate Date Activated Date Inactivated Comments 12/20/2021 11:40 PM 12/23/2021 11:24 AM NO basic o r advanced life-sustaining interventions are performed Question Answer Comments Code status determined by: Unable to dis cuss and no AD/POLST on file; continue PREVIOUSLY ORDERED code status Care Teams Janitor Custodian Relationship Specialty Start Date End Date Guerrero Hodge MD PCP - General Family Medicine 12/21/21 Jane Acosta MD Resident Internal Medicine 12/30/21
--- OUTSIDE RECORDS SUMMARY | 2024-10-18 15:15 | XMS_ITS | Clinical Summary ---
Author Organization [facility] Address [address] [place] [address] Care Team Providers Care Manual Equipment Mechanic Name Role Phone Guerrero Hodge MD Primary Care Provider [phone]- [phone] Allergies No known active allergies Medications aspirin (ECOTRIN) 81 mg enteric coated tablet Take 1 Tablet (81 mg) by mouth once daily with a meal. 0 09/22/19 21 Active acetaminophen (TYLENOL) 325 mg tabletIndication s:Pain Take 2 Tablets (650 mg) by mouth four times daily 6 hours apart. Max acetaminophen dose: 4000mg in 24 hrs. 12/31/19 22 Active Menthol (Icy Hot, menthol,) 5 % patch Apply 1 Patch topically to affected area(s) every 8 hours if needed (Pain). 12/31/19 22 Active methotrexate (RHEUMATREX) 2.5 mg tablet Take 15 mg by mouth every Monday. 12/31/19 22 Active oxyCODONE (ROXICODONE) 5 mg immediate release tabletIndication s:Discitis, unspecified spinal region Take 0.5 Tablets (2.5 mg) by mouth every 4 hours if needed for Pain (moderate to servere pain). 10 Tablet 01/29/20 22 Active folic acid 1 mg tabletIndication s:Rheumatoid arthritis, seropositive (HC) Take 1 Tablet (1 mg) by mouth once daily. 90 Tablet 11/06/19 23 Active FLUoxetine (PROZAC) 20 mg capsuleIndicatio ns:Dysthymia TAKE 1 CAPSULE (20 MG) BY MOUTH ONCE DAILY. 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 She will not take that again. 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 Overview (09/21/2020): She has had this since 2002 She takes Methotrexate and folic acid for this Benign essential HTN 09/21/2020 Dysthymia 09/21/2020 Immunizations Immunization Administration Dates Next Due COVID-19 vaccine (Moderna 100mcg/0.5mL) PF, MDV 06/11/2020,05/14/2020 Influenza, High-dose Inactivated 02/07/2018,01/29 Influenza, High-dose Quadriv alent Inactivated 02/22/2021 Influenza, IIV3 (Age >=3 years) 02/19/20 14,02/25/2013,02/23/2012,2009,01/19/2009 Influenza, IIV4 02/05/2020,02/22/2019 Pneumococcal Poly,23-Valent (Pneumovax) 05/19/2006 Pneumococcal conj 13-Valent (Prevnar 13) 11/04/2015 Td (Age >=7 Years) 05/19/2006,02/17/1997, 995 Tdap 10/28/2013 Zoster (Zostavax-ZVL, live) 11/24/2016 Family History Medical History Relation Name Comments Cancer Brother Cancer Father of cancer at 83 Cancer Mother of stomach cancer at age Relation Name Status Comments Brother Father (Age 83) Mother Social History Tobacco Use Types Packs/Day Years Used Date Smoking Tobacco: Some Days Smokeless Tobacco: Never Tobacco Cessation:Ready to Q uit: Yes Comments:1 cigarette a month Alcohol Use Standard Drinks/Week Comments Never 0 (1 standard drink = 0.6 oz pur e alcohol) PHQ-2 Answer Date Recorded PHQ-2 TOTAL SCORE 0 08/20/2021 Social Connections Answer Date Recorded Frequency of Communication with Friends and Fami ly Not on file 08/21/2022 Financial Resource Strain Answer Date R ecorded Difficulty of Paying Living Expenses 3 08/20/2021 Difficulty of Paying Living Expenses Not on file 08/20/2021 Food Insecurity Answer Date Recorded Worried About Running Out of Food in the Last Ye ar 1 08/20/2021 Transportation Needs Answer Date Record ed Lack of Transportation (Medical) 1 08/20/2021 Housing Stability Answer Date Recorded Unable to Pay for Housing in the Last Year 1 08/20/2021 Comments No Sex and Gender Information Value Date Recorded Sex Assigned at Not on file Legal Sex Female 11:57 AM CDT Gender Identity Not on file Sexual Orientation Not on file Occupation Industry Job Start Date Job End Date Retired Not on file Not on file Not on file Obstetrics History Last Filed Vital Signs Vital Sign Reading Time Taken Comments Blood Pressure 163/51 01/28/2022 1:24 AM CDT Pulse 63 01/28/2022 1:24 AM CDT Temperature 37 C (98.6 F) 01/28/2022 1:24 AM CDT Respiratory Rate 18 01/28/2022 1:24 AM CDT Oxygen Saturation 94% 01/28/2022 1:24 AM CDT Inhaled Oxygen Concentration - - Weight 56.7 kg (125 lb) 01/26/2022 3:37 PM CDT Height 154.9 cm (5' 1) 01/26/2022 3:37 PM CDT Body Mass Index 23.62 01/26/2022 3:37 PM CDT Plan of Treatment Health Maintenance Due Date Last Done Comments RSV vaccine for adults or (1 - 1-dose 75+ series) 2016 Zoster (shingles) series for age 50+ (1 of 2) 01/19/2017 11/24/2016 BMI (ht and wt on same day) for age 18+ 08/20/2022 08/20/2021, 09/21/2020 Medicare Wellness for age 65+ 08/21/2022 08/20/2021 Depression screening for age 12+ 08/22/2022 08/22/2021, 08/20/2021, 08/20/2021, Additional history exists Tetanus booster 10/29/2023 10/28/2013, 05/01, 02/17/1997, Additional history exists COVID-19 vaccine series ( season) 2023 10/25/2021, 04/01/2021, 06/11/2020, Additional history exists Influenza Vaccine (Season Ended) 2024 02/05/2020, 02/22/2019, 02/07/2018, Additional history exists DEXA/DXA scan for age 65+ Completed 2007 ([facility]) Tdap Completed 10/28/2013 Pneumococcal series for age 50+ Completed 11/04/2015, 05/19/2006 Hepatitis B series for 19+ Aged Out N o longer eligible based on patient's age to complete this topic Insurance [employer] MR PB ONLY [employer] HB MEDICARE PART B HB ONLY [id number] [facility] [place] [id number] MEDICARE PROVIDER BASED V [employer] Advance Directives Documents on File Type Date Recorded Patient Collar Turner Operator Expl anation POLST 11/17/2021 * DNR (Latest Code Status on File) Date Activated Date Inactivated Comments 01/28/2022 7:58 AM 01/28/2022 3:12 PM With yana wallace Question Answer Comments Code Status Discussion: Reviewed Preferences * Full Code Date Activated Date Inactivated Comments 01/27/2022 2:48 PM 01/28/2022 7:58 AM Question Answer Comments Code Status Discussion: Reviewed Preferences Care Teams Manual Equipment Mechanic Relationship Specialty Start Date End Date [place] [address] PCP - General Family Practice 12/14/21
--- NOTE | 2024-10-18 15:35 | ED.GENADULT ---
HPI - General Adult General Chief complaint: Fall/Minor Trauma Stated complaint: Fall Time Seen by Provider: 10/18/24 15:17 History of Present Illness HPI narrative: Per EMS, pt was at home with daughter today. Pt has baseline dementia dx and mental status is normally all over the place. When daughter arrived at around 1300, pt complained of blurry vision and did not initially recognize her daughter, seemed off. Pt then went to take a shower around 1400 and daughter heard the pt fall in the bathroom. Pt did hit the back of her head on the ground. Unknown LOC but pt denies LOC. Pt called daughter at 0930 and seemed normal at that time. Pt states no blurry vision at this time in triage. Pt did immediately recognize 3 family members by name as they walked in the room at this time. 84-year-old woman presenting to the emergency department via EMS followed by number of family members. Apparently was at home with her daughter today. Events though couple of hours prior to arrival where had some blurry vision and did seem to recognize daughter. Underlying history of dementia. Then subsequently take a shower which she typically would wait until her daughters are present to do that and was noted to have a fall apparently striking the back of her head on the ground. Suspected loss of consciousness though she denies. No neck or back pain. Claims to be feeling well right now. But does admit that 1 daughter looks subtly blurry. Denies significant head pain. No shortness of breath or chest pain. No cough or cold symptoms recently. No fever. No sense of palpitations/irregular heart beats this afternoon. Typically resides in assisted living. Family describes history of TIAs sometime back. On review of record echo from November 2021 noting normal LV size, thickness. Hyperdynamic with an EF of 70-75%. Related Data Home Medications ?Medication ?Instructions ?Recorded ?Confirmed fluoxetine 20 mg capsule 20 mg PO DAILY 12/04/21 10/18/24 folic acid 1 mg tablet 1 mg PO DAILY 12/04/21 10/18/24 methotrexate sodium 2.5 mg tablet 15 mg PO .weekly 12/04/21 10/18/24 Allergies Allergy/AdvReac Type Severity Reaction Status Date / Time No Known Drug Allergies Allergy Verified 12/04/21 18:13 Review of Systems Status of ROS: Reports: 6 or more systems reviewed and unremarkable except as noted in History and below [facility] Medical History Durable power of mergers and acquisitions attorney in chart Health care directive on file ?Z78.9 - Other specified health status (ICD-10) Hypertensive heart disease with biventricular congestive heart failure ?I11.0 - Hypertensive heart disease with heart failure (ICD-10) ?I50.82 - Biventricular heart failure (ICD-10) CHF with unknown LVEF ?I50.9 - Heart failure, unspecified (ICD-10) Essential (primary) hypertension ?I10 - Essential (primary) hypertension (ICD-10) Dysthymia ?F34.1 - Dysthymic disorder (ICD-10) Sensorineural hearing loss (SNHL) of both ears ?H90.3 - Sensorineural hearing loss, bilateral (ICD-10) Memory deficit ?R41.3 - Other amnesia (ICD-10) Cognitive impairment ?R41.89 - Other symptoms and signs involving cognitive functions and awareness (ICD-10) Methotrexate, intermediate manager, current use ?Z79.899 - Other intermediate (current) drug therapy (ICD-10) Rheumatoid arthritis, seropositive ?M05.9 - Rheumatoid arthritis with rheumatoid factor, unspecified (ICD-10) Surgical History History of section ?Z98.891 - History of uterine scar from previous surgery (ICD-10) Family History Mother Gastric cancer Father Cancer Brother Cancer Social History Highest level of school completed/degree received: don't know Smoking Status: Unknown if ever smoked Do you use any of these nicotine containing products: None Second hand tobacco smoke exposure: No How often do you have a drink containing alcohol: monthly or less AUDIT-C Alcohol total score: 1 Non-prescribed substance use: denies use Exam Narrative: Exam Narrative: Pleasant. With good energy. Hard of hearing. NAD. Moving all extremities without difficulty. No indication injury home or skin. Lower extremities are without edema. Well-perfused. Cranial nerves 2-12 intact. Pupils are 3 mm and equal and appropriately reactive. Neck is supple nontender. Back nontender. Lungs are clear. Heart in slower rate but appears to be regular. Abdomen soft and nontender. Are oropharynx without evidence of bleeding, dentition intact. Const: Vital Signs, click to edit/add: Vital Signs - 24 hr 10/18/24 15:15 10/18/24 16:12 10/18/24 17:14 Temperature 97.3 F L Pulse Rate 55 L Pulse Rate [Pulse Oximeter] 55 L Pulse Rate [orthos tatic lying Pulse Oximeter] Pulse Rate [orthos tatic sitting] Pulse Rate [orthos tatic standing] Respiratory Rate 24 20 Blood Pressure 200/83 H Blood Pressure [Le ft Upper Arm] 158/69 H Blood Pressure [or thostatic lying] Blood Pressure [or thostatic sitting] Blood Pressure [or thostatic standing ] Pulse Oximetry 89 92 94 Oxygen Delivery Me thod Room Air 10/18/24 17:30 10/18/24 18:16 Temperature Pulse Rate 54 L Pulse Rate [Pulse Oximeter] Pulse Rate [orthos tatic lying Pulse Oximeter] 56 L Pulse Rate [orthos tatic sitting] 58 L Pulse Rate [orthos tatic standing] 64 Respiratory Rate 14 Blood Pressure Blood Pressure [Le ft Upper Arm] Blood Pressure [or thostatic lying] 201/91 H Blood Pressure [or thostatic sitting] 180/87 H Blood Pressure [or thostatic standing ] 173/82 H Pulse Oximetry 94 Oxygen Delivery Me thod Documenting provider has reviewed patient's vital signs: yes Course Vital Signs Vital signs: Initial Vital Signs Temperature 97.3 F L 10/18/24 15:15 Temperature Source Temporal Artery Scan 10/18/24 15:15 Pulse Rate 55 L 10/18/24 15:15 Respiratory Rate 10/18/24 15:15 Blood Pressure 158/69 H 10/18/24 15:15 Blood Pressure Mean 98 10/18/24 15:15 Blood Pressure Position Supine 10/18/24 15:15 Pulse Oximetry 89 10/18/24 15:15 Oxygen Delivery Method Room Air 10/18/24 15:15 Vital Signs Temperature 97.3 F L 10/18/24 15:15 Pulse Rate 55 L 10/18/24 15:15 Respiratory Rate 10/18/24 15:15 Blood Pressure 158/69 H 10/18/24 15:15 Pulse Oximetry 89 10/18/24 15:15 Oxygen Delivery Method Room Air 10/18/24 15:15 Temperature 97.3 F L 10/18/24 15:15 Pulse Rate 56 L 10/18/24 18:16 Respiratory Rate 14 10/18/24 17:30 Blood Pressure 201/91 H 10/18/24 18:16 Pulse Oximetry 94 10/18/24 17:30 Oxygen Delivery Method Room Air 10/18/24 15:15 Medications Administered Medications: Discontinued Medications Generic Name Dose Route Start Last Admin Trade Name Freq PRN Reason Stop Dose Admin Sodium Chloride 500 mls @ 500 mls/hr 10/18/24 15:46 10/18/24 17:20 0.9 % Sodium Chloride 500 Ml IV 10/18/24 16:45 Infused .Q1H ONE Infusion Sodium Chloride 500 mls @ 1,000 mls/hr 10/18/24 18:47 10/18/24 18:45 0.9 % Sodium Chloride 500 Ml IV 10/18/24 19:16 Infused .Q30M ONE Infusion Medical Decision Making MDM Narrative Medical decision making narrative: Generally appears well and states that she feels well here in the emergency department. There are still concerns of this temporary confusion in the setting of dementia. Not sure what to make of these visual changes. Might have represented transient ischemia/stroke though not describing diplopia. Evaluate syncope from cardiac perspective as well. Monitor for arrhythmia. There has been head injury along with syncope and altered mental status will be doing a CT of the head. DNR code status CT head and been by me shows changes in the right occipital area consistent with prior ischemic CVA. INDICATION: 84-year-old female with syncope. Fall. TECHNIQUE: CT head without contrast. COMPARISON: CT head December 13, 2021 FINDINGS: CSF spaces: Within normal limits for age. No fluid collections. Ventricles: Commensurate with sulci. No Hydrocephalus. Brain parenchyma: No mass lesion, hemorrhage, or acute infarction. Stable right parieto-occipital encephalomalacia consistent with remote infarct. Minor stable multifocal areas of decreased attenuation in the white matter are non-specific but consistent with small vessel/ischemic changes. Midline Structures: Normal. No shift. Orbits: Normal. Vessels: Atherosclerotic calcifications. Paranasal sinuses: Progression of mild mucosal thickening and air-fluid level right sphenoid sinus Mastoid sinuses: Normal. Skull base and calvarium: No fractures or significant abnormalities. Stable thickening of the right frontal outer table consistent with remote injury. IMPRESSION: 1. No new or acute intracranial abnormalities. 2. Stable right parieto-occipital encephalomalacia status post infarct. 3. Progression of mild mucosal thickening and air-fluid level right sphenoid sinus. Please note that all CT scans at this facility use dose modulation, iterative reconstruction, and/or weight-based dosing when appropriate to reduce radiation dose to as low as reasonably achievable. Dictated by Matheus Rivero MD @ 10/18/2024 4:12:40 PM I did discuss findings on with Lori and her family that this represents history of CVA not just TIAs as had been initially described. Labs are reassuring. Urinalysis lightly positive. Without clear symptoms though would consider waiting for cultures to initiate treatment. Did check orthostatics during time in the ER. Was positive with reproduction of some dizziness and more than 20 point drop in systolic pressure. Was further hydrated. Ambulated about the emergency department quite well with good energy. Blood pressures had remained elevated during time in the emergency department. I think outpatient follow-up would be appropriate here. Monitored on oximetry and outpatient pharmacy manager during time in the emergency department without further event. Discharged to care of daughters. Medical Records Medical records reviewed: Yes I reviewed the patient's medical records Lab Data Lab results reviewed: Yes I reviewed the patient's lab results Labs: Lab Results 10/18/24 10/18/24 10/18/24 Range/Units 15:48 16:05 19:28 WBC 6.44 (4.50-11.00) K/uL RBC 4.30 (4.00-5.20) m/uL Hgb 13.6 (12.0-16.0) gm/dL Hct 41.9 (33.0-51.0) % MCV 97 (80-100) fL MCH 32 (26-34) pg MCHC 33 (32-36) gm/dL RDW Coeff of Kathleen 14.8 (11.5-15.5) % Plt Count 211 (140-440) K/uL Neut % (Auto) 69.6 (42.0-72.0) % Lymph % (Auto) 14.3 L (20-44) % [place] % (Auto) 13.4 H (0.0-11.0) % Eos % (Auto) 1.9 (0.0-7.0) % Baso % (Auto) 0.5 (0.0-3.0) % Neut # (Auto) 4.49 (1.7-7.0) K/uL Lymph # (Auto) 0.90 (0.90-2.90) K/uL [place] # (Auto) 0.90 (0.00-0.90) K/UL Eos # (Auto) 0.12 (0.00-0.50) K/uL Baso # (Auto) 0.03 (0.00-0.30) K/uL Abs Immat Gran (auto) 0.02 (0.00-0.30) K/uL Imm/Tot Granulo (auto) 0.3 % Sodium 136 (135-149) mmol/L Potassium 4.0 (3.6-5.1) mmol/L Chloride 102 (96-114) mmol/L Carbon Dioxide 26 (20-32) mmol/L Anion Gap 8 (7-15) mEq/L BUN 19 (7-30) mg/dL Creatinine 0.9 (0.5-1.5) mg/dL Estimated GFR 63 ml/min Glucose 110 (60-115) mg/dL Calcium 9.2 (8.4-10.6) mg/dL Troponin I < 0.01 (0.01-0.04) ng/mL C-Reactive Protein 0.9 (0.5-1.0) mg/dL NT-Pro-B Natriuret Pep 609 H (See Note) pg/mL Urine Color Yellow (Yellow) Urine Appearance Clear (Clear) Urine pH 7.0 (5.0-8.5) Ur Specific [place] 1.015 (1.000-1.030) Urine Protein Negative (Negative) Urine Glucose (UA) Negative (Negative) Urine Ketones Trace A (Negative) Urine Blood Negative (Negative) Urine Nitrite Negative (Negative) Urine Bilirubin Negative (Negative) Urine Urobilinogen 0.2 (0.2-1.0) Ur Leukocyte Esterase 1+ A (Negative) Urine RBC 2-5 A (0-2) Urine WBC 5-10 A (0-5) Ur Squamous Epith Cells Few (None-Few) Urine Bacteria None (None) POC Troponin I 0.00 L (0.01-0.04) ng/ml Discharge Plan Discharge Clinical Impression: Altered mental status, Dementia Patient Disposition: Home w/ Parent or Adult Condition: Improved Additional Instructions: Very happy that your daughter can stay with you tonight. Stay well-hydrated. I hope you have a great day tomorrow. We will be culturing your urine and will call you if it looks to potentially require treatment. Return for new and focal weakness, marked increase in headache or experiencing vision loss, fever. Consider follow-up with an eye clinic for an eye exam. Would also consider checking your blood pressure over this next week once daily after period of rest to see if might potentially require further treatment in primary care. Prescriptions: No Action fluoxetine 20 mg capsule 20 mg PO DAILY Patient Comments: TAKE ONE CAPSULE BY MOUTH (20MG) ONCE DAILY folic acid 1 mg tablet 1 mg PO DAILY Patient Comments: TAKE ONE TABLET BY MOUTH ONCE DAILY methotrexate sodium 2.5 mg tablet 15 mg PO .weekly Patient Comments: TAKE 6 TABLETS (15MG) BY MOUTH ONCE WEEKLY Follow Up/Referrals: Ravi Sorensen MD [Primary Care Provider, Family Practice] Stand Alone Forms: [employer] Info Instructions
--- NOTE | 2024-10-18 15:46 | CRLHL7_ITS ---
For Patients: As a result of the Century Cures Act, medical imaging exams and procedure reports are released immediately into your electronic medical record. You may view this report before your referring provider. If you have questions, please contact your health care provider. INDICATION: 84-year-old female with syncope. Fall. TECHNIQUE: CT head without contrast. COMPARISON: CT head December 13, 2021 FINDINGS: CSF spaces: Within normal limits for age. No fluid collections. Ventricles: Commensurate with sulci. No Hydrocephalus. Brain parenchyma: No mass lesion, hemorrhage, or acute infarction. Stable right parieto-occipital encephalomalacia consistent with remote infarct. Minor stable multifocal areas of decreased attenuation in the white matter are non-specific but consistent with small vessel/ischemic changes. Midline Structures: Normal. No shift. Orbits: Normal. Vessels: Atherosclerotic calcifications. Paranasal sinuses: Progression of mild mucosal thickening and air-fluid level right sphenoid sinus Mastoid sinuses: Normal. Skull base and calvarium: No fractures or significant abnormalities. Stable thickening of the right frontal outer table consistent with remote injury. IMPRESSION: 1. No new or acute intracranial abnormalities. 2. Stable right parieto-occipital encephalomalacia status post infarct. 3. Progression of mild mucosal thickening and air-fluid level right sphenoid sinus. Please note that all CT scans at this facility use dose modulation, iterative reconstruction, and/or weight-based dosing when appropriate to reduce radiation dose to as low as reasonably achievable. Dictated by Matheus Rivero MD @ 10/18/2024 4:12:40 PM (Electronically Signed)
[2024-10-18 16:12] VITALS: O2SAT 92
[2024-10-18 16:14] LABS: Basophils Absolute Auto 0.03 K/uL (0.00-0.30); Basophils Percent Auto 0.5 % (0.0-3.0); Eosinophils Absolute Auto 0.12 K/uL (0.00-0.50); Eosinophils Percent Auto 1.9 % (0.0-7.0); Hematocrit 41.9 % (33.0-51.0); Hemoglobin* 13.6 gm/dL (12.0-16.0); Immature Granulocytes Abs Auto 0.02 K/uL (0.00-0.30); Immature Granulocytes Pct Auto 0.3 %; Lymphocytes Percent Auto 14.3 % (20-44); Mean Corpuscular HGB Conc 33 gm/dL (32-36); Mean Corpuscular Hemoglobin 32 pg (26-34); Mean Corpuscular Volume 97 fL (80-100); Monocytes Percent Auto 13.4 % (0.0-11.0); Neutrophils Absolute Auto 4.49 K/uL (1.7-7.0); Neutrophils Percent Auto 69.6 % (42.0-72.0); Platelet Count* 211 K/uL (140-440); RDW Coefficient of Variation % 14.8 % (11.5-15.5); White Blood Count* 6.44 K/uL (4.50-11.00)
[2024-10-18 16:16] LABS: Slide Review Reflex No
[2024-10-18] MEDS: 0.9 % SODIUM CHLORIDE 500 ML 500 ML IV (16:27)
[2024-10-18 16:30] LABS: Chloride* 102 mmol/L (96-114); Sodium* 136 mmol/L (135-149)
[2024-10-18 16:34] LABS: Anion Gap 8 mEq/L (7-15); Blood Urea Nitrogen* 19 mg/dL (7-30); Calcium* 9.2 mg/dL (8.4-10.6); Carbon Dioxide* 26 mmol/L (20-32); Creatinine* 0.9 mg/dL (0.5-1.5); Estimated Glomerular Filt Rate 63 ml/min; Glucose* 110 mg/dL (60-115)
[2024-10-18 16:37] LABS: C Reactive Protein* 0.9 mg/dL (0.5-1.0)
[2024-10-18 16:45] LABS: NT Pro B Type NatriureticPept* 609 pg/mL (See Note)
[2024-10-18 16:50] LABS: Troponin I* < 0.01 ng/mL (0.01-0.04)
[2024-10-18 17:14] VITALS: BP 200/83; PULSE 55; RESP 20; O2SAT 94
[2024-10-18 17:30] VITALS: PULSE 54; RESP 14; O2SAT 94
[2024-10-18] MEDS: 0.9 % SODIUM CHLORIDE 500 ML 500 ML 1000 ML IV (18:15)
[2024-10-18 18:16] VITALS: BP 173/82; BP 180/87; BP 201/91; PULSE 56; PULSE 58; PULSE 64
[2024-10-18 19:33] LABS: Appearance Urine Clear (Clear); Bilirubin Urine Negative (Negative); Blood Urine Negative (Negative); Color Urine Yellow (Yellow); Glucose Urine Negative (Negative); Ketones Urine Trace (Negative); Leukocyte Esterase Urine 1+ (Negative); Nitrite Urine Negative (Negative); Protein Urine Negative (Negative); Specific Gravity Urine 1.015 (1.000-1.030); Urobilinogen Urine 0.2 (0.2-1.0)
[2024-10-18 19:59] LABS: Squamous Epithelial Cell Urine Few (None-Few)
== END 2024-10-18 20:48 | disposition home or self-care (01) ==
PROVIDERS: Emergency Provider Family Medicine; PCP Family Medicine
DX: R41.82 Altered mental status, unspecified (principal); F03.90 Unspecified dementia, unspecified severity, without behavioral disturbance, psychotic disturbance, mood disturbance, and anxiety; H53.8 Other visual disturbances; Z66 Do not resuscitate
CPT/HCPCS: 36415; 70450; 80048; 81001; 83880; 84484; 85025; 86140; 87086; 93005; 94761; 96360; 99284; 99285; J7030

== ENCOUNTER 2024-11-20 13:40 | Outpatient (REF) | payer MEDICARE, OTHER, SELFPAY ==
[2024-11-20 13:55] LABS: Appearance Urine Clear (Clear)
--- OUTSIDE RECORDS SUMMARY | 2024-11-21 00:12 | XMS_ITS ---
Author Name Auto Generated, Auto Generated Organization [employer] Functional Status No Results Mental Status No Results Allergies and Intolerances No Known Allergies Problems Active Concerns * Bug bite, initial encounter* Code: [id number] * Start Date: MonOct 13 21:52:00 EDT 2024 * End Date: * Text: Reason for Referral
--- OUTSIDE RECORDS SUMMARY | 2024-11-21 00:14 | XMS_ITS | Clinical Summary ---
Author Organization [place] Address [facility] [place] [address] Care Team Providers Care Budget Controller Name Role Phone Guerrero Hodge MD Primary Care Provider +1- [phone] Jane Acosta MD Unavailable Allergies No known [...] per calendar year) 2024 02/10/2022 INFLUENZA VACCINE (#1) 2024 , 02/03/2022, 02/22/2021, Additional history exists ADVANCE CARE PLANNING 09/03/2028 09/04/2023, 022 PNEUMOCOCCAL VACCINE 50+ YEARS Completed 11/04/2015, 05/19/2006 TSH W/FREE T4 REFLEX Completed 12/21/2021 HPV VACCINE (No Doses Required) Completed MENINGITIS VACCINE Aged Out No longer eligible based on patient's age to complete this topic Procedures Procedure Name Priority Date/Time Associated Diagnosis Comments CBC WITH PLATELETS & DIFFERENTIAL Routine 02/08/2022 5:18 AM CDT senior care (current) use of antibiotics Osteomyelitis of vertebra, lumbar region (H) Essential (primary) hypertension BASIC METABOLIC PANEL Routine 02/08/2022 5:18 AM CDT keno terminal operator (current) use of antibiotics Osteomyelitis of vertebra, [...] and gender (Leah et al., NEJ, DOI: 10.1056/[id number]) Blood STRUCTURE OF RIGHT UPPER LIMB / Unknown Venipuncture / Unknown 02/08/2022 5:18 AM CDT 02/08/2022 10:18 AM CDT us Cori Hogan MD LAB - BLOOD ORDERABLES Final R esult U LABORATORY [facility] [place] Core Lab [address] [facility], [address] [id number], [facility] [phone] * TSH with free T4 reflex (12/21/2021 4:17 AM CDT) TSH 2.15 0.30 - 4.20 uIU/mL 12/21/2021 6:52 AM CDT [facility] Blood STRUCTURE OF RIGHT UPPER LIMB / Unknown Venipuncture / Unknown 12/21/2021 4:17 AM CDT 12/21/2021 4:22 AM CDT Ang Madrid MD LAB - BLOOD ORDERABLES Final Result [facility] [place] Core Lab [address] [facility], [address] [address], [facility] [phone] * (ABNORMAL) Comprehensive metabolic panel (12/21/2021 4:17 [...] includes age and gender (Leah et al., NEJM, DOI: 10.1056/[id number]) Blood STRUCTURE OF RIGHT UPPER LIMB / Unknown Venipuncture / Unknown 12/21/2021 4:17 AM CDT 12/21/2021 4:22 AM CDT Ang Madrid MD LAB - BLOOD ORDERABLES Final Result [facility] [place] Core Lab [address] [facility], [address] [place] [address], [facility] [phone] from Last 3 Months or Most Recently Relevant to Health Maintenance Insurance [employer] MEDICARE Advance Directives For more information, please contact: [phone] * No CPR- Do NOT Intubate (Latest [...] continue PREVIOUSLY ORDERED code status Care Teams Budget Controller Relationship Specialty Start Date End Date Guerrero Hodge MD PCP - General Family Medicine 12/21/21 Jane Acosta MD Resident Internal Medicine 12/30/21
--- OUTSIDE RECORDS SUMMARY | 2024-11-21 00:14 | XMS_ITS | Clinical Summary ---
Author Organization [facility] Address [address] [place] [address] Care Team Providers Care Independent Video Producer Name Role Phone Guerrero Hodge MD Primary Care Provider +1- [phone] Allergies No known active allergies Medications aspirin [...] 04/01/2021, 06/11/2020, Additional history exists Influenza Vaccine (#1) 2024 , 02/22/2019, 02/07/2018, Additional history exists DEXA/DXA scan for age 65+ Completed 2007 (Completed outside of [facility]) Pneumococcal series for age 50+ Completed 11/04/2015, 05/19/2006 Hepatitis B series for 19+ Aged Out N o longer eligible based on patient's age to complete this topic Insurance Soft Tissue Regeneration MR PB ONLY [employer] HB MEDICARE PART B HB ONLY APT [id number] [facility] [place] [id number] MEDICARE PROVIDER BASED [employer] Advance Directives Documents on File Type Date Recorded Patient Sharepoint Engineer Expl anation POLST 11/17/2021 * DNR (Latest Code Status on File) Date Activated Date Inactivated Comments 01/28/2022 7:58 AM 01/28/2022 3:12 PM With yana wallace Question Answer Comments Code Status Discussion: Reviewed Preferences * Full Code Date Activated Date Inactivated Comments 01/27/2022 2:48 PM 01/28/2022 7:58 AM Question Answer Comments Code Status Discussion: Reviewed Preferences Care Teams Independent Video Producer Relationship Specialty Start Date End Date [place] [address] PCP - General Family Practice 12/14/21
== END 2024-11-20 13:41 | disposition home or self-care (01) ==
LOC: NPINS 13:40
PROVIDERS: PCP Family Medicine; Visit Provider Nurse Practitioner Gerontology
DX: R53.83 Other fatigue (principal)
CPT/HCPCS: 81001; 81003; 87086

== ENCOUNTER 2025-01-05 11:05 | Outpatient (CLI) | payer MEDICARE, OTHER, SELFPAY | END 2025-01-05 11:06 | disposition home or self-care (01) | LOC: AMB 01-14 13:07 | PROVIDERS: PCP Family Medicine; Visit Provider Family Medicine | DX: R07.89 Other chest pain (principal) | CPT/HCPCS: A0425; A0427 ==

== ENCOUNTER 2025-01-05 11:32 | Emergency (ER) | payer MEDICARE, OTHER, SELFPAY ==
[2025-01-05] VITALS (26 sets, daily range): BP systolic 147–218; BP diastolic 68–112; PULSE 51–64; RESP 12–24; TEMP 36.4; O2SAT 93–97; BMI 24.9
--- OUTSIDE RECORDS SUMMARY | 2025-01-05 11:34 | XMS_ITS | Clinical Summary ---
Author Organization [facility] Address [address] [place] [address] Care Team Providers Care Hot Metal Mixer Operator Helper Name Role Phone Guerrero Hodge MD Primary Care Provider [phone]- [phone] Allergies No known active allergies Medications aspirin [...] history exists COVID-19 vaccine series ( season) 2024 10/25/2021, 04/01/2021, 06/11/2020, Additional history exists Influenza Vaccine (#1) 2024 , 02/22/2019, 02/07/2018, Additional history exists DEXA/DXA scan for age 65+ Completed 2007 (Completed outside of [facility]) Pneumococcal series for age 50+ Completed 11/04/2015, 05/19/2006 Hepatitis B series for 19+ Aged Out N o longer eligible based on patient's age to complete this topic Insurance [employer] MR PB ONLY [employer] HB MEDICARE PART B HB ONLY [id number] [facility] [place] [id number] MEDICARE PROVIDER BASED [place] Advance Directives Documents on File Type Date Recorded Patient Loft Worker Pile Driving Expl anation POLST 11/17/2021 * DNR (Latest Code Status on File) Date Activated Date Inactivated Comments 01/28/2022 7:58 AM 01/28/2022 3:12 PM With yana wallace Question Answer Comments Code Status Discussion: Reviewed Preferences * Full Code Date Activated Date Inactivated Comments 01/27/2022 2:48 PM 01/28/2022 7:58 AM Question Answer Comments Code Status Discussion: Reviewed Preferences Care Teams Hot Metal Mixer Operator Helper Relationship Specialty Start Date End Date [place] [address] PCP - General Family Practice 12/14/21
--- OUTSIDE RECORDS SUMMARY | 2025-01-05 11:34 | XMS_ITS | Clinical Summary ---
Author Organization [place] Address Formerly [facility] [place] [address] Care Team Providers Care Telephone Betting Clerk Name Role Phone Guerrero Hodge MD Primary Care Provider [phone]- [phone] Jane Acosta MD Unavailable Allergies No known [...] 10/29/2023 10/28/2013, 05/19/2006, 02/17/1997, Additional history exists PHQ-2 (once per calendar year) 2024 02/10/2022 COVID-19 VACCINE ( season) 2024 02/24/2022, 10/25/2021, 04/01/2021, Additional history exists INFLUENZA VACCINE (#1) 2024 , 02/03/2022, 02/22/2021, [...] & DIFFERENTIAL Routine 02/08/2022 5:18 AM CDT [facility] (current) use of antibiotics Osteomyelitis of vertebra, lumbar region (H) Essential (primary) hypertension BASIC METABOLIC PANEL Routine 02/08/2022 5:18 AM CDT regulatory coordinator (current) use of antibiotics Osteomyelitis of vertebra, [...] and gender (Leah et al., NEJ, DOI: 10.1056/[id number]) Blood STRUCTURE OF RIGHT UPPER LIMB / Unknown Venipuncture / Unknown 02/08/2022 5:18 AM CDT 02/08/2022 10:18 AM CDT us Cori Hogan MD LAB - BLOOD ORDERABLES Final R esult [facility] [address] [facility], [address] [id number], [facility] [phone] * TSH with free T4 reflex (12/21/2021 4:17 AM CDT) TSH 2.15 0.30 - 4.20 uIU/mL 12/21/2021 6:52 AM CDT [facility] Blood STRUCTURE OF RIGHT UPPER LIMB / Unknown Venipuncture / Unknown 12/21/2021 4:17 AM CDT 12/21/2021 4:22 AM CDT Ang Madrid MD LAB - BLOOD ORDERABLES Final Result [facility] [address] [facility], [address] [address], [facility] [phone] * (ABNORMAL) Comprehensive metabolic panel (12/21/2021 4:17 [...] and gender (Leah et al., NEJM, DOI: 10.1056/[id number]) Blood STRUCTURE OF RIGHT UPPER LIMB / Unknown Venipuncture / Unknown 12/21/2021 4:17 AM CDT 12/21/2021 4:22 AM CDT Ang Madrid MD LAB - BLOOD ORDERABLES Final Result [facility] [address], [address] [place] [address], [facility] [phone] from Last 3 Months or Most Recently Relevant to Health Maintenance Insurance [employer] MEDICARE Advance Directives For more information, please contact: [phone] * No CPR- Do NOT Intubate (Latest [...] continue PREVIOUSLY ORDERED code status Care Teams Telephone Betting Clerk Relationship Specialty Start Date End Date Guerrero Hodge MD PCP - General Family Medicine 12/21/21 Jane Acosta MD Resident Internal Medicine 12/30/21
--- NOTE | 2025-01-05 11:47 | ED.GENADULT ---
HPI - General Adult General Date Seen: 01/05/25 Chief complaint: Chest Pain Stated complaint: Chest Pains Time Seen by Provider: 01/05/25 11:33 Source: patient, family and EMS Mode of arrival: EMS Limitations: no limitations History of Present Illness HPI narrative: Patient is an 84-year-old female with a history of hypertension, CHF, hard of hearing, dementia presenting to the emergency department for chest pain. She states she woke up this morning and was having chest pain. She is unsure what time it started. Describes it as just pain in her lower sternum/epigastric region. States the pain is improving. Has never had pain like this before. Her daughters in the room with her and states that she was called as soon as patient was sent to the emergency department in does state the patient seems to be mostly acting like herself but does seem may be a little bit pale. She does states the patient seemed off yesterday. Patient lives in assisted living but does most of her cares herself. Patient has not had anything to eat or drink yet today but had a normal meal yesterday. Has not had any constipation or diarrhea. Denies any nausea. States pain is worse when she takes a deep breath. No history of blood clots. Denies fevers, chills, weakness, numbness, shortness of breath, dysuria, polyuria. Related Data Home Medications ?Medication ?Instructions ?Recorded ?Confirmed fluoxetine 20 mg capsule 20 mg PO DAILY 12/04/21 01/05/25 folic acid 1 mg tablet 1 mg PO DAILY 12/04/21 01/05/25 methotrexate sodium 2.5 mg tablet 15 mg PO .weekly 12/04/21 10/18/24 Allergies Allergy/AdvReac Type Severity Reaction Status Date / Time No Known Drug Allergies Allergy Verified 01/05/25 11:41 Review of Systems Status of ROS: Reports: 10 or more systems reviewed and unremarkable except as noted in History and below [facility] Medical History Durable power of trade mark attorney in chart Health care directive on file ?Z78.9 - Other specified health status (ICD-10) Hypertensive heart disease with biventricular congestive heart failure ?I11.0 - Hypertensive heart disease with heart failure (ICD-10) ?I50.82 - Biventricular heart failure (ICD-10) CHF with unknown LVEF ?I50.9 - Heart failure, unspecified (ICD-10) Essential (primary) hypertension ?I10 - Essential (primary) hypertension (ICD-10) Dysthymia ?F34.1 - Dysthymic disorder (ICD-10) Sensorineural hearing loss (SNHL) of both ears ?H90.3 - Sensorineural hearing loss, bilateral (ICD-10) Memory deficit ?R41.3 - Other amnesia (ICD-10) Cognitive impairment ?R41.89 - Other symptoms and signs involving cognitive functions and awareness (ICD-10) Methotrexate, supervisor intermediates, current use ?Z79.899 - Other supervisor intermediates (current) drug therapy (ICD-10) Rheumatoid arthritis, seropositive ?M05.9 - Rheumatoid arthritis with rheumatoid factor, unspecified (ICD-10) Surgical History History of section ?Z98.891 - History of uterine scar from previous surgery (ICD-10) Family History Mother Gastric cancer Father Cancer Brother Cancer Social History Highest level of school completed/degree received: don't know Smoking Status: Unknown if ever smoked Do you use any of these nicotine containing products: None Second hand tobacco smoke exposure: No How often do you have a drink containing alcohol: monthly or less AUDIT-C Alcohol total score: 1 Non-prescribed substance use: denies use Exam Narrative: Exam Narrative: Const: Well-nourished, Well-developed, in mild distress Eyes: PERRL, no conjunctival injection, and symmetrical lids HENT: Atraumatic external nose and ears. Moist mucous membranes. Neck: Symmetric, trachea midline, No thyromegaly. CVS: RRR, No murmurs or gallops. Peripheral pulses 2+ and equal in all extremities, lower sternal chest tenderness that does not reproduce her pain RESP: Unlabored respiratory effort. Clear to auscultation bilaterally. GI: Diffuse abdominal tenderness worse in the epigastric region, Nondistended, No rebound or guarding. MSK:Extremities w/o deformity, Normal Active ROM Skin: Warm, Dry. No rashes or lesions. Neuro: Normal Muscle tone, No focal neurological deficits. Psych: Awake, Alert, & Oriented x3. Appropriate mood and affect. Const: Vital Signs, click to edit/add: Vital Signs - 24 hr 01/05/25 11:40 01/05/25 11:41 01/05/25 11:42 Temperature 97.6 F Pulse Rate 53 L 53 L Pulse Rate [Pulse Oximeter] 53 L Respiratory Rate 16 18 Blood Pressure 192/86 H Blood Pressure [Ri ght Upper Arm] 192/86 H Pulse Oximetry 96 93 96 Oxygen Delivery Me thod Room Air 01/05/25 11:45 01/05/25 12:00 01/05/25 12:02 Temperature Pulse Rate 54 L 54 L 52 L Pulse Rate [Pulse Oximeter] Respiratory Rate 14 18 22 Blood Pressure 196/110 H Blood Pressure [Ri ght Upper Arm] Pulse Oximetry 94 95 95 Oxygen Delivery Me thod 01/05/25 12:25 01/05/25 12:28 01/05/25 12:30 Temperature Pulse Rate 53 L 51 L Pulse Rate [Pulse Oximeter] Respiratory Rate 21 23 24 Blood Pressure 194/112 H Blood Pressure [Ri ght Upper Arm] Pulse Oximetry 95 95 Oxygen Delivery Me thod 01/05/25 12:32 01/05/25 13:02 01/05/25 13:15 Temperature Pulse Rate 52 L 59 L 51 L Pulse Rate [Pulse Oximeter] Respiratory Rate 24 15 12 Blood Pressure 191/91 H Blood Pressure [Ri ght Upper Arm] Pulse Oximetry 94 93 96 Oxygen Delivery Me thod 01/05/25 13:27 01/05/25 13:28 01/05/25 13:30 Temperature Pulse Rate 51 L 51 L 56 L Pulse Rate [Pulse Oximeter] Respiratory Rate 24 18 22 Blood Pressure 218/90 H Blood Pressure [Ri ght Upper Arm] Pulse Oximetry 97 96 97 Oxygen Delivery Me thod 01/05/25 13:32 01/05/25 13:45 01/05/25 14:00 Temperature Pulse Rate 55 L 59 L 62 Pulse Rate [Pulse Oximeter] Respiratory Rate 22 24 24 Blood Pressure 186/79 H Blood Pressure [Ri ght Upper Arm] Pulse Oximetry 97 96 94 Oxygen Delivery Me thod 01/05/25 14:02 01/05/25 14:15 01/05/25 14:30 Temperature Pulse Rate 64 60 61 Pulse Rate [Pulse Oximeter] Respiratory Rate 14 Blood Pressure 147/70 H Blood Pressure [Ri ght Upper Arm] Pulse Oximetry 96 96 96 Oxygen Delivery Me thod 01/05/25 14:32 Temperature Pulse Rate 61 Pulse Rate [Pulse Oximeter] Respiratory Rate 21 Blood Pressure 155/73 H Blood Pressure [Ri ght Upper Arm] Pulse Oximetry 96 Oxygen Delivery Me thod Course Vital Signs Vital signs: Initial Vital Signs Respiratory Effort Normal 01/05/25 11:32 Respiratory Depth Normal 01/05/25 11:32 Respiratory Pattern Normal 01/05/25 11:32 Vital Signs Pulse Rate 53 L 01/05/25 11:40 Blood Pressure 192/86 H 01/05/25 11:40 Pulse Oximetry 96 01/05/25 11:40 Temperature 97.6 F 01/05/25 11:42 Pulse Rate 61 01/05/25 14:32 Respiratory Rate 21 01/05/25 14:32 Blood Pressure 155/73 H 01/05/25 14:32 Pulse Oximetry 96 01/05/25 14:32 Oxygen Delivery Method Room Air 01/05/25 11:42 Medications Administered Medications: Discontinued Medications Generic Name Dose Route Start Last Admin Trade Name Freq PRN Reason Stop Dose Admin Hydralazine HCl 10 mg 01/05/25 13:12 01/05/25 13:25 Hydralazine Hcl 20 Mg/Ml Inj IVP 01/05/25 13:13 10 mg ONCE ONE Administration Medical Decision Making [facility] Narrative Medical decision making narrative: Patient is an 84-year-old female presenting for chest pain. The differential diagnosis of chest pain is broad and includes common etiologies such as musculoskeletal strain, GERD, pneumonia, etc. More serious etiologies considered include PE, coronary artery disease, pneumothorax, aortic dissection, aortic aneurysm. Will do a D-dimer to look for signs for PE. Her vital signs the otherwise stable and seems unlikely she has aortic aneurysm or aortic dissection. Chest x-ray order to look for signs of pneumothorax or pneumonia. EKG and troponin order to look for signs of cardiac disease. She is also having epigastric pain so I will order lipase to look for signs of pancreatitis along with CBC, CMP, urinalysis. But do a CT scan to help evaluate for this also. Lab work returned showing no acute concerning abnormalities. Chest x-ray reveals no acute concerning abnormalities as reviewed by myself and the radiologist.. EKG independently reviewed by myself shows no concerning findings. Troponin within normal limits. Age adjusted D-dimer within normal limits. Urinalysis shows no signs of UTI. Viral swabs are negative. CT scan reviewed by myself and the radiologist shows no acute concerning abnormalities. Repeat troponin also within normal limits. She did have an episode of increased hypertension highest at 234/90. Did give her hydralazine for this but does have a history of hypertension that she has not take any medications for. She was having chest pain even before the hypertension and I do not believe this is hypertensive emergency. Blood pressure did improve and she still having the very mild chest pain. Has not had much change in a chest pain since she arrived. I think this is likely reflux considering the location. At this time she is safe for discharge in her and her family agree with this plan. Lab Data Labs: Lab Results 01/05/25 01/05/25 01/05/25 Range/Units 11:50 11:58 12:45 WBC 7.97 (4.50-11.00) K/uL RBC 4.51 (4.00-5.20) m/uL Hgb 14.2 (12.0-16.0) gm/dL Hct 43.2 (33.0-51.0) % MCV 96 (80-100) fL MCH 32 (26-34) pg MCHC 33 (32-36) gm/dL RDW Coeff of Kathleen 15.3 (11.5-15.5) % Plt Count 252 (140-440) K/uL Neut % (Auto) 63.7 (42.0-72.0) % Lymph % (Auto) 20.1 (20-44) % [place] % (Auto) 14.4 H (0.0-11.0) % Eos % (Auto) 0.9 (0.0-7.0) % Baso % (Auto) 0.4 (0.0-3.0) % Neut # (Auto) 5.08 (1.7-7.0) K/uL Lymph # (Auto) 1.60 (0.90-2.90) K/uL [place] # (Auto) 1.10 H (0.00-0.90) K/UL Eos # (Auto) 0.07 (0.00-0.50) K/uL Baso # (Auto) 0.03 (0.00-0.30) K/uL Abs Immat Gran (auto) 0.04 (0.00-0.30) K/uL Imm/Tot Granulo (auto) 0.5 % D-Dimer Quant (PE/DVT) 0.64 H (0.00-0.50) ug/ml Sodium 132 L (135-149) mmol/L Potassium 4.1 (3.6-5.1) mmol/L Chloride 97 (96-114) mmol/L Carbon Dioxide 29 (20-32) mmol/L Anion Gap 6 L (7-15) mEq/L BUN 30 (7-30) mg/dL Creatinine 1.0 (0.5-1.5) mg/dL Estimated Creat Clear 36.81 Estimated GFR 56 ml/min Glucose 104 (60-115) mg/dL Calcium 9.7 (8.4-10.6) mg/dL Total Bilirubin 0.7 (0.1-1.5) mg/dL AST 55 H (12-35) U/L ALT 25 (4-35) U/L Alkaline Phosphatase 60 (40-150) U/L Troponin I < 0.01 (0.01-0.04) ng/mL Total Protein 8.3 (6.0-8.3) g/dL Albumin 4.1 (3.3-5.0) g/dL Lipase 132 (23-300) U/L Urine Color Yellow (Yellow) Urine Appearance Clear (Clear) Urine pH 5.5 (5.0-8.5) Ur Specific [place] 1.025 (1.000-1.030) Urine Protein 1+ A (Negative) Urine Glucose (UA) Negative (Negative) Urine Ketones Negative (Negative) Urine Blood Negative (Negative) Urine Nitrite Negative (Negative) Urine Bilirubin Negative (Negative) Urine Urobilinogen 0.2 (0.2-1.0) Ur Leukocyte Esterase Trace A (Negative) Urine RBC 0-2 (0-2) Urine WBC 2-5 (0-5) Ur Squamous Epith Cells Few (None-Few) Amorphous Sediment Few A (None) Other Sediment FEW GRANULAR CASTS (None) Urine Bacteria Few A (None) Urine Mucus Few A (None) SARS-CoV-2 (PCR) Negative SARS-CoV-2 (Negative) Influenza Type A (PCR) Negative PCR FLU A (Negative) Influenza Type B (PCR) Negative PCR FLU B (Negative) RSV (PCR) Negative PCR RSV (Negative) POC Creatinine 1.3 (0.6-1.3) mg/dl 01/05/25 Range/Units 14:24 WBC (4.50-11.00) K/uL RBC (4.00-5.20) m/uL Hgb (12.0-16.0) gm/dL Hct (33.0-51.0) % MCV (80-100) fL MCH (26-34) pg MCHC (32-36) gm/dL RDW Coeff of Kathleen (11.5-15.5) % Plt Count (140-440) K/uL Neut % (Auto) (42.0-72.0) % Lymph % (Auto) (20-44) % [place] % (Auto) (0.0-11.0) % Eos % (Auto) (0.0-7.0) % Baso % (Auto) (0.0-3.0) % Neut # (Auto) (1.7-7.0) K/uL Lymph # (Auto) (0.90-2.90) K/uL [place] # (Auto) (0.00-0.90) K/UL Eos # (Auto) (0.00-0.50) K/uL Baso # (Auto) (0.00-0.30) K/uL Abs Immat Gran (auto) (0.00-0.30) K/uL Imm/Tot Granulo (auto) % D-Dimer Quant (PE/DVT) (0.00-0.50) ug/ml Sodium (135-149) mmol/L Potassium (3.6-5.1) mmol/L Chloride (96-114) mmol/L Carbon Dioxide (20-32) mmol/L Anion Gap (7-15) mEq/L BUN (7-30) mg/dL Creatinine (0.5-1.5) mg/dL Estimated Creat Clear Estimated GFR ml/min Glucose (60-115) mg/dL Calcium (8.4-10.6) mg/dL Total Bilirubin (0.1-1.5) mg/dL AST (12-35) U/L ALT (4-35) U/L Alkaline Phosphatase (40-150) U/L Troponin I < 0.01 (0.01-0.04) ng/mL Total Protein (6.0-8.3) g/dL Albumin (3.3-5.0) g/dL Lipase (23-300) U/L Urine Color (Yellow) Urine Appearance (Clear) Urine pH (5.0-8.5) Ur Specific [place] (1.000-1.030) Urine Protein (Negative) Urine Glucose (UA) (Negative) Urine Ketones (Negative) Urine Blood (Negative) Urine Nitrite (Negative) Urine Bilirubin (Negative) Urine Urobilinogen (0.2-1.0) Ur Leukocyte Esterase (Negative) Urine RBC (0-2) Urine WBC (0-5) Ur Squamous Epith Cells (None-Few) Amorphous Sediment (None) Other Sediment (None) Urine Bacteria (None) Urine Mucus (None) SARS-CoV-2 (PCR) (Negative) Influenza Type A (PCR) (Negative) Influenza Type B (PCR) (Negative) RSV (PCR) (Negative) POC Creatinine (0.6-1.3) mg/dl Imaging Data Chest x-ray: Attestation: I have reviewed the pertinent imaging results. Radiologist's impression: Negative chest. Dictated by Arden Dumont MD @ 01/05/2025 12:46:[address] scan abdomen pelvis: Attestation: I have reviewed the pertinent imaging results. Radiologist's impression: No acute or worrisome findings in the abdomen or pelvis. Please note that all CT scans at this facility use dose modulation, iterative reconstruction, and/or weight-based dosing when appropriate to reduce radiation dose to as low as reasonably achievable. Dictated by Danii Reza MD @ 01/05/2025 1:37:48 PM ECG Data Attestation: I personally reviewed and interpreted this ECG as follows: Prior ECG tracings: available for review Interpretation: Sinus bradycardia with a rate of 53 beats per minute, normal intervals, axis, ST or T-wave abnormalities. Appears similar to previous EKGs on file her EKG from 10/18/2024 also showed sinus bradycardia. Discharge Plan Discharge Clinical Impression: Atypical chest pain Patient Disposition: Home, Self-Care Condition: Stable Instructions: Noncardiac Chest Pain (ED) Additional Instructions: I cannot say exactly what is causing your pain but we have ruled out all emergent issues. I do recommend following up with the primary care provider. Take Tylenol as needed for pain. Return to emergency department for new or worsening symptoms. Prescriptions: No Action fluoxetine 20 mg capsule 20 mg PO DAILY Patient Comments: TAKE ONE CAPSULE BY MOUTH (20MG) ONCE DAILY folic acid 1 mg tablet 1 mg PO DAILY Patient Comments: TAKE ONE TABLET BY MOUTH ONCE DAILY methotrexate sodium 2.5 mg tablet 15 mg PO .weekly Patient Comments: TAKE 6 TABLETS (15MG) BY MOUTH ONCE WEEKLY Follow Up/Referrals: Ravi Sorensen MD [Primary Care Provider, Family Practice] Stand Alone Forms: [employer] Info Instructions
--- NOTE | 2025-01-05 12:06 | CRLHL7_ITS ---
For Patients: As a result of the Cures Act, medical imaging exams and procedure reports are released immediately into your electronic medical record. You may view this report before your referring provider. If you have questions, please contact your health care provider. INDICATION: Chest pain. COMPARISON: Portable AP chest and 15 December 2021; CT chest, abdomen and pelvis without intravenous contrast December 13, 2021. TECHNIQUE: Two-view chest. FINDINGS: Normal size cardiac silhouette. Clear lung sandhu with no evidence of acute pneumonic infiltrates or CHF. No pneumothorax or pleural effusion. IMPRESSION: Negative chest. Dictated by Arden Dumont MD @ 01/05/2025 12:46:20 PM (Electronically Signed)
[2025-01-05 12:08] LABS: Creatinine, Point-of-Care* 1.3 mg/dl (0.6-1.3)
[2025-01-05 12:11] LABS: Hematocrit* 43.2 % (33.0-51.0); Hemoglobin* 14.2 gm/dL (12.0-16.0); Immature Granulocytes Abs Auto 0.04 K/uL (0.00-0.30); Immature Granulocytes Pct Auto 0.5 %; Lymphocytes Absolute Auto 1.60 K/uL (0.90-2.90); Mean Corpuscular HGB Conc 33 gm/dL (32-36); Mean Corpuscular Hemoglobin 32 pg (26-34); Mean Corpuscular Volume 96 fL (80-100); RDW Coefficient of Variation % 15.3 % (11.5-15.5); Red Blood Count* 4.51 m/uL (4.00-5.20); White Blood Count* 7.97 K/uL (4.50-11.00)
[2025-01-05 12:13] LABS: Slide Review Reflex No
[2025-01-05 12:25] LABS: Albumin* 4.1 g/dL (3.3-5.0); Chloride* 97 mmol/L (96-114); Potassium* 4.1 mmol/L (3.6-5.1); Sodium* 132 mmol/L (135-149)
[2025-01-05 12:28] LABS: Alanine Aminotransferase* 25 U/L (4-35); Alkaline Phosphatase* 60 U/L (40-150); Anion Gap 6 mEq/L (7-15); Aspartate Amino Transferase* 55 U/L (12-35); Bilirubin Total* 0.7 mg/dL (0.1-1.5); Blood Urea Nitrogen* 30 mg/dL (7-30); Calcium* 9.7 mg/dL (8.4-10.6); Carbon Dioxide* 29 mmol/L (20-32); Creatinine* 1.0 mg/dL (0.5-1.5); Est. Creatinine Clearance* 36.81; Estimated Glomerular Filt Rate 56 ml/min; Glucose* 104 mg/dL (60-115); Total Protein* 8.3 g/dL (6.0-8.3)
[2025-01-05 12:30] LABS: D Dimer Quantitative* 0.64 ug/ml (0.00-0.50)
--- NOTE | 2025-01-05 12:33 | CRLHL7_ITS ---
For Patients: As a result of the Century Cures Act, medical imaging exams and procedure reports are released immediately into your electronic medical record. You may view this report before your referring provider. If you have questions, please contact your health care provider. INDICATION: Epigastric pain. COMPARISON: 12/20/2021 TECHNIQUE: CT of the abdomen and pelvis with intravenous contrast. Multiplanar axial, coronal, and sagittal reformats were reconstructed. Contrast: 71 mL Isovue 370. FINDINGS: Lung bases: Respiratory motion. Liver: Small focal fat along the falciform ligament. Gallbladder and bile ducts: Normal gallbladder. No bile duct dilation. Pancreas: Normal. Spleen: Normal. Adrenal glands: Normal. Kidneys: Renal size and position. There is a 2 centimeter left renal cyst. No calculi. No urinary tract dilation. Urinary bladder: Normal. Pelvis: No worrisome cyst or mass. Vessels: Heavy atherosclerosis. No aortic aneurysm. Bowel: No dilated or inflamed bowel. Normal appendix. Mild stool burden. Lymph nodes: No adenopathy. Peritoneum: No ascites. Abdominal wall: No hernia. Bones: No fractures. No focal worrisome bone lesions. IMPRESSION: No acute or worrisome findings in the abdomen or pelvis. Please note that all CT scans at this facility use dose modulation, iterative reconstruction, and/or weight-based dosing when appropriate to reduce radiation dose to as low as reasonably achievable. Dictated by Danii Reza MD @ 01/05/2025 1:37:48 PM (Electronically Signed)
[2025-01-05 12:49] LABS: PCR FLU A Negative PCR FLU A (Negative); PCR FLU B Negative PCR FLU B (Negative); PCR RSV Negative PCR RSV (Negative); SARS PCR* Negative SARS-CoV-2 (Negative)
[2025-01-05 12:56] LABS: Appearance Urine Clear (Clear)
[2025-01-05 13:10] LABS: Other Sediment Urine FEW GRANULAR CASTS
[2025-01-05] MEDS: HYDRALAZINE HCL 20 MG/ML inj 10 MG IVP (13:25)
== END 2025-01-05 15:33 | disposition home or self-care (01) ==
PROVIDERS: Emergency Provider Student in an Organized Health Care Education/Training Program; PCP Family Medicine
DX: R07.9 Chest pain, unspecified (principal)
CPT/HCPCS: 36415; 71046; 74177; 80053; 81001; 82565; 83690; 84484; 85025; 85379; 87086; 87631; 93005; 96374; 99284; 99285; J0360; Q9967

== ENCOUNTER 2025-01-09 12:39 | Outpatient (REF) | payer MEDICARE, OTHER, SELFPAY ==
[2025-01-09 12:55] LABS: Appearance Urine Clear (Clear)
== END 2025-01-09 12:40 | disposition home or self-care (01) ==
LOC: NPINS 12:39
PROVIDERS: Nurse Practitioner Gerontology; PCP Family Medicine; Visit Provider Internal Medicine Cardiovascular Disease
DX: R41.82 Altered mental status, unspecified (principal)
CPT/HCPCS: 81001; 87086